=== PATIENT | female | born 1970 | race American Indian/Alaskan Native ===

== ENCOUNTER 2020-07-10 00:55 | Emergency (ER) | payer MEDICAID, MEDICARE ==
[2020-07-10] MEDS ORDERED: ZIPRASIDONE MESYLATE 20 MG VIAL IM ONE ×2 (01:48)
[2020-07-10] MEDS ORDERED: WATER FOR INJ Sterile (PF) 10 ML IM ONE (01:49)
[2020-07-10] MEDS ORDERED: WATER FOR INJ Sterile (PF) 10 ML ONE ×2 (01:50)
--- NOTE | 2020-07-10 01:52 | Emergency Department Report ---
ED Psych HPI - General Chief Complaint: Psych Stated Complaint: PSYCH Time Seen by Provider: 07/10/20 01:39 Source: patient, EMS Mode of arrival: Ambulatory - History of Present Illness Initial Comments: Patient is 49 years old female with history of hypertension, diabetes and un known psychiatric medical history. Patient presented to the emergency room via EMS from a local assisted. Patient screaming loudly and very agitated. Patient is talking to herself. Patient stated that she is seeing things and hearing voices. Patient denied any suicidal ideation or homicidal ideation. Patient obviously responding to internal stimuli. Patient is in acute psychosis. Patient given Geodon 20 mg IM. Complaint: altered mental status -: unknown Associated Psychiatric Symptoms: racing thoughts, auditory hallucinations, visual hallucinations - Related Data Home Medications Medication Instructions Recorded Confirmed Last Taken FLUoxetine HCL [Prozac] 10 mg PO DAILY 07/11/20 07/11/20 Unknown OLANZapine [Zyprexa] 2.5 mg PO DAILY 07/11/20 07/11/20 Unknown traZODone [Desyrel] 50 mg PO QHS 07/11/20 07/11/20 Unknown Allergies Allergy/AdvReac Type Severity Reaction Status Date / Time haloperidol [From Haldol] Allergy Unknown Verified 07/10/20 01:32 ED Review of Systems ROS: Stated complaint: PSYCH Other details as noted in HPI Comment: Unobtainable due to pts medical conditions ED Past Medical Hx - Past Medical History Previous Medical History?: Yes Hx Hypertension: Yes Hx Diabetes: Yes - Surgical History Past Surgical History?: Yes Additional Surgical History: "I don't remember", pt stated - Social History Smoking Status: Never Smoker Substance Use Type: None - Medications Home Medications: Home Medications Medication Instructions Recorded Confirmed Last Taken Type FLUoxetine HCL [Prozac] 10 mg PO DAILY 07/11/20 07/11/20 Unknown History OLANZapine [Zyprexa] 2.5 mg PO DAILY 07/11/20 07/11/20 Unknown History traZODone [Desyrel] 50 mg PO QHS 07/11/20 07/11/20 Unknown History ED Physical Exam - General Limitations: No Limitations General appearance: alert, other (Agitated) - Head Head exam: Present: atraumatic, normocephalic, normal inspection - Eye Eye exam: Present: normal appearance - ENT ENT exam: Present: normal exam, normal orophraynx, mucous membranes moist - Neck Neck exam: Present: normal inspection. Absent: tenderness, meningismus - Respiratory Respiratory exam: Present: normal lung sounds bilaterally - Cardiovascular Cardiovascular Exam: Present: regular rate, normal rhythm, normal heart sounds - GI/Abdominal GI/Abdominal exam: Present: soft, normal bowel sounds. Absent: distended, tenderness, guarding, rebound, rigid, organomegaly, mass, bruit, pulsatile mass, hernia - Extremities Exam Extremities exam: Present: normal inspection, normal capillary refill - Back Exam Back exam: Present: normal inspection, full ROM. Absent: CVA tenderness (R), CVA tenderness (L) - Neurological Exam Neurological exam: Present: alert, altered, CN II-XII intact, normal gait. Absent: motor sensory deficit - Psychiatric Psychiatric exam: Present: agitated, anxious, manic. Absent: homicidal ideation, suicidal ideation - Skin Skin exam: Present: warm, intact, normal color ED Course Vital Signs 07/10/20 07/10/20 07/10/20 01:25 05:53 08:30 Temperature 98.8 F 97.6 F Pulse Rate 99 H 72 68 Respiratory 16 16 18 Rate Blood Pressure 160/111 116/69 112/64 [Right] O2 Sat by Pulse 99 100 99 Oximetry ED Medical Decision Making - Lab Data Result diagrams: 07/10/20 04:12 07/10/20 04:12 Critical care attestation.: If time is entered above; I have spent that time in minutes in the direct care of this critically ill patient, excluding procedure time. ED Disposition Clinical Impression: Medical clearance for psychiatric admission Disposition: [id number] PSY HOSP/PSY UNIT Is pt being admited?: No Condition: Good Referrals: PRIMARY CARE, [Primary Care Provider] - 3-5 Days
[2020-07-10 04:35] LABS: Eosinophils # (Auto) 0.1 K/mm3 (0.0-0.4); Eosinophils % (Auto) 1.9 % (0.0-4.3); Hematocrit 38.7 % (30.3-42.9); Hemoglobin 12.7 gm/dl (10.1-14.3); Lymphocytes # (Auto) 1.9 K/mm3 (1.2-5.4); Lymphocytes % (Auto) 40.3 % (13.4-35.0); Mean Corpuscular HGB Conc 33 % (30-34); Mean Corpuscular Volume 85 fl (79-97); Monocytes # (Auto) 0.3 K/mm3 (0.0-0.8); Monocytes % (Auto) 6.5 % (0.0-7.3); Platelet Count 201 K/mm3 (140-440); Red Blood Count 4.58 M/mm3 (3.65-5.03); Red Cell Distribution Width 13.5 % (13.2-15.2)
[2020-07-10 04:37] LABS: Basophils % (Auto) 0.7 % (0.0-1.8)
[2020-07-10 04:46] LABS: Blood Urea Nitrogen 7 mg/dL (7-17); Calcium 10.3 mg/dL (8.4-10.2); Hemolysis Index 6
[2020-07-10 04:47] LABS: BUN/Creatinine Ratio 12
[2020-07-10 09:30] LABS: Bacteria,Urine 1+ /HPF (Negative); Bilirubin,Urine NEG (Negative); Blood,Urine NEG (Negative); Color,Urine Yellow (Yellow); Mucus,Urine FEW /HPF
[2020-07-10 09:46] LABS: Calcium Oxalate Crystals,Urine 1+
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
[2020-07-10] MEDS ORDERED: FLUoxetine 10 MG TAB PO SCH (11:00)
[2020-07-10 11:25] VITALS: BP 112/64
[2020-07-10 11:43] LABS: Amphetamine Screen,Urine Negative; Benzodiazepines Screen,Urine Negative; Cannabinoid Screen,Urine Negative; Cocaine Screen,Urine Negative; Methadone Screen,Urine Negative; Opiate Screen,Urine Negative
--- NOTE | 2020-07-10 17:33 | Event Note ---
Date: 07/10/20 The patient was evaluated in the emergency department for symptoms described in the history of present illness. He/she was evaluated in the context of the global COVID-19 pandemic, which necessitated consideration that the patient might be at risk for infection with the virus that causes COVID-19. Institutional protocols and algorithms that pertain to the evaluation of patients at risk for COVID-19 are in a state of rapid change based on information released by regulatory bodies including the CDC and federal and state organizations. These policies and algorithms were followed during the patient's care in the emergency department. Please note that these policies, procedures and recommendations changed on a rapid basis. Psychiatric recommendations reviewed and appreciated. Nursing documentation, emergency medicine documentation reviewed and appreciated. Patient resting comfortably in room 13 at this time, and in no acute distress. It appears she was medically cleared on her initial ER evaluation. Urinalysis reviewed and appreciated. This is a contaminated sample. To my knowledge, the patient has not articulated any urinary symptoms. Patient has been accepted to our fifth floor geriatric psychiatry unit. Lab Results 07/10/20 07/10/20 07/10/20 Range/Units 04:12 04:12 04:12 WBC (4.5-11.0) K/mm3 RBC (3.65-5.03) M/mm3 Hgb (10.1-14.3) gm/dl Hct (30.3-42.9) % MCV (79-97) fl MCH (28-32) pg MCHC (30-34) % RDW (13.2-15.2) % Plt Count (140-440) K/mm3 Lymph % (Auto) (13.4-35.0) % Gilchrist % (Auto) (0.0-7.3) % Eos % (Auto) (0.0-4.3) % Baso % (Auto) (0.0-1.8) % Lymph # (Auto) (1.2-5.4) K/mm3 Gilchrist # (Auto) (0.0-0.8) K/mm3 Eos # (Auto) (0.0-0.4) K/mm3 Baso # (Auto) (0.0-0.1) K/mm3 Seg Neutrophils % (40.0-70.0) % Seg Neutrophils # (1.8-7.7) K/mm3 Sodium 138 (137-145) mmol/L Potassium 4.2 (3.6-5.0) mmol/L Chloride 104.6 (98-107) mmol/L Carbon Dioxide 24 (22-30) mmol/L Anion Gap 14 mmol/L BUN 7 (7-17) mg/dL Creatinine 0.6 (0.6-1.2) mg/dL Estimated GFR > 60 ml/min BUN/Creatinine Ratio 12 % Glucose 237 H (65-100) mg/dL Calcium 10.3 H (8.4-10.2) mg/dL HCG, Qual (Negative) Urine Color (Yellow) Urine Turbidity (Clear) Urine pH (5.0-7.0) Ur Specific Mcintosh (1.003-1.030) Urine Protein (Negative) mg/dL Urine Glucose (UA) (Negative) mg/dL Urine Ketones (Negative) mg/dL Urine Blood (Negative) Urine Nitrite (Negative) Urine Bilirubin (Negative) Urine Urobilinogen (<2.0) mg/dL Ur Leukocyte Esterase (Negative) Urine WBC (Auto) (0.0-6.0) /HPF Urine RBC (Auto) (0.0-6.0) /HPF U Epithel Cells (Auto) (0-13.0) /HPF Urine Bacteria (Auto) (Negative) /HPF Calcium Oxalate Crystal Urine Mucus /HPF Salicylates < 0.3 L (2.8-20.0) mg/dL Urine Opiates Screen Urine Methadone Screen Acetaminophen 5.0 L (10.0-30.0) ug/mL Ur Barbiturates Screen Ur Phencyclidine Scrn Ur Amphetamines Screen U Benzodiazepines Scrn Urine Cocaine Screen U Marijuana (THC) Screen Drugs of Abuse Note Plasma/Serum Alcohol (0-0.07) % Coronavirus (PCR) (Negative) 07/10/20 07/10/20 07/10/20 Range/Units 04:12 04:12 04:12 WBC 4.6 (4.5-11.0) K/mm3 RBC 4.58 (3.65-5.03) M/mm3 Hgb 12.7 (10.1-14.3) gm/dl Hct 38.7 (30.3-42.9) % MCV 85 (79-97) fl MCH 28 (28-32) pg MCHC 33 (30-34) % RDW 13.5 (13.2-15.2) % Plt Count 201 (140-440) K/mm3 Lymph % (Auto) 40.3 H (13.4-35.0) % Gilchrist % (Auto) 6.5 (0.0-7.3) % Eos % (Auto) 1.9 (0.0-4.3) % Baso % (Auto) 0.7 (0.0-1.8) % Lymph # (Auto) 1.9 (1.2-5.4) K/mm3 Gilchrist # (Auto) 0.3 (0.0-0.8) K/mm3 Eos # (Auto) 0.1 (0.0-0.4) K/mm3 Baso # (Auto) 0.0 (0.0-0.1) K/mm3 Seg Neutrophils % 50.6 (40.0-70.0) % Seg Neutrophils # 2.3 (1.8-7.7) K/mm3 Sodium (137-145) mmol/L Potassium (3.6-5.0) mmol/L Chloride (98-107) mmol/L Carbon Dioxide (22-30) mmol/L Anion Gap mmol/L BUN (7-17) mg/dL Creatinine (0.6-1.2) mg/dL Estimated GFR ml/min BUN/Creatinine Ratio % Glucose (65-100) mg/dL Calcium (8.4-10.2) mg/dL HCG, Qual Negative (Negative) Urine Color (Yellow) Urine Turbidity (Clear) Urine pH (5.0-7.0) Ur Specific Mcintosh (1.003-1.030) Urine Protein (Negative) mg/dL Urine Glucose (UA) (Negative) mg/dL Urine Ketones (Negative) mg/dL Urine Blood (Negative) Urine Nitrite (Negative) Urine Bilirubin (Negative) Urine Urobilinogen (<2.0) mg/dL Ur Leukocyte Esterase (Negative) Urine WBC (Auto) (0.0-6.0) /HPF Urine RBC (Auto) (0.0-6.0) /HPF U Epithel Cells (Auto) (0-13.0) /HPF Urine Bacteria (Auto) (Negative) /HPF Calcium Oxalate Crystal Urine Mucus /HPF Salicylates (2.8-20.0) mg/dL Urine Opiates Screen Urine Methadone Screen Acetaminophen (10.0-30.0) ug/mL Ur Barbiturates Screen Ur Phencyclidine Scrn Ur Amphetamines Screen U Benzodiazepines Scrn Urine Cocaine Screen U Marijuana (THC) Screen Drugs of Abuse Note Plasma/Serum Alcohol < 0.01 (0-0.07) % Coronavirus (PCR) (Negative) 07/10/20 07/10/20 07/10/20 Range/Units 10:15 Unknown Unknown WBC (4.5-11.0) K/mm3 RBC (3.65-5.03) M/mm3 Hgb (10.1-14.3) gm/dl Hct (30.3-42.9) % MCV (79-97) fl MCH (28-32) pg MCHC (30-34) % RDW (13.2-15.2) % Plt Count (140-440) K/mm3 Lymph % (Auto) (13.4-35.0) % Gilchrist % (Auto) (0.0-7.3) % Eos % (Auto) (0.0-4.3) % Baso % (Auto) (0.0-1.8) % Lymph # (Auto) (1.2-5.4) K/mm3 Gilchrist # (Auto) (0.0-0.8) K/mm3 Eos # (Auto) (0.0-0.4) K/mm3 Baso # (Auto) (0.0-0.1) K/mm3 Seg Neutrophils % (40.0-70.0) % Seg Neutrophils # (1.8-7.7) K/mm3 Sodium (137-145) mmol/L Potassium (3.6-5.0) mmol/L Chloride (98-107) mmol/L Carbon Dioxide (22-30) mmol/L Anion Gap mmol/L BUN (7-17) mg/dL Creatinine (0.6-1.2) mg/dL Estimated GFR ml/min BUN/Creatinine Ratio % Glucose (65-100) mg/dL Calcium (8.4-10.2) mg/dL HCG, Qual (Negative) Urine Color Yellow (Yellow) Urine Turbidity Cloudy (Clear) Urine pH 6.0 (5.0-7.0) Ur Specific Mcintosh 1.023 (1.003-1.030) Urine Protein 30 mg/dl (Negative) mg/dL Urine Glucose (UA) >=500 (Negative) mg/dL Urine Ketones Neg (Negative) mg/dL Urine Blood Neg (Negative) Urine Nitrite Neg (Negative) Urine Bilirubin Neg (Negative) Urine Urobilinogen 2.0 (<2.0) mg/dL Ur Leukocyte Esterase Lg (Negative) Urine WBC (Auto) 85.0 H (0.0-6.0) /HPF Urine RBC (Auto) 22.0 (0.0-6.0) /HPF U Epithel Cells (Auto) 16.0 H (0-13.0) /HPF Urine Bacteria (Auto) 1+ (Negative) /HPF Calcium Oxalate Crystal 1+ Urine Mucus Few /HPF Salicylates (2.8-20.0) mg/dL Urine Opiates Screen Negative Urine Methadone Screen Negative Acetaminophen (10.0-30.0) ug/mL Ur Barbiturates Screen Negative Ur Phencyclidine Scrn Negative Ur Amphetamines Screen Negative U Benzodiazepines Scrn Negative Urine Cocaine Screen Negative U Marijuana (THC) Screen Negative Drugs of Abuse Note Disclamer Plasma/Serum Alcohol (0-0.07) % Coronavirus (PCR) Negative (Negative) Vital Signs 07/10/20 07/10/20 07/10/20 01:25 05:53 08:30 Temperature 98.8 F 97.6 F Pulse Rate 99 H 72 68 Respiratory 16 16 18 Rate Blood Pressure 160/111 116/69 112/64 [Right] O2 Sat by Pulse 99 100 99 Oximetry
[2020-07-10] MEDS ORDERED: traZODone 50 MG TAB PO SCH (22:00)
== END 2020-07-10 18:39 ==
LOC: ED 00:55
DX: R41.82 Altered mental status, unspecified (principal); I10 Essential (primary) hypertension; E11.9 Type 2 diabetes mellitus without complications; Z79.899 Other long term (current) drug therapy; Z04.6 Encounter for general psychiatric examination, requested by authority
CPT/HCPCS: 36415; 80048; 80307; 80320; 81001; 84703; 85025; 87086; G0480; J3486; U0003

== ENCOUNTER 2020-07-10 17:03 | Inpatient (IN) | payer MEDICARE ==
[2020-07-10 21:35] LABS: Alanine Aminotransferase 43 units/L (7-56); Albumin 4.2 g/dL (3.9-5); Blood Urea Nitrogen 11 mg/dL (7-17); Calcium 11.2 mg/dL (8.4-10.2); Hemolysis Index 5
[2020-07-10 21:38] LABS: BUN/Creatinine Ratio 22
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
[2020-07-11] MEDS: FLUoxetine 10 MG TAB PO SCH (10:55)
--- NOTE | 2020-07-11 19:33 | Consultation ---
History of Present Illness - Reason for Consult Consult date: 07/12/20 Medical Management Requesting physician: JOE RAJPUT - History of Present Illness 49 YO Female with HTN, DM admitted to [facility] for Psychiatric stabilization. Consult placed by Dr. Rajput for medical management. The patient was seen and evaluated in his room. Patient resting. Patient is minimally cooperative with exam and interview. Pt denies fever, chills, chest pain, palpitation, productive cough, skin rash, recent ill contacts, or known exposure to COVID-19. No reported nursing events. Past History Past Medical History: diabetes, hypertension Past Surgical History: No surgical history, Other (reviewed) Social history: single. denies: smoking, alcohol abuse Family history: diabetes, hypertension Medications and Allergies Allergies Allergy/AdvReac Type Severity Reaction Status Date / Time haloperidol [From Haldol] Allergy Unknown Verified 07/10/20 01:32 Home Medications Medication Instructions Recorded Confirmed Last Taken Type FLUoxetine HCL [Prozac] 10 mg PO DAILY 07/11/20 07/11/20 Unknown History OLANZapine [Zyprexa] 2.5 mg PO DAILY 07/11/20 07/11/20 Unknown History traZODone [Desyrel] 50 mg PO QHS 07/11/20 07/11/20 Unknown History Active Meds: Active Medications Fluoxetine HCl (Fluoxetine 10 Mg Tab) 10 mg PO DAILY [facility] Last Admin: 07/11/20 10:55 Dose: 10 mg Documented by: Trazodone HCl (Trazodone 50 Mg Tab) 50 mg PO QHS [facility] Review of Systems Constitutional: no weight loss, no weight gain, no fever, no chills Ears, nose, mouth and throat: no ear pain, no ear discharge, no decreased hearing, no nose pain, no nasal congestion Breasts: no change in shape, no swelling, no mass Cardiovascular: no chest pain, no palpitations, no edema, no syncope Respiratory: no cough, no hemoptysis, no shortness of breath Gastrointestinal: no abdominal pain, no nausea, no diarrhea, no constipation, no change in bowel habits, no coffee ground emesis Genitourinary Female: no pelvic pain, no flank pain, no dysuria, no urinary frequency, no urgency Rectal: no pain, no incontinence, no bleeding Musculoskeletal: no neck stiffness, no neck pain, no shooting arm pain Integumentary: no rash, no pruritis, no sores, no jaundice Neurological: no head injury, no transient paralysis, no paralysis, no parathesias, no numbness, no syncope Psychiatric: anxiety Endocrine: no cold intolerance, no heat intolerance, no excessive thirst, no polydipsia, no polyuria, no nocturia Hematologic/Lymphatic: no easy bruising, no easy bleeding Allergic/Immunologic: no urticaria, no wheezing Exam - Constitutional Vitals: Temp Pulse Resp BP Pulse Ox 97.9 F 79 16 135/84 97 07/11/20 09:03 07/11/20 09:03 07/11/20 09:03 07/11/20 09:03 07/11/20 09:03 General appearance: Present: obese - EENT Eyes: Present: PERRL ENT: hearing intact, clear oral mucosa - Neck Neck: Present: supple, normal ROM - Respiratory Respiratory effort: normal Respiratory: bilateral: CTA - Cardiovascular Heart Sounds: Present: S1 & S2. Absent: rub, click - Extremities Extremities: pulses symmetrical, No edema Peripheral Pulses: within normal limits - Abdominal General gastrointestinal: Present: soft, non-tender, non-distended, normal bowel sounds Female genitourinary: Present: normal - Integumentary Integumentary: Present: clear, warm, dry - Musculoskeletal Musculoskeletal: gait normal, strength equal bilaterally - Psychiatric Psychiatric: appropriate mood/affect, intact judgment & insight - Neurologic Neurologic: CNII-XII intact, moves all extremities Results - Labs CBC & Chem 7: 07/10/20 20:30 Labs: Abnormal lab results 07/10/20 07/10/20 07/10/20 Range/Units 20:30 20:30 21:50 Creatinine 0.5 L (0.6-1.2) mg/dL Glucose 303 H (65-100) mg/dL POC Glucose 280 H (70-105) mg/dL Calcium 11.2 H (8.4-10.2) mg/dL Valproic Acid < 2.8 L (50-100) ug/mL 07/11/20 07/11/20 07/11/20 Range/Units 06:30 11:35 16:14 Creatinine (0.6-1.2) mg/dL Glucose (65-100) mg/dL POC Glucose 226 H 240 H 239 H (70-105) mg/dL Calcium (8.4-10.2) mg/dL Valproic Acid (50-100) ug/mL Assessment and Plan - Patient Problems (1) HTN (hypertension) Current Visit: Yes Status: Acute Qualifiers: Hypertension type: essential hypertension Qualified Code(s): I10 - Essential (primary) hypertension Plan to address problem: Monitor BP q shift, continue medical management. (2) Diabetes Current Visit: Yes Status: Acute Plan to address problem: consistent carbohydrate diet, oral antihyperglycemic therapy, supportive care. (3) Obesity (BMI 30-39.9) Current Visit: Yes Status: Acute Plan to address problem: Balanced diet, increased physical activity at discharge,
[2020-07-11] MEDS: traZODone 50 MG TAB PO SCH (21:58)
--- NOTE | 2020-07-12 08:03 | Progress Note ---
Subjective Date of service: 07/12/20 Principal diagnosis: 1) Schizophrenia Subjective Comment: Per Psych Nurse: Last evening the patient was irritable and accusatory. She is quick to anger. Her affect is angry and mood is angry. Patient is intrusive and tells others what to do. She has a good appetite and was medication compliant. Overnight the patient woke and yelled 2 times but returned to bed. Will continue to monitor patient for safety. Psych Progress HPI In my interview with the patient this morning, the patient is in hallway, loud, restless, hyperactive and very uncooperative. Patient also paranoid about so many things, pt is obsessed with so many things, obsessed with race issues, tv issues, talks about police, past relationships, psychiatric medications in nilesh loosely associated manner without prompt. Though pt is alert and oriented to facility, knows she is in [facility] on [facility]th floor and admitted from ER. SHe is obsessed with an idea of herself, hw she is better knowing and more intelligent than others Reason for continuing inpatient treatment: Pt appears manic, in mental distress, and appears as danger to self and other patients due to poor ability to reason and care for self. WIll give meds IM, pt wont take oral meds at thsi time. Review of Symptoms: Constitutional: Negative for weight loss ENT: Negative for stridor Respiratory: Negative for cough or hemoptysis All other systems reviewed and are negative MENTAL STATUS EXAMINATION General Appearance and Behavior: Age appropriate, good hygiene, wearing appropriate clothes, good eye contact, cooperative, irritable Cooperation: Participating/engaged Psychomotor Behavior: unremarkable and within normal limits Mood: " im great" Affect and affective range: dysthymic Thought Process: illogical, loose associations Thought Content: obsessions, grandiosity Speech: Normal volume, Regular rate and rhythm, Intellectual Functioning: Average Suicidal Ideation: Denies SI Homicidal Ideation: Denies HI Impulse Control: Unimpaired Insight and Judgment: limited insight and judgment, Memory: imparied unable to recall incident leading to admission Attention: Normal, Orientation: Alert, oriented. Assessment (1) Schizophrenia Current Visit: Yes Status: Acute Treatment Plan Shira have patient on GEodon IM for now Patient admitted for inpatient psychiatric evaluation, medication adjustment and close monitoring The patient's behavior, mood, sleep and appetite will be closely monitored. Patient enrolled in individual and group therapeutic sessions and encouraged to attend. Patient provided with a safe and structured environment. Patient's physical health needs will be addressed by the Hospitalist. Hospitalist Consulted Labs including CBC, CMP, Lipid profile and Hemoglobin A1C levels ordered for baseline reference Social Assessment will be completed and the [id number] Technical Lead will work with patient and family to ensure a suitable and safe disposition Medication adjustment will be made as clinically indicated Usual Wellness Gnosticist/Preservation: - Start Trazodone 50 mg po QHS & 50 mg po QHS PRN between 10 PM & 2 AM for insomnia - Start Melatonin 5 mg po QHS to promote circadian rhythm - Start [place]-3 for brain health, reduce impulsivity, and as adjunctive treatment for mood disorder, continue upon discharge given overall benefits. - Start B1 prophylaxis with 200 mg po for 5 days The patient agreed on the treatment plan, understood the risk, benefit, alternative treatment, potential consequence of no treatment, and gave informed consent. Initial Certification Inpatient psych services: I certify that the inpatient psychiatric services are required for treatment that could reasonably be expected to improve the patient's condition. Estimated days: 7 Post hospital care: primary care provider, psychiatric provider Medications and Allergies Allergies Allergy/AdvReac Type Severity Reaction Status Date / Time haloperidol [From Haldol] Allergy Unknown Verified 07/10/20 01:32 Home Medications Medication Instructions Recorded Confirmed Last Taken Type FLUoxetine HCL [Prozac] 10 mg PO DAILY 07/11/20 07/11/20 Unknown History OLANZapine [Zyprexa] 2.5 mg PO DAILY 07/11/20 07/11/20 Unknown History traZODone [Desyrel] 50 mg PO QHS 07/11/20 07/11/20 Unknown History Active Meds: Active Medications Fluoxetine HCl (Fluoxetine 10 Mg Tab) 10 mg PO DAILY [facility] Last Admin: 07/11/20 10:55 Dose: 10 mg Documented by: Trazodone HCl (Trazodone 50 Mg Tab) 50 mg PO QHS [facility] Last Admin: 07/11/20 21:58 Dose: 50 mg Documented by: Results - Results Labs/Vitals: Laboratory Last Values Sodium 137 mmol/L (137-145) 07/10/20 20:30 Potassium 4.4 mmol/L (3.6-5.0) 07/10/20 20:30 Chloride 102.6 mmol/L (98-107) 07/10/20 20:30 Carbon Dioxide 24 mmol/L (22-30) 07/10/20 20:30 Anion Gap 15 mmol/L 07/10/20 20:30 BUN 11 mg/dL (7-17) 07/10/20 20:30 Creatinine 0.5 mg/dL (0.6-1.2) L 07/10/20 20:30 Estimated GFR > 60 ml/min 07/10/20 20:30 BUN/Creatinine Ratio 22 % 07/10/20 20:30 Glucose 303 mg/dL (65-100) H 07/10/20 20:30 POC Glucose 239 mg/dL (70-105) H 07/11/20 16:14 Calcium 11.2 mg/dL (8.4-10.2) H 07/10/20 20:30 Total Bilirubin 0.50 mg/dL (0.1-1.2) 07/10/20 20:30 AST 28 units/L (5-40) 07/10/20 20:30 ALT 43 units/L (7-56) 07/10/20 20:30 Alkaline Phosphatase 128 units/L (35-129) 07/10/20 20:30 Total Protein 7.0 g/dL (6.3-8.2) 07/10/20 20:30 Albumin 4.2 g/dL (3.9-5) 07/10/20 20:30 Albumin/Globulin Ratio 1.5 % 07/10/20 20:30 TSH 1.090 mlU/mL (0.270-4.200) 07/10/20 20:30 Valproic Acid < 2.8 ug/mL (50-100) L 07/10/20 20:30 Last Vital Signs Temp 98.4 F 07/11/20 22:00 Pulse 82 07/11/20 22:00 Resp 18 07/11/20 22:00 BP 111/63 07/11/20 22:00 Pulse Ox 98 07/11/20 22:00
[2020-07-12] MEDS ORDERED: ZIPRASIDONE MESYLATE 20 MG VIAL IM PRN (08:34)
[2020-07-12] MEDS ORDERED: LORazepam 2 MG/ML VIAL IM PRN (08:34)
[2020-07-12] MEDS ORDERED: HALOPERIDOL LACTATE 5 MG/1 ML INJ IM PRN (09:24)
[2020-07-12] MEDS: FLUoxetine 10 MG TAB PO SCH (12:53)
[2020-07-12] MEDS: metFORMIN 500 MG TAB PO SCH ×2 (13:53→17:30)
[2020-07-12] MEDS: VALPROIC ACID 250 MG CAP PO SCH ×2 (13:54→21:58)
--- NOTE | 2020-07-12 14:59 | Progress Note ---
Assessment and Plan - Patient Problems (1) HTN (hypertension) Current Visit: Yes Status: Acute Qualifiers: Hypertension type: essential hypertension Qualified Code(s): I10 - Essential (primary) hypertension Plan to address problem: Monitor BP q shift, continue medical management. (2) Diabetes Current Visit: Yes Status: Acute Plan to address problem: consistent carbohydrate diet, oral antihyperglycemic therapy, supportive care. (3) Obesity (BMI 30-39.9) Current Visit: Yes Status: Acute Plan to address problem: Balanced diet, increased physical activity at discharge, History Interval history: 49 YO Female with HTN, DM admitted to [facility] for Psychiatric stabilization. The patient was seen and evaluated in her room. Patient resting. Patient is minimally cooperative with exam and interview. Pt denies fever, chills, chest pain, palpitation, productive cough, skin rash, recent ill contacts, or known exposure to COVID-19. No reported nursing events. Hospitalist Physical - Constitutional Vitals: Temp Pulse Resp BP Pulse Ox 98.4 F 82 18 111/63 98 07/11/20 22:00 07/11/20 22:00 07/11/20 22:00 07/11/20 22:00 07/11/20 22:00 General appearance: Present: obese - EENT Eyes: Present: PERRL, EOM intact ENT: hearing intact - Neck Neck: Present: supple - Respiratory Respiratory effort: normal Respiratory: bilateral: CTA - Cardiovascular Rhythm: regular Heart Sounds: Present: S1 & S2 - Extremities Extremities: no ischemia Peripheral Pulses: within normal limits - Abdominal General gastrointestinal: soft, non-tender, non-distended - Integumentary Integumentary: Present: clear, dry - Psychiatric Psychiatric: agitated - Neurologic Neurologic: CNII-XII intact Results - Labs CBC & Chem 7: 07/10/20 20:30 Labs: Laboratory Last Values Sodium 137 mmol/L (137-145) 07/10/20 20:30 Potassium 4.4 mmol/L (3.6-5.0) 07/10/20 20:30 Chloride 102.6 mmol/L (98-107) 07/10/20 20:30 Carbon Dioxide 24 mmol/L (22-30) 07/10/20 20:30 Anion Gap 15 mmol/L 07/10/20 20:30 BUN 11 mg/dL (7-17) 07/10/20 20:30 Creatinine 0.5 mg/dL (0.6-1.2) L 07/10/20 20:30 Estimated GFR > 60 ml/min 07/10/20 20:30 BUN/Creatinine Ratio 22 % 07/10/20 20:30 Glucose 303 mg/dL (65-100) H 07/10/20 20:30 POC Glucose 239 mg/dL (70-105) H 07/11/20 16:14 Calcium 11.2 mg/dL (8.4-10.2) H 07/10/20 20:30 Total Bilirubin 0.50 mg/dL (0.1-1.2) 07/10/20 20:30 AST 28 units/L (5-40) 07/10/20 20:30 ALT 43 units/L (7-56) 07/10/20 20:30 Alkaline Phosphatase 128 units/L (35-129) 07/10/20 20:30 Total Protein 7.0 g/dL (6.3-8.2) 07/10/20 20:30 Albumin 4.2 g/dL (3.9-5) 07/10/20 20:30 Albumin/Globulin Ratio 1.5 % 07/10/20 20:30 TSH 1.090 mlU/mL (0.270-4.200) 07/10/20 20:30 Valproic Acid < 2.8 ug/mL (50-100) L 07/10/20 20:30 Bello/IV: Voiding Method Toilet Active Medications - Current Medications Current Medications: Generic Name Dose Route Start Last Admin Trade Name Freq PRN Reason Stop Dose Admin Fluoxetine HCl 10 mg 07/11/20 10:00 07/12/20 12:53 Fluoxetine 10 Mg Tab PO 10 mg DAILY JORGE Administration Lorazepam 2 mg 07/12/20 08:34 07/12/20 08:59 Lorazepam 2 Mg/Ml Vial IM 2 mg Q4HR PRN Administration Agitation Metformin HCl 500 mg 07/12/20 12:52 07/12/20 13:53 Metformin 500 Mg Tab PO 500 mg BIDDIAB JORGE Administration Trazodone HCl 50 mg 07/11/20 22:00 07/11/20 21:58 Trazodone 50 Mg Tab PO 50 mg QHS JORGE Administration Valproic Acid 250 mg 07/12/20 14:00 07/12/20 13:54 Valproic Acid 250 Mg Cap PO 250 mg TID JORGE Administration Ziprasidone 15 mg 07/12/20 15:30 Ziprasidone Mesylate 20 Mg Vial IM 07/12/20 22:01 BID JORGE
[2020-07-12] MEDS ORDERED: WATER FOR INJ Sterile (PF) 10 ML ONE (17:18)
[2020-07-12] MEDS: ZIPRASIDONE MESYLATE 20 MG VIAL IM SCH ×3 (17:29→21:59)
[2020-07-12] MEDS: traZODone 50 MG TAB PO SCH (21:58)
[2020-07-13] MEDS: FLUoxetine 10 MG TAB PO SCH (09:17)
[2020-07-13] MEDS: VALPROIC ACID 250 MG CAP PO SCH ×2 (09:17→21:22)
[2020-07-13] MEDS: metFORMIN 500 MG TAB PO SCH ×2 (09:17→16:47)
[2020-07-13] MEDS ORDERED: WATER FOR INJ Sterile (PF) 10 ML ONE (11:16)
[2020-07-13] MEDS: ZIPRASIDONE MESYLATE 20 MG VIAL IM SCH ×2 (11:18→16:47)
--- NOTE | 2020-07-13 14:50 | Progress Note ---
Subjective Date of service: 07/13/20 Principal diagnosis: 1) Schizophrenia Subjective Comment: Per Psych Nurse:Received patient at 1900 on 07/12. She was in her room resting with even and unlabored breathing. Last evening the patient sat in the floor often. She was responding to internal stimuli. Patient was easily irritated. She had good appetite and was medication compliant. Overnight the patient rested quietly and slept 8 hours. Will continue to monitor patient for safety. Psych Progress HPI Patient seen this AM, appears calm and reports "I guess I am feeling better today" but as soon as I engaged patient with questions she started talking about bible scriptures, race issues got up and walking around. Reason for continuing inpatient treatment: Pt appears manic, in mental distress, and appears as danger to self and other patients due to poor ability to reason and care for self. Will give meds IM, pt wont take oral meds at thsi time. Review of Symptoms: Constitutional: Negative for weight loss ENT: Negative for stridor Respiratory: Negative for cough or hemoptysis All other systems reviewed and are negative MENTAL STATUS EXAMINATION General Appearance and Behavior: Age appropriate, good hygiene, wearing appropriate clothes, good eye contact, cooperative, irritable Cooperation: Participating/engaged Psychomotor Behavior: unremarkable and within normal limits Mood: " im great" Affect and affective range: dysthymic Thought Process: illogical, loose associations Thought Content: obsessions, grandiosity Speech: Normal volume, Regular rate and rhythm, Intellectual Functioning: Average Suicidal Ideation: Denies SI Homicidal Ideation: Denies HI Impulse Control: Unimpaired Insight and Judgment: limited insight and judgment, Memory: imparied unable to recall incident leading to admission Attention: Normal, Orientation: Alert, oriented. Assessment (1) Schizophrenia Current Visit: Yes Status: Acute Treatment Plan Shira have patient on GEodon IM for now Patient admitted for inpatient psychiatric evaluation, medication adjustment and close monitoring The patient's behavior, mood, sleep and appetite will be closely monitored. Patient enrolled in individual and group therapeutic sessions and encouraged to attend. Patient provided with a safe and structured environment. Patient's physical health needs will be addressed by the Hospitalist. Hospitalist Consulted Labs including CBC, CMP, Lipid profile and Hemoglobin A1C levels ordered for baseline reference Social Assessment will be completed and the Channel Account Manager will work with patient and family to ensure a suitable and safe disposition Medication adjustment will be made as clinically indicated Usual Wellness Roman Catholic/Preservation: - Start Trazodone 50 mg po QHS & 50 mg po QHS PRN between 10 PM & 2 AM for insomnia - Start Melatonin 5 mg po QHS to promote circadian rhythm - Start [place]-3 for brain health, reduce impulsivity, and as adjunctive treatment for mood disorder, continue upon discharge given overall benefits. - Start B1 prophylaxis with 200 mg po for 5 days The patient agreed on the treatment plan, understood the risk, benefit, alternative treatment, potential consequence of no treatment, and gave informed consent. Initial Certification Inpatient psych services: I certify that the inpatient psychiatric services are required for treatment that could reasonably be expected to improve the patient's condition. Estimated days: 6 Post hospital care: primary care provider, psychiatric provider Medications and Allergies Allergies Allergy/AdvReac Type Severity Reaction Status Date / Time haloperidol [From Haldol] Allergy Unknown Verified 07/10/20 01:32 Home Medications Medication Instructions Recorded Confirmed Last Taken Type FLUoxetine HCL [Prozac] 10 mg PO DAILY 07/11/20 07/11/20 Unknown History OLANZapine [Zyprexa] 2.5 mg PO DAILY 07/11/20 07/11/20 Unknown History traZODone [Desyrel] 50 mg PO QHS 07/11/20 07/11/20 Unknown History Active Meds: Active Medications Fluoxetine HCl (Fluoxetine 10 Mg Tab) 10 mg PO DAILY [facility] Last Admin: 07/13/20 09:17 Dose: 10 mg Documented by: Lorazepam (Lorazepam 2 Mg/Ml Vial) 2 mg IM Q4HR PRN PRN Reason: Agitation Last Admin: 07/12/20 08:59 Dose: 2 mg Documented by: Metformin HCl (Metformin 500 Mg Tab) 500 mg PO BIDDIAB [facility] Last Admin: 07/13/20 09:17 Dose: 500 mg Documented by: Trazodone HCl (Trazodone 50 Mg Tab) 50 mg PO QHS [facility] Last Admin: 07/12/20 21:58 Dose: 50 mg Documented by: Valproic Acid (Valproic Acid 250 Mg Cap) 250 mg PO TID [facility] Last Admin: 07/13/20 09:17 Dose: 250 mg Documented by: Results - Results Labs/Vitals: Laboratory Last Values Sodium 137 mmol/L (137-145) 07/10/20 20:30 Potassium 4.4 mmol/L (3.6-5.0) 07/10/20 20:30 Chloride 102.6 mmol/L (98-107) 07/10/20 20:30 Carbon Dioxide 24 mmol/L (22-30) 07/10/20 20:30 Anion Gap 15 mmol/L 07/10/20 20:30 BUN 11 mg/dL (7-17) 07/10/20 20:30 Creatinine 0.5 mg/dL (0.6-1.2) L 07/10/20 20:30 Estimated GFR > 60 ml/min 07/10/20 20:30 BUN/Creatinine Ratio 22 % 07/10/20 20:30 Glucose 303 mg/dL (65-100) H 07/10/20 20:30 POC Glucose 194 mg/dL (70-105) H 07/13/20 06:32 Calcium 11.2 mg/dL (8.4-10.2) H 07/10/20 20:30 Total Bilirubin 0.50 mg/dL (0.1-1.2) 07/10/20 20:30 AST 28 units/L (5-40) 07/10/20 20:30 ALT 43 units/L (7-56) 07/10/20 20:30 Alkaline Phosphatase 128 units/L (35-129) 07/10/20 20:30 Total Protein 7.0 g/dL (6.3-8.2) 07/10/20 20:30 Albumin 4.2 g/dL (3.9-5) 07/10/20 20:30 Albumin/Globulin Ratio 1.5 % 07/10/20 20:30 TSH 1.090 mlU/mL (0.270-4.200) 07/10/20 20:30 Valproic Acid < 2.8 ug/mL (50-100) L 07/10/20 20:30 Last Vital Signs Temp 97.6 F 07/12/20 20:06 Pulse 75 07/12/20 20:06 Resp 16 07/12/20 20:06 BP 106/66 07/12/20 20:06 Pulse Ox 96 07/12/20 20:06
[2020-07-13] MEDS: traZODone 50 MG TAB PO SCH (21:22)
[2020-07-13] MEDS ORDERED: QUEtiapine 25 MG TAB PO SCH (22:00)
--- NOTE | 2020-07-14 09:57 | Progress Note ---
Subjective Date of service: 07/14/20 Principal diagnosis: 1) Schizophrenia Subjective Comment: Per Psych Nurse: Patient is disorganized, delusional, irritable,with flight of ideas, she was medications compliant, interact with peers,no distress noted. Will continue to monitor pt. Psych Progress HPI Patient states that when she woke up this morning, she felt uplifted and positive initially but now feeling a bit "iffy". She states that yesterday was a better day than the preceding day and she does not currently foresee having any issues today. Patient states that she has been reading the Bible, engaged in taking care of herself, eating the meals, taking the medication and she is now back in the room just to relax for the day. Reason for continuing inpatient treatment: Improving manic-like symptoms, will continue to observe for improvement in mental state Review of Symptoms: Constitutional: Negative for weight loss ENT: Negative for stridor Respiratory: Negative for cough or hemoptysis All other systems reviewed and are negative MENTAL STATUS EXAMINATION General Appearance and Behavior: Age appropriate, good hygiene, wearing appropriate clothes, good eye contact, cooperative, irritable Cooperation: Participating/engaged Psychomotor Behavior: unremarkable and within normal limits Mood: " feel better" Affect and affective range: congruent with mood Thought Process: logical Thought Content: obsessions Speech: Normal volume, Regular rate and rhythm, Intellectual Functioning: Average Suicidal Ideation: Denies SI Homicidal Ideation: Denies HI Impulse Control: Unimpaired Insight and Judgment: limited insight and judgment, Memory: improved short term memory Attention: Normal, Orientation: Alert, oriented. Assessment (1) Schizophrenia Current Visit: Yes Status: Acute Treatment Plan Seroqule 200mg BID Patient admitted for inpatient psychiatric evaluation, medication adjustment and close monitoring The patient's behavior, mood, sleep and appetite will be closely monitored. Patient enrolled in individual and group therapeutic sessions and encouraged to attend. Patient provided with a safe and structured environment. Patient's physical health needs will be addressed by the Hospitalist. Hospitalist Consulted Labs including CBC, CMP, Lipid profile and Hemoglobin A1C levels ordered for baseline reference Social Assessment will be completed and the Temporary Administrative Assistant will work with patient and family to ensure a suitable and safe disposition Medication adjustment will be made as clinically indicated Usual Wellness Yarsani/Preservation: - Start Trazodone 50 mg po QHS & 50 mg po QHS PRN between 10 PM & 2 AM for insomnia - Start Melatonin 5 mg po QHS to promote circadian rhythm - Start [place]-3 for brain health, reduce impulsivity, and as adjunctive treatment for mood disorder, continue upon discharge given overall benefits. - Start B1 prophylaxis with 200 mg po for 5 days The patient agreed on the treatment plan, understood the risk, benefit, alternative treatment, potential consequence of no treatment, and gave informed consent. Initial Certification Inpatient psych services: I certify that the inpatient psychiatric services are required for treatment that could reasonably be expected to improve the patient's condition. Estimated days: 5 Post hospital care: primary care provider, psychiatric provider Medications and Allergies Allergies Allergy/AdvReac Type Severity Reaction Status Date / Time haloperidol [From Haldol] Allergy Unknown Verified 07/10/20 01:32 Home Medications Medication Instructions Recorded Confirmed Last Taken Type FLUoxetine HCL [Prozac] 10 mg PO DAILY 07/11/20 07/11/20 Unknown History OLANZapine [Zyprexa] 2.5 mg PO DAILY 07/11/20 07/11/20 Unknown History traZODone [Desyrel] 50 mg PO QHS 07/11/20 07/11/20 Unknown History Active Meds: Active Medications Fluoxetine HCl (Fluoxetine 10 Mg Tab) 10 mg PO DAILY [facility] Last Admin: 07/13/20 09:17 Dose: 10 mg Documented by: Lorazepam (Lorazepam 2 Mg/Ml Vial) 2 mg IM Q4HR PRN PRN Reason: Agitation Last Admin: 07/12/20 08:59 Dose: 2 mg Documented by: Metformin HCl (Metformin 500 Mg Tab) 500 mg PO BIDDIAB [facility] Last Admin: 07/13/20 16:47 Dose: 500 mg Documented by: Quetiapine Fumarate (Quetiapine 25 Mg Tab) 50 mg PO QHS [facility] Last Admin: 07/13/20 21:23 Dose: 50 mg Documented by: Trazodone HCl (Trazodone 50 Mg Tab) 50 mg PO QHS [facility] Last Admin: 07/13/20 21:22 Dose: 50 mg Documented by: Valproic Acid (Valproic Acid 250 Mg Cap) 500 mg PO BID [facility] Last Admin: 07/13/20 21:22 Dose: 500 mg Documented by: Results - Results Labs/Vitals: Laboratory Last Values Sodium 137 mmol/L (137-145) 07/10/20 20:30 Potassium 4.4 mmol/L (3.6-5.0) 07/10/20 20:30 Chloride 102.6 mmol/L (98-107) 07/10/20 20:30 Carbon Dioxide 24 mmol/L (22-30) 07/10/20 20:30 Anion Gap 15 mmol/L 07/10/20 20:30 BUN 11 mg/dL (7-17) 07/10/20 20:30 Creatinine 0.5 mg/dL (0.6-1.2) L 07/10/20 20:30 Estimated GFR > 60 ml/min 07/10/20 20:30 BUN/Creatinine Ratio 22 % 07/10/20 20:30 Glucose 303 mg/dL (65-100) H 07/10/20 20:30 POC Glucose 155 mg/dL (70-105) H 07/14/20 07:43 Calcium 11.2 mg/dL (8.4-10.2) H 07/10/20 20:30 Total Bilirubin 0.50 mg/dL (0.1-1.2) 07/10/20 20:30 AST 28 units/L (5-40) 07/10/20 20:30 ALT 43 units/L (7-56) 07/10/20 20:30 Alkaline Phosphatase 128 units/L (35-129) 07/10/20 20:30 Total Protein 7.0 g/dL (6.3-8.2) 07/10/20 20:30 Albumin 4.2 g/dL (3.9-5) 07/10/20 20:30 Albumin/Globulin Ratio 1.5 % 07/10/20 20:30 TSH 1.090 mlU/mL (0.270-4.200) 07/10/20 20:30 Valproic Acid < 2.8 ug/mL (50-100) L 07/10/20 20:30 Last Vital Signs Temp 97.9 F 07/13/20 09:25 Pulse 82 07/13/20 09:25 Resp 18 07/13/20 09:25 BP 109/72 07/13/20 09:25 Pulse Ox 98 07/13/20 09:25
[2020-07-14] MEDS: FLUoxetine 10 MG TAB PO SCH (10:19)
[2020-07-14] MEDS: VALPROIC ACID 250 MG CAP PO SCH ×2 (10:19→21:46)
[2020-07-14] MEDS: metFORMIN 500 MG TAB PO SCH ×2 (10:20→16:48)
[2020-07-14] MEDS: QUEtiapine 200 MG TAB PO SCH ×2 (10:39→21:46)
[2020-07-14] MEDS: traZODone 50 MG TAB PO SCH (21:47)
[2020-07-15] MEDS: metFORMIN 500 MG TAB PO SCH ×2 (08:36→19:32)
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
[2020-07-15] MEDS: VALPROIC ACID 250 MG CAP PO SCH ×2 (09:27→22:07)
[2020-07-15] MEDS: QUEtiapine 200 MG TAB PO SCH ×2 (09:27→22:07)
[2020-07-15] MEDS: FLUoxetine 10 MG TAB PO SCH (09:27)
--- NOTE | 2020-07-15 20:35 | Progress Note ---
Assessment and Plan - Patient Problems (1) HTN (hypertension) Current Visit: Yes Status: Acute Qualifiers: Hypertension type: essential hypertension Qualified Code(s): I10 - Essential (primary) hypertension Plan to address problem: Monitor BP q shift, continue medical management. (2) Diabetes Current Visit: Yes Status: Acute Plan to address problem: consistent carbohydrate diet, oral antihyperglycemic therapy, supportive care. (3) Obesity (BMI 30-39.9) Current Visit: Yes Status: Acute Plan to address problem: Balanced diet, increased physical activity at discharge, History Interval history: 49 YO Female with HTN, DM admitted to [facility] for Psychiatric stabilization. The patient was seen and evaluated in her room. Patient resting. Patient is minimally cooperative with exam and interview. No reported nursing events. Hospitalist Physical - Constitutional Vitals: Temp Pulse Resp BP Pulse Ox 98.1 F 81 16 121/70 98 07/15/20 10:03 07/15/20 10:03 07/15/20 10:03 07/15/20 10:03 07/15/20 10:03 General appearance: Present: obese - EENT Eyes: Present: PERRL ENT: hearing intact, hearing decreased - Neck Neck: Present: supple - Respiratory Respiratory effort: normal Respiratory: bilateral: CTA - Cardiovascular Rhythm: regular Heart Sounds: Present: S1 & S2 - Extremities Extremities: no ischemia Peripheral Pulses: within normal limits - Abdominal General gastrointestinal: soft, non-tender, non-distended - Integumentary Integumentary: Present: clear, dry - Psychiatric Psychiatric: cooperative - Neurologic Neurologic: CNII-XII intact Results - Labs CBC & Chem 7: 07/10/20 20:30 Labs: Laboratory Last Values Sodium 137 mmol/L (137-145) 07/10/20 20:30 Potassium 4.4 mmol/L (3.6-5.0) 07/10/20 20:30 Chloride 102.6 mmol/L (98-107) 07/10/20 20:30 Carbon Dioxide 24 mmol/L (22-30) 07/10/20 20:30 Anion Gap 15 mmol/L 07/10/20 20:30 BUN 11 mg/dL (7-17) 07/10/20 20:30 Creatinine 0.5 mg/dL (0.6-1.2) L 07/10/20 20:30 Estimated GFR > 60 ml/min 07/10/20 20:30 BUN/Creatinine Ratio 22 % 07/10/20 20:30 Glucose 303 mg/dL (65-100) H 07/10/20 20:30 POC Glucose 194 mg/dL (70-105) H 07/15/20 07:49 Calcium 11.2 mg/dL (8.4-10.2) H 07/10/20 20:30 Total Bilirubin 0.50 mg/dL (0.1-1.2) 07/10/20 20:30 AST 28 units/L (5-40) 07/10/20 20:30 ALT 43 units/L (7-56) 07/10/20 20:30 Alkaline Phosphatase 128 units/L (35-129) 07/10/20 20:30 Total Protein 7.0 g/dL (6.3-8.2) 07/10/20 20:30 Albumin 4.2 g/dL (3.9-5) 07/10/20 20:30 Albumin/Globulin Ratio 1.5 % 07/10/20 20:30 TSH 1.090 mlU/mL (0.270-4.200) 07/10/20 20:30 Valproic Acid < 2.8 ug/mL (50-100) L 07/10/20 20:30 Bello/IV: Voiding Method Toilet Active Medications - Current Medications Current Medications: Generic Name Dose Route Start Last Admin Trade Name Freq PRN Reason Stop Dose Admin Fluoxetine HCl 10 mg 07/11/20 10:00 07/15/20 09:27 Fluoxetine 10 Mg Tab PO 10 mg DAILY JORGE Administration Lorazepam 2 mg 07/12/20 08:34 07/12/20 08:59 Lorazepam 2 Mg/Ml Vial IM 2 mg Q4HR PRN Administration Agitation Metformin HCl 500 mg 07/12/20 12:52 07/15/20 19:32 Metformin 500 Mg Tab PO 500 mg BIDDIAB JORGE Administration Quetiapine Fumarate 200 mg 07/14/20 10:30 07/15/20 09:27 Quetiapine 200 Mg Tab PO 200 mg BID JORGE Administration Trazodone HCl 50 mg 07/11/20 22:00 07/14/20 21:47 Trazodone 50 Mg Tab PO 50 mg QHS JORGE Administration Valproic Acid 500 mg 07/13/20 22:00 07/15/20 09:27 Valproic Acid 250 Mg Cap PO 500 mg BID JORGE Administration
[2020-07-15] MEDS: traZODone 50 MG TAB PO SCH (22:07)
--- NOTE | 2020-07-16 08:36 | Progress Note ---
Subjective Date of service: 07/16/20 Principal diagnosis: 1) Schizophrenia Subjective Comment: Per Psych Nurse:Last evening the patient had more appropriate interactions. She denies si/hi. She continues with delusions aeb believing a man that stays outside her house is having sex with other women. She is also responding to internal stimuli. Her appetite is good. She remains suspicious with medications but will take them if she sees them in the containers. Overnight she rested quietly and slept for 8 hours. Will continue to monitor patient for safety. Psych Progress HPI Patient reports sleeping overnight, resting was yesterday though she thinks the medication is possibly Depakote is what is making her to feel more sleepy and she states she might not be taking the medication anymore. Patient enlightening and informed that Depakote does not really make her sleepy, she has been awake yesterday as reported by the nurses and also she is in bed more chest because there is not much to do in the facility at the moment. Patient states that she does not want to be treated because I have been super active and talkative does not really bother her it only bothers othet people and she would like to know who is complaining. Reason for continuing inpatient treatment: Improving manic-like symptoms, will continue to observe for improvement in mental state Review of Symptoms: Constitutional: Negative for weight loss ENT: Negative for stridor Respiratory: Negative for cough or hemoptysis All other systems reviewed and are negative MENTAL STATUS EXAMINATION General Appearance and Behavior: Age appropriate, good hygiene, wearing appropriate clothes, good eye contact, cooperative, irritable Cooperation: Participating/engaged Psychomotor Behavior: unremarkable and within normal limits Mood: " feel better" Affect and affective range: congruent with mood Thought Process: logical Thought Content: obsessions Speech: Normal volume, Regular rate and rhythm, Intellectual Functioning: Average Suicidal Ideation: Denies SI Homicidal Ideation: Denies HI Impulse Control: Unimpaired Insight and Judgment: limited insight and judgment, Memory: improved short term memory Attention: Normal, Orientation: Alert, oriented. Assessment (1) Schizophrenia Current Visit: Yes Status: Acute Treatment Plan Seroqule 200mg BID Patient admitted for inpatient psychiatric evaluation, medication adjustment and close monitoring The patient's behavior, mood, sleep and appetite will be closely monitored. Patient enrolled in individual and group therapeutic sessions and encouraged to attend. Patient provided with a safe and structured environment. Patient's physical health needs will be addressed by the Hospitalist. Hospitalist Consulted Labs including CBC, CMP, Lipid profile and Hemoglobin A1C levels ordered for baseline reference Social Assessment will be completed and the Hook Up Driver will work with patient and family to ensure a suitable and safe disposition Medication adjustment will be made as clinically indicated Usual Wellness Taoism/Preservation: - Start Trazodone 50 mg po QHS & 50 mg po QHS PRN between 10 PM & 2 AM for insomnia - Start Melatonin 5 mg po QHS to promote circadian rhythm - Start [place]-3 for brain health, reduce impulsivity, and as adjunctive treatment for mood disorder, continue upon discharge given overall benefits. - Start B1 prophylaxis with 200 mg po for 5 days The patient agreed on the treatment plan, understood the risk, benefit, alternative treatment, potential consequence of no treatment, and gave informed consent. Initial Certification Inpatient psych services: I certify that the inpatient psychiatric services are required for treatment that could reasonably be expected to improve the patient's condition. Estimated days: 5 Post hospital care: primary care provider, psychiatric provider Medications and Allergies Allergies Allergy/AdvReac Type Severity Reaction Status Date / Time haloperidol [From Haldol] Allergy Unknown Verified 07/10/20 01:32 Home Medications Medication Instructions Recorded Confirmed Last Taken Type FLUoxetine HCL [Prozac] 10 mg PO DAILY 07/11/20 07/11/20 Unknown History OLANZapine [Zyprexa] 2.5 mg PO DAILY 07/11/20 07/11/20 Unknown History traZODone [Desyrel] 50 mg PO QHS 07/11/20 07/11/20 Unknown History Active Meds: Active Medications Fluoxetine HCl (Fluoxetine 10 Mg Tab) 10 mg PO DAILY [facility] Last Admin: 07/15/20 09:27 Dose: 10 mg Documented by: Lorazepam (Lorazepam 2 Mg/Ml Vial) 2 mg IM Q4HR PRN PRN Reason: Agitation Last Admin: 07/12/20 08:59 Dose: 2 mg Documented by: Metformin HCl (Metformin 500 Mg Tab) 500 mg PO BIDDIAB [facility] Last Admin: 07/15/20 19:32 Dose: 500 mg Documented by: Quetiapine Fumarate (Quetiapine 200 Mg Tab) 200 mg PO BID [facility] Last Admin: 07/15/20 22:07 Dose: 200 mg Documented by: Trazodone HCl (Trazodone 50 Mg Tab) 50 mg PO QHS [facility] Last Admin: 07/15/20 22:07 Dose: 50 mg Documented by: Valproic Acid (Valproic Acid 250 Mg Cap) 500 mg PO BID [facility] Last Admin: 07/15/20 22:07 Dose: 500 mg Documented by: Results - Results Labs/Vitals: Laboratory Last Values Sodium 137 mmol/L (137-145) 07/10/20 20:30 Potassium 4.4 mmol/L (3.6-5.0) 07/10/20 20:30 Chloride 102.6 mmol/L (98-107) 07/10/20 20:30 Carbon Dioxide 24 mmol/L (22-30) 07/10/20 20:30 Anion Gap 15 mmol/L 07/10/20 20:30 BUN 11 mg/dL (7-17) 07/10/20 20:30 Creatinine 0.5 mg/dL (0.6-1.2) L 07/10/20 20:30 Estimated GFR > 60 ml/min 07/10/20 20:30 BUN/Creatinine Ratio 22 % 07/10/20 20:30 Glucose 303 mg/dL (65-100) H 07/10/20 20:30 POC Glucose 194 mg/dL (70-105) H 07/15/20 07:49 Calcium 11.2 mg/dL (8.4-10.2) H 07/10/20 20:30 Total Bilirubin 0.50 mg/dL (0.1-1.2) 07/10/20 20:30 AST 28 units/L (5-40) 07/10/20 20:30 ALT 43 units/L (7-56) 07/10/20 20:30 Alkaline Phosphatase 128 units/L (35-129) 07/10/20 20:30 Total Protein 7.0 g/dL (6.3-8.2) 07/10/20 20:30 Albumin 4.2 g/dL (3.9-5) 07/10/20 20:30 Albumin/Globulin Ratio 1.5 % 07/10/20 20:30 TSH 1.090 mlU/mL (0.270-4.200) 07/10/20 20:30 Valproic Acid < 2.8 ug/mL (50-100) L 07/10/20 20:30 Last Vital Signs Temp 98.2 F 07/15/20 22:00 Pulse 107 H 07/15/20 22:00 Resp 18 07/15/20 22:00 BP 150/90 07/15/20 22:00 Pulse Ox 96 07/15/20 22:00
[2020-07-16] MEDS: VALPROIC ACID 250 MG CAP PO SCH ×2 (11:30→21:28)
[2020-07-16] MEDS: QUEtiapine 200 MG TAB PO SCH ×2 (11:30→21:27)
[2020-07-16] MEDS: metFORMIN 500 MG TAB PO SCH ×2 (11:30→17:06)
[2020-07-16] MEDS: FLUoxetine 10 MG TAB PO SCH (11:30)
[2020-07-16] MEDS: traZODone 50 MG TAB PO SCH (21:28)
--- NOTE | 2020-07-17 08:43 | Progress Note ---
Subjective Date of service: 07/17/20 Principal diagnosis: 1) Schizophrenia Subjective Comment: Per Psych Nurse:[id number] Pt. responds to internal stimuli and talks to herself. She is paranoid, suspicious of her meds, irritable and labile. The pathology secretary reported that pt walked to the front of the Nurses' station, acted like she was passing out, leaned on the wall and intentionally went to the floor and rolled on the floor. Pt. got up the floor and went to the Activity room and was dancing as music was going on. No acute distress noted on pt. Psych Progress HPI Patient states she woke up this morning with her mind. She endorses speaking with the case management social worker yesterday who had informed her, that her discharge is dependent on providers evaluation of he, so patient asked me what I think of her this AM. She states she would like to ho home because she believes she can take care of self. Patient states she is homeless because [employer] did her wrong, she used to live there before but she can survive being homeless and finding a place cos she is a woman with so many possessions. She denies seeing someone in her room, or hearing voices talking to her other than mine during time of interview. Reason for continuing inpatient treatment: Improving manic-like symptoms, will continue to observe for improvement in mental state Review of Symptoms: Constitutional: Negative for weight loss ENT: Negative for stridor Respiratory: Negative for cough or hemoptysis All other systems reviewed and are negative MENTAL STATUS EXAMINATION General Appearance and Behavior: Age appropriate, good hygiene, wearing appropriate clothes, good eye contact, cooperative, irritable Cooperation: Participating/engaged Psychomotor Behavior: unremarkable and within normal limits Mood: " feel better" Affect and affective range: congruent with mood Thought Process: logical Thought Content: obsessions Speech: Normal volume, Regular rate and rhythm, Intellectual Functioning: Average Suicidal Ideation: Denies SI Homicidal Ideation: Denies HI Impulse Control: Unimpaired Insight and Judgment: limited insight and judgment, Memory: improved short term memory Attention: Normal, Orientation: Alert, oriented. Assessment (1) Schizophrenia Current Visit: Yes Status: Acute Treatment Plan Seroqule 300mg BID Patient admitted for inpatient psychiatric evaluation, medication adjustment and close monitoring The patient's behavior, mood, sleep and appetite will be closely monitored. Patient enrolled in individual and group therapeutic sessions and encouraged to attend. Patient provided with a safe and structured environment. Patient's physical health needs will be addressed by the Hospitalist. Hospitalist Consulted Labs including CBC, CMP, Lipid profile and Hemoglobin A1C levels ordered for baseline reference Social Assessment will be completed and the Front Office Agent will work with patient and family to ensure a suitable and safe disposition Medication adjustment will be made as clinically indicated Usual Wellness Mandaen/Preservation: - Start Trazodone 50 mg po QHS & 50 mg po QHS PRN between 10 PM & 2 AM for insomnia - Start Melatonin 5 mg po QHS to promote circadian rhythm - Start [place]-3 for brain health, reduce impulsivity, and as adjunctive treatment for mood disorder, continue upon discharge given overall benefits. - Start B1 prophylaxis with 200 mg po for 5 days The patient agreed on the treatment plan, understood the risk, benefit, alternative treatment, potential consequence of no treatment, and gave informed consent. Initial Certification Inpatient psych services: I certify that the inpatient psychiatric services are required for treatment that could reasonably be expected to improve the patient's condition. Estimated days: 3 Post hospital care: primary care provider, psychiatric provider Medications and Allergies Allergies Allergy/AdvReac Type Severity Reaction Status Date / Time haloperidol [From Haldol] Allergy Unknown Verified 07/10/20 01:32 Home Medications Medication Instructions Recorded Confirmed Last Taken Type FLUoxetine HCL [Prozac] 10 mg PO DAILY 07/11/20 07/11/20 Unknown History OLANZapine [Zyprexa] 2.5 mg PO DAILY 07/11/20 07/11/20 Unknown History traZODone [Desyrel] 50 mg PO QHS 07/11/20 07/11/20 Unknown History Active Meds: Active Medications Fluoxetine HCl (Fluoxetine 10 Mg Tab) 10 mg PO DAILY [facility] Last Admin: 07/16/20 11:30 Dose: 10 mg Documented by: Lorazepam (Lorazepam 2 Mg/Ml Vial) 2 mg IM Q4HR PRN PRN Reason: Agitation Last Admin: 07/12/20 08:59 Dose: 2 mg Documented by: Metformin HCl (Metformin 500 Mg Tab) 500 mg PO BIDDIAB [facility] Last Admin: 07/16/20 17:06 Dose: 500 mg Documented by: Quetiapine Fumarate (Quetiapine 200 Mg Tab) 300 mg PO BID [facility] Last Admin: 07/16/20 21:27 Dose: 300 mg Documented by: Trazodone HCl (Trazodone 50 Mg Tab) 50 mg PO QHS [facility] Last Admin: 07/16/20 21:28 Dose: 50 mg Documented by: Valproic Acid (Valproic Acid 250 Mg Cap) 500 mg PO BID [facility] Last Admin: 07/16/20 21:28 Dose: 500 mg Documented by: Results - Results Labs/Vitals: Laboratory Last Values Sodium 137 mmol/L (137-145) 07/10/20 20:30 Potassium 4.4 mmol/L (3.6-5.0) 07/10/20 20:30 Chloride 102.6 mmol/L (98-107) 07/10/20 20:30 Carbon Dioxide 24 mmol/L (22-30) 07/10/20 20:30 Anion Gap 15 mmol/L 07/10/20 20:30 BUN 11 mg/dL (7-17) 07/10/20 20:30 Creatinine 0.5 mg/dL (0.6-1.2) L 07/10/20 20:30 Estimated GFR > 60 ml/min 07/10/20 20:30 BUN/Creatinine Ratio 22 % 07/10/20 20:30 Glucose 303 mg/dL (65-100) H 07/10/20 20:30 POC Glucose 194 mg/dL (70-105) H 07/15/20 07:49 Calcium 11.2 mg/dL (8.4-10.2) H 07/10/20 20:30 Total Bilirubin 0.50 mg/dL (0.1-1.2) 07/10/20 20:30 AST 28 units/L (5-40) 07/10/20 20:30 ALT 43 units/L (7-56) 07/10/20 20:30 Alkaline Phosphatase 128 units/L (35-129) 07/10/20 20:30 Total Protein 7.0 g/dL (6.3-8.2) 07/10/20 20:30 Albumin 4.2 g/dL (3.9-5) 07/10/20 20:30 Albumin/Globulin Ratio 1.5 % 07/10/20 20:30 TSH 1.090 mlU/mL (0.270-4.200) 07/10/20 20:30 Valproic Acid < 2.8 ug/mL (50-100) L 07/10/20 20:30 Last Vital Signs Temp 98.3 F 07/16/20 22:00 Pulse 94 H 07/16/20 22:00 Resp 16 07/16/20 22:00 BP 139/90 07/16/20 22:00 Pulse Ox 97 07/16/20 22:00
[2020-07-17] MEDS: metFORMIN 500 MG TAB PO SCH ×2 (09:09→16:48)
[2020-07-17] MEDS: VALPROIC ACID 250 MG CAP PO SCH ×2 (12:00→21:00)
[2020-07-17] MEDS: FLUoxetine 10 MG TAB PO SCH (12:00)
[2020-07-17] MEDS: QUEtiapine 200 MG TAB PO SCH ×2 (12:01→21:00)
[2020-07-17] MEDS: traZODone 50 MG TAB PO SCH (21:00)
[2020-07-18] MEDS: metFORMIN 500 MG TAB PO SCH ×2 (07:56→16:38)
--- NOTE | 2020-07-18 09:03 | Progress Note ---
Subjective Date of service: 07/18/20 Principal diagnosis: 1) Schizophrenia Subjective Comment: Per Psych Nurse:pt spent last evening in activity room interacting with selected peer, alert and orientedx4, calm and cooperative, able to make needs known, talks to self, medication compliant, appetite good, denies si/hi, denies a/v/h, no distress noted, will continue to monitor for safety. Psych Progress HPI Pt states she heard voices earlier through the closed door telling her that the medication shes taking here, can cause her to have a heart attach and now she is scared the doctors and nurses have colluded to kill her hence why has called a few places to let them know she is here. Patient asked if she knows the word paranoid, she says yes. Admits to being paranoid and says sshe has a reason to be because so many have tried to kill her before. Reason for continuing inpatient treatment: Improving manic-like symptoms, will continue to observe for improvement in mental state Review of Symptoms: Constitutional: Negative for weight loss ENT: Negative for stridor Respiratory: Negative for cough or hemoptysis All other systems reviewed and are negative MENTAL STATUS EXAMINATION General Appearance and Behavior: Age appropriate, good hygiene, wearing appropriate clothes, good eye contact, cooperative, irritable Cooperation: Participating/engaged Psychomotor Behavior: unremarkable and within normal limits Mood: " scared" Affect and affective range: congruent with mood Thought Process: logical Thought Content: obsessions, paranoia Speech: Normal volume, Regular rate and rhythm, Intellectual Functioning: Average Suicidal Ideation: Denies SI Homicidal Ideation: Denies HI Impulse Control: Unimpaired Insight and Judgment: limited insight and judgment, Memory: improved short term memory Attention: Normal, Orientation: Alert, oriented. Assessment (1) Schizophrenia Current Visit: Yes Status: Acute Treatment Plan Seroqule 300mg BID Patient admitted for inpatient psychiatric evaluation, medication adjustment and close monitoring The patient's behavior, mood, sleep and appetite will be closely monitored. Patient enrolled in individual and group therapeutic sessions and encouraged to attend. Patient provided with a safe and structured environment. Patient's physical health needs will be addressed by the Hospitalist. Hospitalist Consulted Labs including CBC, CMP, Lipid profile and Hemoglobin A1C levels ordered for baseline reference Social Assessment will be completed and the Candy Cooker Helper will work with patient and family to ensure a suitable and safe disposition Medication adjustment will be made as clinically indicated Usual Wellness Buddhist/Preservation: - Start Trazodone 50 mg po QHS & 50 mg po QHS PRN between 10 PM & 2 AM for insomnia - Start Melatonin 5 mg po QHS to promote circadian rhythm - Start [place]-3 for brain health, reduce impulsivity, and as adjunctive treatment for mood disorder, continue upon discharge given overall benefits. - Start B1 prophylaxis with 200 mg po for 5 days The patient agreed on the treatment plan, understood the risk, benefit, alternative treatment, potential consequence of no treatment, and gave informed consent. Initial Certification Inpatient psych services: I certify that the inpatient psychiatric services are required for treatment that could reasonably be expected to improve the patient's condition. Estimated days: 3 Post hospital care: primary care provider, psychiatric provider Medications and Allergies Allergies Allergy/AdvReac Type Severity Reaction Status Date / Time haloperidol [From Haldol] Allergy Unknown Verified 07/10/20 01:32 Home Medications Medication Instructions Recorded Confirmed Last Taken Type FLUoxetine HCL [Prozac] 10 mg PO DAILY 07/11/20 07/11/20 Unknown History OLANZapine [Zyprexa] 2.5 mg PO DAILY 07/11/20 07/11/20 Unknown History traZODone [Desyrel] 50 mg PO QHS 07/11/20 07/11/20 Unknown History Active Meds: Active Medications Fluoxetine HCl (Fluoxetine 10 Mg Tab) 10 mg PO DAILY [facility] Last Admin: 07/17/20 12:00 Dose: 10 mg Documented by: Lorazepam (Lorazepam 2 Mg/Ml Vial) 2 mg IM Q4HR PRN PRN Reason: Agitation Last Admin: 07/12/20 08:59 Dose: 2 mg Documented by: Metformin HCl (Metformin 500 Mg Tab) 500 mg PO BIDDIAB [facility] Last Admin: 07/17/20 16:48 Dose: 500 mg Documented by: Quetiapine Fumarate (Quetiapine 200 Mg Tab) 300 mg PO BID [facility] Last Admin: 07/17/20 21:00 Dose: 300 mg Documented by: Trazodone HCl (Trazodone 50 Mg Tab) 50 mg PO QHS [facility] Last Admin: 07/17/20 21:00 Dose: 50 mg Documented by: Valproic Acid (Valproic Acid 250 Mg Cap) 500 mg PO BID [facility] Last Admin: 07/17/20 21:00 Dose: 500 mg Documented by: Results - Results Labs/Vitals: Laboratory Last Values Sodium 137 mmol/L (137-145) 07/10/20 20:30 Potassium 4.4 mmol/L (3.6-5.0) 07/10/20 20:30 Chloride 102.6 mmol/L (98-107) 07/10/20 20:30 Carbon Dioxide 24 mmol/L (22-30) 07/10/20 20:30 Anion Gap 15 mmol/L 07/10/20 20:30 BUN 11 mg/dL (7-17) 07/10/20 20:30 Creatinine 0.5 mg/dL (0.6-1.2) L 07/10/20 20:30 Estimated GFR > 60 ml/min 07/10/20 20:30 BUN/Creatinine Ratio 22 % 07/10/20 20:30 Glucose 303 mg/dL (65-100) H 07/10/20 20:30 POC Glucose 194 mg/dL (70-105) H 07/15/20 07:49 Calcium 11.2 mg/dL (8.4-10.2) H 07/10/20 20:30 Total Bilirubin 0.50 mg/dL (0.1-1.2) 07/10/20 20:30 AST 28 units/L (5-40) 07/10/20 20:30 ALT 43 units/L (7-56) 07/10/20 20:30 Alkaline Phosphatase 128 units/L (35-129) 07/10/20 20:30 Total Protein 7.0 g/dL (6.3-8.2) 07/10/20 20:30 Albumin 4.2 g/dL (3.9-5) 07/10/20 20:30 Albumin/Globulin Ratio 1.5 % 07/10/20 20:30 TSH 1.090 mlU/mL (0.270-4.200) 07/10/20 20:30 Valproic Acid < 2.8 ug/mL (50-100) L 07/10/20 20:30 Last Vital Signs Temp 98.6 F 07/17/20 19:42 Pulse 84 07/17/20 19:42 Resp 18 07/17/20 19:42 BP 122/78 07/17/20 19:42 Pulse Ox 93 07/17/20 19:42
[2020-07-18] MEDS: QUEtiapine 200 MG TAB PO SCH ×2 (10:10→21:21)
[2020-07-18] MEDS: FLUoxetine 10 MG TAB PO SCH (10:11)
[2020-07-18] MEDS: VALPROIC ACID 250 MG CAP PO SCH ×2 (10:11→21:22)
[2020-07-18] MEDS: traZODone 50 MG TAB PO SCH (21:21)
--- NOTE | 2020-07-19 09:37 | Progress Note ---
Subjective Date of service: 07/19/20 Principal diagnosis: 1) Schizophrenia Subjective Comment: Per Nurse Note: Last evening the patient was angry and irritable. She told staff that sw found a female peer a place to go but told her she would have to go to a halfway. She got the phone from a peer when she was restricted from phone usage for the evening because she threw it earlier in the day. She took it in her room and told staff "(the same female peer) had it in her room today." Patient is c losely watching the female peer and comparing her care to the peer's care. She is angry and does not want to hear explanations. She denies si/hi/vh. She continues to have ah. She is observed laughing and talking to herself often. Her appetite is good. Patient is medication compliant. The patient was seen today, she is guarded and paranoid. She is also uncooperative. The patient says "I don't feel like talking." Nurse also document patient in hallway stating "I can't stand that bih." Reason for continuing inpatient treatment: Improving manic-like symptoms, will continue to observe for improvement in mental state Review of Symptoms: Constitutional: Negative for weight loss ENT: Negative for stridor Respiratory: Negative for cough or hemoptysis All other systems reviewed and are negative MENTAL STATUS EXAMINATION General Appearance and Behavior: Age appropriate, good hygiene, wearing appropriate clothes, good eye contact, cooperative, irritable Cooperation: Participating/engaged Psychomotor Behavior: unremarkable and within normal limits Mood: " scared" Affect and affective range: congruent with mood Thought Process: logical Thought Content: obsessions, paranoia Speech: Normal volume, Regular rate and rhythm, Intellectual Functioning: Average Suicidal Ideation: Denies SI Homicidal Ideation: Denies HI Impulse Control: Unimpaired Insight and Judgment: limited insight and judgment, Memory: improved short term memory Attention: Normal, Orientation: Alert, oriented. Assessment (1) Schizophrenia Current Visit: Yes Status: Acute Treatment Plan Patient admitted for inpatient psychiatric evaluation, medication adjustment and close monitoring The patient's behavior, mood, sleep and appetite will be closely monitored. Patient enrolled in individual and group therapeutic sessions and encouraged to attend. Patient provided with a safe and structured environment. Patient's physical health needs will be addressed by the Hospitalist. Hospitalist Consulted Labs including CBC, CMP, Lipid profile and Hemoglobin A1C levels ordered for baseline reference Valproic 06/23 Social Assessment will be completed and the Shop Coordinator will work with patient and family to ensure a suitable and safe disposition Medication adjustment will be made as clinically indicated Increased Depakote 500mg po TID Usual Wellness Yazidi/Preservation: - Start Trazodone 50 mg po QHS & 50 mg po QHS PRN between 10 PM & 2 AM for insomnia - Start Melatonin 5 mg po QHS to promote circadian rhythm - Start [place]-3 for brain health, reduce impulsivity, and as adjunctive treatment for mood disorder, continue upon discharge given overall benefits. - Start B1 prophylaxis with 200 mg po for 5 days The patient agreed on the treatment plan, understood the risk, benefit, alternative treatment, potential consequence of no treatment, and gave informed consent. Estimated days: 3 Post hospital care: primary care provider, psychiatric provider Medications and Allergies Allergies Allergy/AdvReac Type Severity Reaction Status Date / Time haloperidol [From Haldol] Allergy Unknown Verified 07/10/20 01:32 Home Medications Medication Instructions Recorded Confirmed Last Taken Type FLUoxetine HCL [Prozac] 10 mg PO DAILY 07/11/20 07/11/20 Unknown History OLANZapine [Zyprexa] 2.5 mg PO DAILY 07/11/20 07/11/20 Unknown History traZODone [Desyrel] 50 mg PO QHS 07/11/20 07/11/20 Unknown History Active Meds: Active Medications Fluoxetine HCl (Fluoxetine 10 Mg Tab) 10 mg PO DAILY [facility] Last Admin: 07/18/20 10:11 Dose: 10 mg Documented by: Lorazepam (Lorazepam 2 Mg/Ml Vial) 2 mg IM Q4HR PRN PRN Reason: Agitation Last Admin: 07/12/20 08:59 Dose: 2 mg Documented by: Metformin HCl (Metformin 500 Mg Tab) 500 mg PO BIDDIAB [facility] Last Admin: 07/18/20 16:38 Dose: 500 mg Documented by: Quetiapine Fumarate (Quetiapine 200 Mg Tab) 300 mg PO BID [facility] Last Admin: 07/18/20 21:21 Dose: 300 mg Documented by: Trazodone HCl (Trazodone 50 Mg Tab) 50 mg PO QHS [facility] Last Admin: 07/18/20 21:21 Dose: 50 mg Documented by: Valproic Acid (Valproic Acid 250 Mg Cap) 500 mg PO BID [facility] Last Admin: 07/18/20 21:22 Dose: 500 mg Documented by: Results - Results Labs/Vitals: Laboratory Last Values Sodium 137 mmol/L (137-145) 07/10/20 20:30 Potassium 4.4 mmol/L (3.6-5.0) 07/10/20 20:30 Chloride 102.6 mmol/L (98-107) 07/10/20 20:30 Carbon Dioxide 24 mmol/L (22-30) 07/10/20 20:30 Anion Gap 15 mmol/L 07/10/20 20:30 BUN 11 mg/dL (7-17) 07/10/20 20:30 Creatinine 0.5 mg/dL (0.6-1.2) L 07/10/20 20:30 Estimated GFR > 60 ml/min 07/10/20 20:30 BUN/Creatinine Ratio 22 % 07/10/20 20:30 Glucose 303 mg/dL (65-100) H 07/10/20 20:30 POC Glucose 194 mg/dL (70-105) H 07/15/20 07:49 Calcium 11.2 mg/dL (8.4-10.2) H 07/10/20 20:30 Total Bilirubin 0.50 mg/dL (0.1-1.2) 07/10/20 20:30 AST 28 units/L (5-40) 07/10/20 20:30 ALT 43 units/L (7-56) 07/10/20 20:30 Alkaline Phosphatase 128 units/L (35-129) 07/10/20 20:30 Total Protein 7.0 g/dL (6.3-8.2) 07/10/20 20:30 Albumin 4.2 g/dL (3.9-5) 07/10/20 20:30 Albumin/Globulin Ratio 1.5 % 07/10/20 20:30 TSH 1.090 mlU/mL (0.270-4.200) 07/10/20 20:30 Valproic Acid < 2.8 ug/mL (50-100) L 07/10/20 20:30 Last Vital Signs Temp 98.5 F 07/19/20 08:07 Pulse 85 07/19/20 08:07 Resp 18 07/19/20 08:07 BP 115/75 07/19/20 08:07 Pulse Ox 93 07/19/20 08:07
[2020-07-19] MEDS: metFORMIN 500 MG TAB PO SCH ×2 (10:03→16:48)
[2020-07-19] MEDS: QUEtiapine 200 MG TAB PO SCH ×2 (10:03→21:31)
[2020-07-19] MEDS: FLUoxetine 10 MG TAB PO SCH (10:03)
[2020-07-19] MEDS: VALPROIC ACID 250 MG CAP PO SCH ×2 (14:06→20:37)
[2020-07-19] MEDS: traZODone 50 MG TAB PO SCH (21:31)
[2020-07-20] MEDS: metFORMIN 500 MG TAB PO SCH ×2 (08:04→16:18)
[2020-07-20] MEDS: VALPROIC ACID 250 MG CAP PO SCH ×3 (08:42→21:23)
[2020-07-20] MEDS: FLUoxetine 10 MG TAB PO SCH (09:08)
[2020-07-20] MEDS: QUEtiapine 200 MG TAB PO SCH ×2 (09:08→21:23)
--- NOTE | 2020-07-20 10:30 | Progress Note ---
Subjective Date of service: 07/20/20 Principal diagnosis: 1) Schizophrenia Subjective Comment: Per Nurse Note: pt has been A&Ox4, labile and irritable. Pt is compliant w/ meds and cooperative w/ staff. Pt spent most of the day in her room away from others. this afternoon, pt has responded less to internal stimuli. Close monitoring continues. The patient was seen today, she appears irritable and was short with her responses. When asking the patient why was she irritable, she says "you inte rrupted me and her talking." She denies SI/HI or hallucinations of any kind. Reason for continuing inpatient treatment: Improving manic-like symptoms, will continue to observe for improvement in mental state Review of Symptoms: Constitutional: Negative for weight loss ENT: Negative for stridor Respiratory: Negative for cough or hemoptysis All other systems reviewed and are negative MENTAL STATUS EXAMINATION General Appearance and Behavior: Age appropriate, good hygiene, wearing appropriate clothes, good eye contact, cooperative, irritable Cooperation: Participating/engaged Psychomotor Behavior: unremarkable and within normal limits Mood: " scared" Affect and affective range: congruent with mood Thought Process: logical Thought Content: obsessions, paranoia Speech: Normal volume, Regular rate and rhythm, Intellectual Functioning: Average Suicidal Ideation: Denies SI Homicidal Ideation: Denies HI Impulse Control: Unimpaired Insight and Judgment: limited insight and judgment, Memory: improved short term memory Attention: Normal, Orientation: Alert, oriented. Assessment (1) Schizophrenia Current Visit: Yes Status: Acute Treatment Plan Patient admitted for inpatient psychiatric evaluation, medication adjustment and close monitoring The patient's behavior, mood, sleep and appetite will be closely monitored. Patient enrolled in individual and group therapeutic sessions and encouraged to attend. Patient provided with a safe and structured environment. Patient's physical health needs will be addressed by the Hospitalist. Hospitalist Consulted Labs including CBC, CMP, Lipid profile and Hemoglobin A1C levels ordered for baseline reference Valproic 06/23 Social Assessment will be completed and the Emergency Generator Mechanic will work with patient and family to ensure a suitable and safe disposition Medication adjustment will be made as clinically indicated Increased Depakote 500mg po TID Yesterday No changes today Usual Wellness Yarsani/Preservation: - Start Trazodone 50 mg po QHS & 50 mg po QHS PRN between 10 PM & 2 AM for insomnia - Start Melatonin 5 mg po QHS to promote circadian rhythm - Start [place]-3 for brain health, reduce impulsivity, and as adjunctive treatment for mood disorder, continue upon discharge given overall benefits. - Start B1 prophylaxis with 200 mg po for 5 days The patient agreed on the treatment plan, understood the risk, benefit, alternative treatment, potential consequence of no treatment, and gave informed consent. Estimated days: 3 Post hospital care: primary care provider, psychiatric provider Medications and Allergies Allergies Allergy/AdvReac Type Severity Reaction Status Date / Time haloperidol [From Haldol] Allergy Unknown Verified 07/10/20 01:32 Home Medications Medication Instructions Recorded Confirmed Last Taken Type FLUoxetine HCL [Prozac] 10 mg PO DAILY 07/11/20 07/11/20 Unknown History OLANZapine [Zyprexa] 2.5 mg PO DAILY 07/11/20 07/11/20 Unknown History traZODone [Desyrel] 50 mg PO QHS 07/11/20 07/11/20 Unknown History Active Meds: Active Medications Fluoxetine HCl (Fluoxetine 10 Mg Tab) 10 mg PO DAILY [facility] Last Admin: 07/20/20 09:08 Dose: 10 mg Documented by: Lorazepam (Lorazepam 2 Mg/Ml Vial) 2 mg IM Q4HR PRN PRN Reason: Agitation Last Admin: 07/12/20 08:59 Dose: 2 mg Documented by: Metformin HCl (Metformin 500 Mg Tab) 500 mg PO BIDDIAB [facility] Last Admin: 07/20/20 08:04 Dose: 500 mg Documented by: Quetiapine Fumarate (Quetiapine 200 Mg Tab) 300 mg PO BID [facility] Last Admin: 07/20/20 09:08 Dose: 300 mg Documented by: Trazodone HCl (Trazodone 50 Mg Tab) 50 mg PO QHS [facility] Last Admin: 07/19/20 21:31 Dose: 50 mg Documented by: Valproic Acid (Valproic Acid 250 Mg Cap) 500 mg PO TID [facility] Last Admin: 07/20/20 08:42 Dose: 500 mg Documented by: Results - Results Labs/Vitals: Laboratory Last Values Sodium 137 mmol/L (137-145) 07/10/20 20:30 Potassium 4.4 mmol/L (3.6-5.0) 07/10/20 20:30 Chloride 102.6 mmol/L (98-107) 07/10/20 20:30 Carbon Dioxide 24 mmol/L (22-30) 07/10/20 20:30 Anion Gap 15 mmol/L 07/10/20 20:30 BUN 11 mg/dL (7-17) 07/10/20 20:30 Creatinine 0.5 mg/dL (0.6-1.2) L 07/10/20 20:30 Estimated GFR > 60 ml/min 07/10/20 20:30 BUN/Creatinine Ratio 22 % 07/10/20 20:30 Glucose 303 mg/dL (65-100) H 07/10/20 20:30 POC Glucose 194 mg/dL (70-105) H 07/15/20 07:49 Calcium 11.2 mg/dL (8.4-10.2) H 07/10/20 20:30 Total Bilirubin 0.50 mg/dL (0.1-1.2) 07/10/20 20:30 AST 28 units/L (5-40) 07/10/20 20:30 ALT 43 units/L (7-56) 07/10/20 20:30 Alkaline Phosphatase 128 units/L (35-129) 07/10/20 20:30 Total Protein 7.0 g/dL (6.3-8.2) 07/10/20 20:30 Albumin 4.2 g/dL (3.9-5) 07/10/20 20:30 Albumin/Globulin Ratio 1.5 % 07/10/20 20:30 TSH 1.090 mlU/mL (0.270-4.200) 07/10/20 20:30 Valproic Acid < 2.8 ug/mL (50-100) L 07/10/20 20:30 Last Vital Signs Temp 98.6 F 07/19/20 19:37 Pulse 88 07/19/20 19:37 Resp 18 07/19/20 19:37 BP 123/76 07/19/20 19:37 Pulse Ox 97 07/19/20 19:37
[2020-07-20] MEDS: traZODone 50 MG TAB PO SCH (21:24)
[2020-07-21] MEDS: VALPROIC ACID 250 MG CAP PO SCH ×3 (07:42→21:00)
[2020-07-21] MEDS: metFORMIN 500 MG TAB PO SCH ×2 (07:43→16:53)
[2020-07-21] MEDS: FLUoxetine 10 MG TAB PO SCH (09:20)
[2020-07-21] MEDS: QUEtiapine 200 MG TAB PO SCH ×2 (09:20→21:20)
--- NOTE | 2020-07-21 10:08 | Progress Note ---
Subjective Date of service: 07/21/20 Principal diagnosis: 1) Schizophrenia Subjective Comment: Per Nurse Note: Last evening the patient presented as calm. Her interactions were appropriate. She is still focused on a female peer that discharged a few days ago. She has the delusion that the person was given her home that she was going to get at discharge. She denies si/hi/ah/vh. She was not observed talking to herself last evening. Her appetite is good. She was medication compliant. Overnight the patient rested quietly. She presents as sleeping 8 hours. Will continue to monitor patient for safety. The patient is seen today, she is in bed. She says she feels good but is tired. The patient denies hallucinations or SI. But it was documented by the nurse that the patient has been delusional. Reason for continuing inpatient treatment: Improving manic-like symptoms, will continue to observe for improvement in mental state Review of Symptoms: Constitutional: Negative for weight loss ENT: Negative for stridor Respiratory: Negative for cough or hemoptysis All other systems reviewed and are negative MENTAL STATUS EXAMINATION General Appearance and Behavior: Age appropriate, good hygiene, wearing appropr iate clothes, good eye contact, cooperative, irritable Cooperation: Participating/engaged Psychomotor Behavior: unremarkable and within normal limits Mood: " scared" Affect and affective range: congruent with mood Thought Process: logical Thought Content: obsessions, paranoia Speech: Normal volume, Regular rate and rhythm, Intellectual Functioning: Average Suicidal Ideation: Denies SI Homicidal Ideation: Denies HI Impulse Control: Unimpaired Insight and Judgment: limited insight and judgment, Memory: improved short term memory Attention: Normal, Orientation: Alert, oriented. Assessment (1) Schizophrenia Current Visit: Yes Status: Acute Treatment Plan Patient admitted for inpatient psychiatric evaluation, medication adjustment and close monitoring The patient's behavior, mood, sleep and appetite will be closely monitored. Patient enrolled in individual and group therapeutic sessions and encouraged to attend. Patient provided with a safe and structured environment. Patient's physical health needs will be addressed by the Hospitalist. Hospitalist Consulted Labs including CBC, CMP, Lipid profile and Hemoglobin A1C levels ordered for baseline reference Valproic 06/23 Social Assessment will be completed and the Foundation Director will work with patient and family to ensure a suitable and safe disposition Medication adjustment will be made as clinically indicated No changes today Usual Wellness [employer]/Preservation: - Start Trazodone 50 mg po QHS & 50 mg po QHS PRN between 10 PM & 2 AM for insomnia - Start Melatonin 5 mg po QHS to promote circadian rhythm - Start [place]-3 for brain health, reduce impulsivity, and as adjunctive treatment for mood disorder, continue upon discharge given overall benefits. - Start B1 prophylaxis with 200 mg po for 5 days The patient agreed on the treatment plan, understood the risk, benefit, alternative treatment, potential consequence of no treatment, and gave informed consent. Estimated days: 3 Post hospital care: primary care provider, psychiatric provider Medications and Allergies Allergies Allergy/AdvReac Type Severity Reaction Status Date / Time haloperidol [From Haldol] Allergy Unknown Verified 07/10/20 01:32 Home Medications Medication Instructions Recorded Confirmed Last Taken Type FLUoxetine HCL [Prozac] 10 mg PO DAILY 07/11/20 07/11/20 Unknown History OLANZapine [Zyprexa] 2.5 mg PO DAILY 07/11/20 07/11/20 Unknown History traZODone [Desyrel] 50 mg PO QHS 07/11/20 07/11/20 Unknown History Active Meds: Active Medications Fluoxetine HCl (Fluoxetine 10 Mg Tab) 10 mg PO DAILY [facility] Last Admin: 07/21/20 09:20 Dose: 10 mg Documented by: Lorazepam (Lorazepam 2 Mg/Ml Vial) 2 mg IM Q4HR PRN PRN Reason: Agitation Last Admin: 07/12/20 08:59 Dose: 2 mg Documented by: Metformin HCl (Metformin 500 Mg Tab) 500 mg PO BIDDIAB [facility] Last Admin: 07/21/20 07:43 Dose: 500 mg Documented by: Quetiapine Fumarate (Quetiapine 200 Mg Tab) 300 mg PO BID [facility] Last Admin: 07/21/20 09:20 Dose: 300 mg Documented by: Trazodone HCl (Trazodone 50 Mg Tab) 50 mg PO QHS [facility] Last Admin: 07/20/20 21:24 Dose: 50 mg Documented by: Valproic Acid (Valproic Acid 250 Mg Cap) 500 mg PO TID [facility] Last Admin: 07/21/20 07:42 Dose: 500 mg Documented by: Results - Results Labs/Vitals: Laboratory Last Values Sodium 137 mmol/L (137-145) 07/10/20 20:30 Potassium 4.4 mmol/L (3.6-5.0) 07/10/20 20:30 Chloride 102.6 mmol/L (98-107) 07/10/20 20:30 Carbon Dioxide 24 mmol/L (22-30) 07/10/20 20:30 Anion Gap 15 mmol/L 07/10/20 20:30 BUN 11 mg/dL (7-17) 07/10/20 20:30 Creatinine 0.5 mg/dL (0.6-1.2) L 07/10/20 20:30 Estimated GFR > 60 ml/min 07/10/20 20:30 BUN/Creatinine Ratio 22 % 07/10/20 20:30 Glucose 303 mg/dL (65-100) H 07/10/20 20:30 POC Glucose 194 mg/dL (70-105) H 07/15/20 07:49 Calcium 11.2 mg/dL (8.4-10.2) H 07/10/20 20:30 Total Bilirubin 0.50 mg/dL (0.1-1.2) 07/10/20 20:30 AST 28 units/L (5-40) 07/10/20 20:30 ALT 43 units/L (7-56) 07/10/20 20:30 Alkaline Phosphatase 128 units/L (35-129) 07/10/20 20:30 Total Protein 7.0 g/dL (6.3-8.2) 07/10/20 20:30 Albumin 4.2 g/dL (3.9-5) 07/10/20 20:30 Albumin/Globulin Ratio 1.5 % 07/10/20 20:30 TSH 1.090 mlU/mL (0.270-4.200) 07/10/20 20:30 Valproic Acid < 2.8 ug/mL (50-100) L 07/10/20 20:30 Last Vital Signs Temp 97.8 F 07/20/20 20:05 Pulse 87 07/20/20 09:15 Resp 17 07/20/20 20:05 BP 150/89 07/20/20 20:05 Pulse Ox 96 07/20/20 09:15
[2020-07-21] MEDS: traZODone 50 MG TAB PO SCH (21:20)
[2020-07-22] MEDS: FLUoxetine 10 MG TAB PO SCH (09:15)
[2020-07-22] MEDS: QUEtiapine 200 MG TAB PO SCH (09:15)
[2020-07-22] MEDS: metFORMIN 500 MG TAB PO SCH (09:15)
[2020-07-22] MEDS: VALPROIC ACID 250 MG CAP PO SCH ×2 (09:15→14:10)
--- NOTE | 2020-07-22 09:37 | Discharge Summary ---
Providers - Providers Date of Admission: 07/10/20 20:12 Date of discharge: 07/22/20 Attending physician: JOE RAJPUT MD 07/10/20 19:09 Consult to Physician [CONS] Routine Comment: admitted to psych-need medical consult Consulting Provider: ISHA MCCARTY Physician Instructions: Reason For Exam: h&p Primary care physician: PEA VINER MECHANIC Hospitalization Reason for admission: psychosis Admitting Diagnosis: F20.9 - SCHIZOPHRENIA, UNSPECIFIED Condition: Stable Disposition: DC- TO HOME OR SELFCARE Time spent for discharge: 38 Allergies/Adverse Reactions: Allergies haloperidol [From Haldol] Allergy (Verified 07/10/20 01:32) Unknown Vital Signs: Last Vital Signs Temp 98.0 F 07/21/20 19:28 Pulse 88 07/21/20 19:28 Resp 18 07/21/20 19:28 BP 126/87 07/21/20 19:28 Pulse Ox 96 07/21/20 19:28 Last Lab: Laboratory Last Values Sodium 137 mmol/L (137-145) 07/10/20 20:30 Potassium 4.4 mmol/L (3.6-5.0) 07/10/20 20:30 Chloride 102.6 mmol/L (98-107) 07/10/20 20:30 Carbon Dioxide 24 mmol/L (22-30) 07/10/20 20:30 Anion Gap 15 mmol/L 07/10/20 20:30 BUN 11 mg/dL (7-17) 07/10/20 20:30 Creatinine 0.5 mg/dL (0.6-1.2) L 07/10/20 20:30 Estimated GFR > 60 ml/min 07/10/20 20:30 BUN/Creatinine Ratio 22 % 07/10/20 20:30 Glucose 303 mg/dL (65-100) H 07/10/20 20:30 POC Glucose 194 mg/dL (70-105) H 07/15/20 07:49 Calcium 11.2 mg/dL (8.4-10.2) H 07/10/20 20:30 Total Bilirubin 0.50 mg/dL (0.1-1.2) 07/10/20 20:30 AST 28 units/L (5-40) 07/10/20 20:30 ALT 43 units/L (7-56) 07/10/20 20:30 Alkaline Phosphatase 128 units/L (35-129) 07/10/20 20:30 Total Protein 7.0 g/dL (6.3-8.2) 07/10/20 20:30 Albumin 4.2 g/dL (3.9-5) 07/10/20 20:30 Albumin/Globulin Ratio 1.5 % 07/10/20 20:30 TSH 1.090 mlU/mL (0.270-4.200) 07/10/20 20:30 Valproic Acid 104.5 ug/mL (50-100) H 07/22/20 07:52 Core Measure Documentation - Palliative Care Palliative Care/ Comfort Measures: Not Applicable - Core Measures Any of the following diagnoses?: none Exam - Constitutional Vitals: Temp Pulse Resp BP Pulse Ox 98.0 F 88 18 126/87 96 07/21/20 19:28 07/21/20 19:28 07/21/20 19:28 07/21/20 19:28 07/21/20 19:28 General appearance: Present: no acute distress - EENT Eyes: Present: EOM intact ENT: hearing intact, clear oral mucosa - Neck Neck: Present: supple, normal ROM - Respiratory Respiratory effort: normal Plan Activity: advance as tolerated Weight Bearing Status: Weight Bear as Tolerated Care Plan Goals: maintain good and stable mental health Plan of Treatment: The patient should be compliant with medications, not to use drugs, and not to drink alcohol. The patient understands that if suicidal ideas, homicidal ideas or any endangering feeling arise, the patient should seek assistance including, but not limited to crisis hotline, and emergency room. Assessment: Schizophrenia Follow up with: PRIMARY CARE, [Primary Care Provider] - 7 Days Prescriptions: traZODone [Desyrel] 50 mg PO QHS #30 Valproic Acid [Depakene] 500 mg PO TID #120 capsule metFORMIN [Glucophage] 500 mg PO BIDDIAB #60 tablet FLUoxetine HCL [Prozac] 10 mg PO DAILY #30 cap QUEtiapine [SEROquel] 300 mg PO BID #90 tablet
[2020-07-22 11:05] VITALS: BP 111/66
== END 2020-07-22 14:25 | disposition home or self-care (01) | DRG 885 ==
LOC: 3A 17:03 → UNDOADMIN 17:03 → 5A 20:12
PROVIDERS: ADMIT Psychiatry & Neurology Psychiatry; ATTEND Psychiatry & Neurology Psychiatry
DX: F20.9 Schizophrenia, unspecified (principal); F41.9 Anxiety disorder, unspecified; F32.9 Major depressive disorder, single episode, unspecified; I10 Essential (primary) hypertension; E11.9 Type 2 diabetes mellitus without complications; Z88.8 Allergy status to other drugs, medicaments and biological substances; Z79.899 Other long term (current) drug therapy; Z82.49 Family history of ischemic heart disease and other diseases of the circulatory system; Z83.3 Family history of diabetes mellitus; Z68.30 Body mass index [BMI] 30.0-30.9, adult
CPT/HCPCS: 36415; 80048; 80053; 80164; 80307; 80320; 81001; 82962; 84443; 84703; 85025; 87086; G0378; G0480; J2060; J3486; U0003

== ENCOUNTER 2020-08-31 11:11 | Emergency (ER) | payer MEDICARE ==
[2020-08-31 12:25] LABS: Eosinophils % (Auto) 1.1 % (0.0-4.3); Hematocrit 41.7 % (30.3-42.9); Hemoglobin 13.9 gm/dl (10.1-14.3); Lymphocytes # (Auto) 1.8 K/mm3 (1.2-5.4); Lymphocytes % (Auto) 45.8 % (13.4-35.0); Mean Corpuscular HGB Conc 33 % (30-34); Mean Corpuscular Volume 84 fl (79-97); Monocytes # (Auto) 0.2 K/mm3 (0.0-0.8); Monocytes % (Auto) 5.8 % (0.0-7.3); Platelet Count 196 K/mm3 (140-440); Red Blood Count 4.97 M/mm3 (3.65-5.03); Red Cell Distribution Width 13.5 % (13.2-15.2)
[2020-08-31 12:46] LABS: Blood Urea Nitrogen 7 mg/dL (7-17); Calcium 11.9 mg/dL (8.4-10.2); Hemolysis Index 5
[2020-08-31] MEDS ORDERED: ZIPRASIDONE MESYLATE 20 MG VIAL IM ONE (12:46)
[2020-08-31 12:47] LABS: BUN/Creatinine Ratio 12
--- NOTE | 2020-08-31 13:09 | Emergency Department Report ---
HPI - General Chief Complaint: Psych Time Seen by Provider: 08/31/20 12:41 - HPI HPI: 50-year-old female with history of bipolar disorder and schizoaffective disorder as well as diet-controlled diabetes and hypertension presents saying that she does not want to be in her [facility] anymore. She became very agitated and aggressive in triage and I was called to assess her. The patient has pressured speech. She is circumferential and tangential. She says " they are all out to get me". When asked who is they, she says "everyone." She then launched into a tirade about various individuals who are unrelated, saying that they are all out to get her and all against her and that nobody cares about her. She is unable to be reoriented and became extremely agitated and aggressive towards staff. To me, she says she had some pain in her left hand which is very minor but otherwise had no physical complaints. She denied suicidal ideation or homicidal ideation and denied auditory or visual hallucinations. ED Past Medical Hx - Past Medical History Previous Medical History?: Yes Hx Hypertension: Yes Hx Congestive Heart Failure: No Hx Diabetes: Yes Hx Renal Disease: No Hx Arthritis: No Hx Seizures: No Hx Psychiatric Treatment: Yes (depression, anxiety) Hx Asthma: No Hx COPD: No Hx Dementia: No - Surgical History Past Surgical History?: Yes Hx Cholecystectomy: No Hx Appendectomy: No Additional Surgical History: "I don't remember", pt stated - Social History Smoking Status: Never Smoker Substance Use Type: Alcohol, Prescribed - Medications Home Medications: Home Medications Medication Instructions Recorded Confirmed Last Taken Type FLUoxetine HCL [Prozac] 10 mg PO DAILY #30 cap 07/22/20 09/02/20 Unknown Rx QUEtiapine [SEROquel] 300 mg PO BID #90 tablet 07/22/20 09/02/20 Unknown Rx Valproic Acid [Depakene] 500 mg PO TID #120 capsule 07/22/20 09/02/20 Unknown Rx metFORMIN [Glucophage] 500 mg PO BIDDIAB #60 tablet 07/22/20 09/02/20 Unknown Rx traZODone [Desyrel] 50 mg PO QHS #30 07/22/20 09/02/20 Unknown Rx ED Review of Systems ROS: Stated complaint: PTSD/WRIST HURTING FOR 2 DAYS Other details as noted in HPI Constitutional: denies: chills, fever Eyes: denies: eye pain, vision change ENT: denies: throat pain, congestion Respiratory: denies: cough, shortness of breath Cardiovascular: denies: chest pain, palpitations Gastrointestinal: denies: abdominal pain, nausea, vomiting Musculoskeletal: other (left hand pain). denies: back pain, joint swelling Skin: denies: rash Neurological: denies: headache, weakness, numbness Psychiatric: denies: auditory hallucinations, visual hallucinations, homicidal thoughts, suicidal thoughts Physical Exam - Physical Exam Vital Signs: Vital Signs 08/31/20 13:01 Respiratory 20 Rate Physical Exam: GENERAL: Well developed and well nourished. Extremely agitated. Pressured speech which is circumferential and tangential. Overt paranoia HEENT: Normocephalic. No obvious signs of trauma. Moist mucous membranes. EYES: Extraocular movements are intact. Pupils are equal round and reactive to light bilaterally NECK: Supple. Trachea is midline. LUNGS: Nonlabored breathing. Equal chest rise bilaterally. Clear to auscultation bilaterally. HEART/CARDIOVASCULAR: Regular rate and rhythm. No murmurs or rubs. VASCULAR: 2+ peripheral pulses. Cap refill < 2 seconds ABDOMEN: Abdomen is soft and nondistended. There is no significant tenderness, g uarding or rebound. SKIN: Skin is warm and dry NEURO: Patient is awake, alert, and oriented. medical device II-XII grossly intact. No focal deficits. Normal motor and sensory exam throughout. Normal speech. Normal gait. MUSCULOSKELETAL: No obvious deformities. No significant tenderness. Normal ROM throughout, including both wrists, hands, and fingers ED Course Vital Signs 08/31/20 13:01 Respiratory 20 Rate ED Medical Decision Making - Lab Data Result diagrams: 08/31/20 12:00 08/31/20 12:00 Lab Results 08/31/20 08/31/20 08/31/20 Range/Units 12:00 12:00 12:00 WBC (4.5-11.0) K/mm3 RBC (3.65-5.03) M/mm3 Hgb (10.1-14.3) gm/dl Hct (30.3-42.9) % MCV (79-97) fl MCH (28-32) pg MCHC (30-34) % RDW (13.2-15.2) % Plt Count (140-440) K/mm3 Lymph % (Auto) (13.4-35.0) % Ness % (Auto) (0.0-7.3) % Eos % (Auto) (0.0-4.3) % Baso % (Auto) (0.0-1.8) % Lymph # (Auto) (1.2-5.4) K/mm3 Ness # (Auto) (0.0-0.8) K/mm3 Eos # (Auto) (0.0-0.4) K/mm3 Baso # (Auto) (0.0-0.1) K/mm3 Seg Neutrophils % (40.0-70.0) % Seg Neutrophils # (1.8-7.7) K/mm3 Sodium 141 (137-145) mmol/L Potassium 4.1 (3.6-5.0) mmol/L Chloride 105.0 (98-107) mmol/L Carbon Dioxide 26 (22-30) mmol/L Anion Gap 14 mmol/L BUN 7 (7-17) mg/dL Creatinine 0.6 (0.6-1.2) mg/dL Estimated GFR > 60 ml/min BUN/Creatinine Ratio 12 % Glucose 284 H (65-100) mg/dL POC Glucose (70-105) mg/dL Calcium 11.9 H (8.4-10.2) mg/dL HCG, Qual (Negative) Urine Color (Yellow) Urine Turbidity (Clear) Urine pH (5.0-7.0) Ur Specific [place] (1.003-1.030) Urine Protein (Negative) mg/dL Urine Glucose (UA) (Negative) mg/dL Urine Ketones (Negative) mg/dL Urine Blood (Negative) Urine Nitrite (Negative) Urine Bilirubin (Negative) Urine Urobilinogen (<2.0) mg/dL Ur Leukocyte Esterase (Negative) Urine WBC (Auto) (0.0-6.0) /HPF Urine RBC (Auto) (0.0-6.0) /HPF U Epithel Cells (Auto) (0-13.0) /HPF Urine Bacteria (Auto) (Negative) /HPF Urine Mucus /HPF Salicylates < 0.3 L (2.8-20.0) mg/dL Urine Opiates Screen Urine Methadone Screen Acetaminophen 5.0 L (10.0-30.0) ug/mL Ur Barbiturates Screen Ur Phencyclidine Scrn Ur Amphetamines Screen U Benzodiazepines Scrn Urine Cocaine Screen U Marijuana (THC) Screen Drugs of Abuse Note Plasma/Serum Alcohol (0-0.07) % Coronavirus (PCR) (Negative) 08/31/20 08/31/20 08/31/20 Range/Units 12:00 12:00 12:00 WBC 4.0 L (4.5-11.0) K/mm3 RBC 4.97 (3.65-5.03) M/mm3 Hgb 13.9 (10.1-14.3) gm/dl Hct 41.7 (30.3-42.9) % MCV 84 (79-97) fl MCH 28 (28-32) pg MCHC 33 (30-34) % RDW 13.5 (13.2-15.2) % Plt Count 196 (140-440) K/mm3 Lymph % (Auto) 45.8 H (13.4-35.0) % Ness % (Auto) 5.8 (0.0-7.3) % Eos % (Auto) 1.1 (0.0-4.3) % Baso % (Auto) 1.0 (0.0-1.8) % Lymph # (Auto) 1.8 (1.2-5.4) K/mm3 Ness # (Auto) 0.2 (0.0-0.8) K/mm3 Eos # (Auto) 0.0 (0.0-0.4) K/mm3 Baso # (Auto) 0.0 (0.0-0.1) K/mm3 Seg Neutrophils % 46.3 (40.0-70.0) % Seg Neutrophils # 1.9 (1.8-7.7) K/mm3 Sodium (137-145) mmol/L Potassium (3.6-5.0) mmol/L Chloride (98-107) mmol/L Carbon Dioxide (22-30) mmol/L Anion Gap mmol/L BUN (7-17) mg/dL Creatinine (0.6-1.2) mg/dL Estimated GFR ml/min BUN/Creatinine Ratio % Glucose (65-100) mg/dL POC Glucose (70-105) mg/dL Calcium (8.4-10.2) mg/dL HCG, Qual Negative (Negative) Urine Color (Yellow) Urine Turbidity (Clear) Urine pH (5.0-7.0) Ur Specific [place] (1.003-1.030) Urine Protein (Negative) mg/dL Urine Glucose (UA) (Negative) mg/dL Urine Ketones (Negative) mg/dL Urine Blood (Negative) Urine Nitrite (Negative) Urine Bilirubin (Negative) Urine Urobilinogen (<2.0) mg/dL Ur Leukocyte Esterase (Negative) Urine WBC (Auto) (0.0-6.0) /HPF Urine RBC (Auto) (0.0-6.0) /HPF U Epithel Cells (Auto) (0-13.0) /HPF Urine Bacteria (Auto) (Negative) /HPF Urine Mucus /HPF Salicylates (2.8-20.0) mg/dL Urine Opiates Screen Urine Methadone Screen Acetaminophen (10.0-30.0) ug/mL Ur Barbiturates Screen Ur Phencyclidine Scrn Ur Amphetamines Screen U Benzodiazepines Scrn Urine Cocaine Screen U Marijuana (THC) Screen Drugs of Abuse Note Plasma/Serum Alcohol < 0.01 (0-0.07) % Coronavirus (PCR) (Negative) 08/31/20 09/01/20 09/01/20 Range/Units 15:54 07:51 09:00 WBC (4.5-11.0) K/mm3 RBC (3.65-5.03) M/mm3 Hgb (10.1-14.3) gm/dl Hct (30.3-42.9) % MCV (79-97) fl MCH (28-32) pg MCHC (30-34) % RDW (13.2-15.2) % Plt Count (140-440) K/mm3 Lymph % (Auto) (13.4-35.0) % Ness % (Auto) (0.0-7.3) % Eos % (Auto) (0.0-4.3) % Baso % (Auto) (0.0-1.8) % Lymph # (Auto) (1.2-5.4) K/mm3 Ness # (Auto) (0.0-0.8) K/mm3 Eos # (Auto) (0.0-0.4) K/mm3 Baso # (Auto) (0.0-0.1) K/mm3 Seg Neutrophils % (40.0-70.0) % Seg Neutrophils # (1.8-7.7) K/mm3 Sodium (137-145) mmol/L Potassium (3.6-5.0) mmol/L Chloride (98-107) mmol/L Carbon Dioxide (22-30) mmol/L Anion Gap mmol/L BUN (7-17) mg/dL Creatinine (0.6-1.2) mg/dL Estimated GFR ml/min BUN/Creatinine Ratio % Glucose (65-100) mg/dL POC Glucose 295 H 197 H (70-105) mg/dL Calcium (8.4-10.2) mg/dL HCG, Qual (Negative) Urine Color (Yellow) Urine Turbidity (Clear) Urine pH (5.0-7.0) Ur Specific [place] (1.003-1.030) Urine Protein (Negative) mg/dL Urine Glucose (UA) (Negative) mg/dL Urine Ketones (Negative) mg/dL Urine Blood (Negative) Urine Nitrite (Negative) Urine Bilirubin (Negative) Urine Urobilinogen (<2.0) mg/dL Ur Leukocyte Esterase (Negative) Urine WBC (Auto) (0.0-6.0) /HPF Urine RBC (Auto) (0.0-6.0) /HPF U Epithel Cells (Auto) (0-13.0) /HPF Urine Bacteria (Auto) (Negative) /HPF Urine Mucus /HPF Salicylates (2.8-20.0) mg/dL Urine Opiates Screen Urine Methadone Screen Acetaminophen (10.0-30.0) ug/mL Ur Barbiturates Screen Ur Phencyclidine Scrn Ur Amphetamines Screen U Benzodiazepines Scrn Urine Cocaine Screen U Marijuana (THC) Screen Drugs of Abuse Note Plasma/Serum Alcohol (0-0.07) % Coronavirus (PCR) Negative (Negative) 09/01/20 09/01/20 09/01/20 Range/Units 16:12 18:30 18:30 WBC (4.5-11.0) K/mm3 RBC (3.65-5.03) M/mm3 Hgb (10.1-14.3) gm/dl Hct (30.3-42.9) % MCV (79-97) fl MCH (28-32) pg MCHC (30-34) % RDW (13.2-15.2) % Plt Count (140-440) K/mm3 Lymph % (Auto) (13.4-35.0) % Ness % (Auto) (0.0-7.3) % Eos % (Auto) (0.0-4.3) % Baso % (Auto) (0.0-1.8) % Lymph # (Auto) (1.2-5.4) K/mm3 Ness # (Auto) (0.0-0.8) K/mm3 Eos # (Auto) (0.0-0.4) K/mm3 Baso # (Auto) (0.0-0.1) K/mm3 Seg Neutrophils % (40.0-70.0) % Seg Neutrophils # (1.8-7.7) K/mm3 Sodium (137-145) mmol/L Potassium (3.6-5.0) mmol/L Chloride (98-107) mmol/L Carbon Dioxide (22-30) mmol/L Anion Gap mmol/L BUN (7-17) mg/dL Creatinine (0.6-1.2) mg/dL Estimated GFR ml/min BUN/Creatinine Ratio % Glucose (65-100) mg/dL POC Glucose 173 H (70-105) mg/dL Calcium (8.4-10.2) mg/dL HCG, Qual (Negative) Urine Color Yellow (Yellow) Urine Turbidity Slightly-cloudy (Clear) Urine pH 5.0 (5.0-7.0) Ur Specific [place] 1.020 (1.003-1.030) Urine Protein <15 mg/dl (Negative) mg/dL Urine Glucose (UA) >=500 (Negative) mg/dL Urine Ketones Neg (Negative) mg/dL Urine Blood Neg (Negative) Urine Nitrite Neg (Negative) Urine Bilirubin Neg (Negative) Urine Urobilinogen 2.0 (<2.0) mg/dL Ur Leukocyte Esterase Lg (Negative) Urine WBC (Auto) 13.0 H (0.0-6.0) /HPF Urine RBC (Auto) 3.0 (0.0-6.0) /HPF U Epithel Cells (Auto) 5.0 (0-13.0) /HPF Urine Bacteria (Auto) 3+ (Negative) /HPF Urine Mucus Few /HPF Salicylates (2.8-20.0) mg/dL Urine Opiates Screen Negative Urine Methadone Screen Negative Acetaminophen (10.0-30.0) ug/mL Ur Barbiturates Screen Negative Ur Phencyclidine Scrn Negative Ur Amphetamines Screen Negative U Benzodiazepines Scrn Positive Urine Cocaine Screen Negative U Marijuana (THC) Screen Negative Drugs of Abuse Note Disclamer Plasma/Serum Alcohol (0-0.07) % Coronavirus (PCR) (Negative) - Medical Decision Making 50-year-old female with history of bipolar disorder and schizophrenia presenting in triage saying she wants to get out of her [facility]. Upon further assessm ent, patient was found to be with pressured speech, agitation, tangential/circumferential speech, and overt paranoia most consistent with acute libia/psychosis. She reported some left hand pain but was found to have full painless range of motion and no tenderness along with normal strength and normal sensation throughout all dermatomes. Given her level of agitation and aggression coupled with paranoia, she is acutely psychotic and a danger to herself and others. Therefore 1013 order was initiated and signed. Will send full medical clearance labs. 20 mg of IM Geodon were ordered. Labs have resulted and reveal no significant abnormalities with the exception of elevated glucose of 284. She does have very mild leukopenia with a white blood cell count of 4.0. 1 L of normal saline was ordered. In addition, we will restart Metformin 500 mg daily and start the patient on sliding scale insulin. She is medically cleared for further psychiatric evaluation and placement. Critical care attestation.: If time is entered above; I have spent that time in minutes in the direct care of this critically ill patient, excluding procedure time. ED Disposition Clinical Impression: Libia, Acute psychosis Disposition: DC/TX-[id number] PSY HOSP/PSY UNIT Is pt being admited?: No Condition: Stable Referrals: PRIMARY CARE, [Primary Care Provider] - 3-5 Days
[2020-08-31] MEDS ORDERED: SODIUM CHLORIDE 0.9% 1000 ML 1,000 ML IV ONE (13:17)
[2020-08-31] MEDS ORDERED: DEXTROSE 50% IN WATER (25GM) 50 ML SYRINGE IV PRN (13:20)
[2020-08-31] MEDS: metFORMIN 500 MG TAB PO SCH (16:06)
[2020-08-31] MEDS: INSULIN REGULAR, HUMAN 100 UNITS/1 ML SUB-Q SCH (16:06)
[2020-08-31] MEDS ORDERED: INSULIN REGULAR, HUMAN 100 UNITS/1 ML SUB-Q SCH (22:00)
[2020-09-01] MEDS: INSULIN REGULAR, HUMAN 100 UNITS/1 ML SUB-Q SCH ×4 (06:09→17:31)
[2020-09-01] MEDS ORDERED: ALPRAZolam 1 MG TAB PO ONE (08:28)
[2020-09-01] MEDS: metFORMIN 500 MG TAB PO SCH (09:53)
--- NOTE | 2020-09-01 10:35 | Consultation ---
History of Present Illness - Reason for Consult Consult date: 09/01/20 Reason for consult: psychosis - History of Present Psychiatric Illness Per ED Note: 50-year-old female with history of bipolar disorder and schizoaffective disorder as well as diet-controlled diabetes and hypertension presents saying that she does not want to be in her care home anymore. She became very agitated and aggressive in triage and I was called to assess her. The patient has pressured speech. She is circumferential and tangential. She says " they are all out to get me". When asked who is they, she says "everyone." She then launched into a tirade about various individuals who are unrelated, saying that they are all out to get her and all against her and that nobody cares about her. She is unable to be reoriented and became extremely agitated and aggressive towards staff. To me, she says she had some pain in her left hand which is very minor but otherwise had no physical complaints. She denied suicidal ideation or homicidal ideation and denied auditory or visual hallucinations. Carissa Cope is a 50y/o female patient I evaluated today who presented with aggression and agitation. The patient was also paranoid and delusional. During my evaluation with the patient she is sitting facing the wall and talking out loud to people who aren't there. She is also irritable and paranoid. When I walked up to her she says, "Glory be to God." I asked the patient her name, she replied "I just told you." She refused to cooperate. She says "you might be a coconspirator." When asking the patient did she remember why she came to the ER, she replies "I told you my testimony with my health. I don't think that's funny or any mental health is funny." She then says "ask the nurse. I haven't done anything." PAST PSYCHIATRIC HISTORY Diagnoses: depression, schizophrenia Suicide attempts or Self-harm behavior: None reported Prior psychiatric hospitalizations: yes Substance Abuse history: denies Previous psychiatric medications tried: could not recall Outpatient treatment: Yes PAST MEDICAL HISTORY: None reported Family Psychiatric History: None reported or documented SOCIAL HISTORY Marital Status: Single Living Arrangements: care home Employment Status: Disabled Access to guns/weapons: None reported Education: History of Abuse: None reported Legal History: None reported REVIEW OF SYSTEMS Constitutional: Negative for weight loss ENT: Negative for stridor Respiratory: Negative for cough or hemoptysis All other systems reviewed and are negative MENTAL STATUS EXAMINATION General Appearance and Behavior: Age appropriate, good hygiene, wearing appropriate clothes, poor eye contact, irritable Cooperation: uncooperative, guarded Mood: Affect and affective range: congruent with mood Thought Process: illogical, disorganized Thought Content: hallucinations Speech: normal tone and pace Suicidal Ideation: Denies SI Homicidal Ideation: Denies Hallucinations: Auditory Delusions: Yes Impulse Control: Impaired Insight and Judgment: Poor insight and judgment, Memory: Limited Attention: Divided attention Orientation: Alert, oriented Assessment (1) Schizophrenia Current Visit: Yes Status: Acute Treatment Plan 1013 Olanzapine 5mg po daily Prozac 10mg po daily Depakote DR 125mg po BID Sitter: Defer to primary Medical: Per primary Disposition: Recommend acute psychiatric inpatient treatment Will follow. Thank you. Case staffed with Dr. Mason. Medications and Allergies Allergies Allergy/AdvReac Type Severity Reaction Status Date / Time haloperidol [From Haldol] Allergy Unknown Verified 07/10/20 01:32 Home Medications Medication Instructions Recorded Confirmed Last Taken Type FLUoxetine HCL [Prozac] 10 mg PO DAILY #30 cap 07/22/20 Unknown Rx QUEtiapine [SEROquel] 300 mg PO BID #90 tablet 07/22/20 Unknown Rx Valproic Acid [Depakene] 500 mg PO TID #120 capsule 07/22/20 Unknown Rx metFORMIN [Glucophage] 500 mg PO BIDDIAB #60 tablet 07/22/20 Unknown Rx traZODone [Desyrel] 50 mg PO QHS #30 07/22/20 Unknown Rx Active Meds: Active Medications Dextrose (Dextrose 50% In Water (25gm) 50 Ml Syringe) 50 ml IV Q30MIN PRN; Protocol PRN Reason: Hypoglycemia Insulin Human Regular (Insulin Regular, Human 100 Units/1 Ml) 0 units SUB-Q ACHS [facility]; Protocol Last Admin: 09/01/20 08:24 Dose: 1 units Documented by: Insulin Human Regular (Insulin Regular, Human 100 Units/1 Ml) 0 units SUB-Q QHS [facility]; Protocol Last Admin: 09/01/20 06:08 Dose: Not Given Documented by: Metformin HCl (Metformin 500 Mg Tab) 500 mg PO DAILY [facility] Last Admin: 09/01/20 09:53 Dose: 500 mg Documented by: Mental Status Exam - Vital signs Last Vital Signs Temp 98.4 F 09/01/20 01:00 Pulse 71 09/01/20 01:00 Resp 20 09/01/20 01:00 BP 146/74 09/01/20 01:00 Pulse Ox 98 09/01/20 01:00 Results Result Diagrams: 08/31/20 12:00 08/31/20 12:00 Abnormal lab results 08/31/20 08/31/20 08/31/20 Range/Units 12:00 12:00 12:00 WBC (4.5-11.0) K/mm3 Lymph % (Auto) (13.4-35.0) % Glucose 284 H (65-100) mg/dL POC Glucose (70-105) mg/dL Calcium 11.9 H (8.4-10.2) mg/dL Salicylates < 0.3 L (2.8-20.0) mg/dL Acetaminophen 5.0 L (10.0-30.0) ug/mL 08/31/20 08/31/20 09/01/20 Range/Units 12:00 15:54 07:51 WBC 4.0 L (4.5-11.0) K/mm3 Lymph % (Auto) 45.8 H (13.4-35.0) % Glucose (65-100) mg/dL POC Glucose 295 H 197 H (70-105) mg/dL Calcium (8.4-10.2) mg/dL Salicylates (2.8-20.0) mg/dL Acetaminophen (10.0-30.0) ug/mL All other labs normal.
--- NOTE | 2020-09-01 10:43 | Event Note ---
Date: 09/01/20 50-year-old female with history of bipolar disorder who presented with acute shun/psychosis with paranoia. Placed on 1013 order and has been medically cleared. She was seen by the mental health/psychiatry team today who recommends further inpatient psychiatric treatment. Vital signs have been stable. There were no acute events overnight. Urinalysis is still pending. Currently awaiting inpatient psychiatric placement
[2020-09-01] MEDS ORDERED: DIVALPROEX DR 125 MG TAB PO SCH (11:00)
[2020-09-01] MEDS ORDERED: FLUoxetine 10 MG TAB PO SCH (11:00)
[2020-09-01 18:55] LABS: Amphetamine Screen,Urine Negative; Cannabinoid Screen,Urine Negative; Cocaine Screen,Urine Negative; Methadone Screen,Urine Negative; Opiate Screen,Urine Negative
[2020-09-01 19:09] LABS: Benzodiazepines Screen,Urine Positive
[2020-09-01 19:15] LABS: Bacteria,Urine 3+ /HPF (Negative); Bilirubin,Urine NEG (Negative); Blood,Urine NEG (Negative); Color,Urine Yellow (Yellow); Mucus,Urine FEW /HPF; Protein,Urine <15 mg/dL mg/dL (Negative)
[2020-09-01 20:26] VITALS: BP 140/86
== END 2020-09-01 20:10 ==
LOC: ED 11:11
DX: F30.9 Manic episode, unspecified (principal); F23 Brief psychotic disorder; Z20.822 Contact with and (suspected) exposure to COVID-19; I10 Essential (primary) hypertension; E11.9 Type 2 diabetes mellitus without complications; F41.9 Anxiety disorder, unspecified; Z79.899 Other long term (current) drug therapy; Z98.890 Other specified postprocedural states; Z88.8 Allergy status to other drugs, medicaments and biological substances
CPT/HCPCS: 36415; 80048; 80307; 81001; 82962; 84703; 85025; 87086; 96372; 99285; J3486; U0003; 80320; G0480; J1815

== ENCOUNTER 2020-09-01 17:53 | Inpatient (IN) | payer MEDICARE ==
[2020-09-01] MEDS: metFORMIN 500 MG TAB PO SCH (21:41)
[2020-09-01] MEDS: traZODone 50 MG TAB PO SCH (21:41)
[2020-09-01] MEDS: QUEtiapine 100 MG TAB PO SCH (21:41)
[2020-09-01] MEDS ORDERED: QUEtiapine 200 MG TAB PO SCH (22:00)
[2020-09-02] MEDS ORDERED: FLUoxetine 20 MG CAP PO SCH (10:00)
[2020-09-02] MEDS ORDERED: FLUoxetine 10 MG TAB PO SCH (10:00)
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
[2020-09-02] MEDS: QUEtiapine 100 MG TAB PO SCH ×2 (11:51→21:22)
[2020-09-02] MEDS: metFORMIN 500 MG TAB PO SCH ×2 (11:51→17:08)
[2020-09-02] MEDS: VALPROIC ACID 250 MG CAP PO SCH ×3 (11:52→21:23)
[2020-09-02 15:47] LABS: Basophils % (Auto) 0.6 % (0.0-1.8); Eosinophils % (Auto) 0.9 % (0.0-4.3); Hematocrit 38.8 % (30.3-42.9); Hemoglobin 13.1 gm/dl (10.1-14.3); Lymphocytes # (Auto) 2.1 K/mm3 (1.2-5.4); Lymphocytes % (Auto) 44.2 % (13.4-35.0); Mean Corpuscular HGB Conc 34 % (30-34); Mean Corpuscular Volume 83 fl (79-97); Monocytes # (Auto) 0.2 K/mm3 (0.0-0.8); Monocytes % (Auto) 5.1 % (0.0-7.3); Platelet Count 198 K/mm3 (140-440); Red Blood Count 4.71 M/mm3 (3.65-5.03); Red Cell Distribution Width 13.8 % (13.2-15.2)
[2020-09-02 16:09] LABS: Alanine Aminotransferase 38 units/L (7-56); Blood Urea Nitrogen 11 mg/dL (7-17); Calcium 11.6 mg/dL (8.4-10.2); Chol/HDL Ratio 3.81 %; HDL Cholesterol 61 mg/dL (40-59); Hemolysis Index 8; LDL Cholesterol,Direct 152 mg/dL (50-130)
[2020-09-02 16:18] LABS: BUN/Creatinine Ratio 18
[2020-09-02] MEDS: traZODone 50 MG TAB PO SCH (21:23)
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
--- NOTE | 2020-09-03 09:09 | Progress Note ---
Subjective Date of service: 09/03/20 Principal diagnosis: Schizophrenia Subjective Comment: Per nurse note: 1200 Pt. selectively mute this morning, still paranoid and disorganized, she just accepted her morning meds now. No distress noted, staff will continue to monitor pt. The patient was seen today, she is somewhat avoidant, but more talkative today. She presents a lot better than previous two days. Her thoughts appear better, but still somewhat disorganized. When asking the patient how did she feel, she replies "I don't know." She then says "I'm tired." She is asking to speak to the . She says "the last place she sent me too didn't work." The patient then says the "cable installation technician over charged me." She denies SI/HI or hallucinations of any kind. REVIEW OF SYSTEMS Constitutional: Negative for weight loss ENT: Negative for stridor Respiratory: Negative for cough or hemoptysis All other systems reviewed and are negative MENTAL STATUS EXAMINATION General Appearance and Behavior: Age appropriate, good hygiene, wearing appropriate clothes, poor eye contact, irritable Cooperation: uncooperative, guarded Mood: Affect and affective range: congruent with mood Thought Process: illogical, disorganized at times Thought Content: hallucinations Speech: normal tone and pace Suicidal Ideation: Denies SI Homicidal Ideation: Denies Hallucinations: Auditory Delusions: Yes Impulse Control: Impaired Insight and Judgment: Poor insight and judgment, Memory: Limited Attention: Divided attention Orientation: Alert, oriented Assessment (1) Schizophrenia Current Visit: Yes Status: Acute Treatment Plan Patient admitted for inpatient psychiatric evaluation, medication adjustment and close monitoring The patient's behavior, mood, sleep and appetite will be closely monitored. Patient enrolled in individual and group therapeutic sessions and encouraged to attend. Patient provided with a safe and structured environment. Patient's physical health needs will be addressed by the Hospitalist. Hospitalist Consulted Labs including CBC, CMP, Lipid profile and Hemoglobin A1C levels ordered for baseline reference Valproic level 09/03/20 Social Assessment will be completed and the Travel Med Surg Rn will work with patient and family to ensure a suitable and safe disposition Medication adjustment will be made as clinically indicated Increased Prozac 30mg po daily Usual Wellness Rastafarian/Preservation: - Start Trazodone 50 mg po QHS & 50 mg po QHS PRN between 10 PM & 2 AM for insomnia - Start Melatonin 5 mg po QHS to promote circadian rhythm The patient agreed on the treatment plan, understood the risk, benefit, alternative treatment, potential consequence of no treatment, and gave informed consent. Estimated days: 7 Post hospital care: primary care provider, psychiatric provider Case staffed with Dr. Mason Medications and Allergies Allergies Allergy/AdvReac Type Severity Reaction Status Date / Time haloperidol [From Haldol] Allergy Unknown Verified 07/10/20 01:32 Home Medications Medication Instructions Recorded Confirmed Last Taken Type FLUoxetine HCL [Prozac] 10 mg PO DAILY #30 cap 07/22/20 09/02/20 Unknown Rx QUEtiapine [SEROquel] 300 mg PO BID #90 tablet 07/22/20 09/02/20 Unknown Rx Valproic Acid [Depakene] 500 mg PO TID #120 capsule 07/22/20 09/02/20 Unknown Rx metFORMIN [Glucophage] 500 mg PO BIDDIAB #60 tablet 07/22/20 09/02/20 Unknown Rx traZODone [Desyrel] 50 mg PO QHS #30 07/22/20 09/02/20 Unknown Rx Active Meds: Active Medications Fluoxetine HCl (Fluoxetine 20 Mg Cap) 20 mg PO QDAY [facility] Last Admin: 09/02/20 11:55 Dose: 20 mg Documented by: Metformin HCl (Metformin 500 Mg Tab) 500 mg PO BIDDIAB [facility] Last Admin: 09/02/20 17:08 Dose: 500 mg Documented by: Quetiapine Fumarate (Quetiapine 100 Mg Tab) 300 mg PO BID [facility] Last Admin: 09/02/20 21:22 Dose: 300 mg Documented by: Trazodone HCl (Trazodone 50 Mg Tab) 50 mg PO QHS [facility] Last Admin: 09/02/20 21:23 Dose: 50 mg Documented by: Valproic Acid (Valproic Acid 250 Mg Cap) 500 mg PO TID [facility] Last Admin: 09/02/20 21:23 Dose: 500 mg Documented by: Results - Results Labs/Vitals: Laboratory Last Values WBC 4.7 K/mm3 (4.5-11.0) 09/02/20 15:22 RBC 4.71 M/mm3 (3.65-5.03) 09/02/20 15:22 Hgb 13.1 gm/dl (10.1-14.3) 09/02/20 15: Hct 38.8 % (30.3-42.9) 09/02/20 15:22 MCV 83 fl (79-97) 09/02/20 15:22 MCH 28 pg (28-32) 09/02/20 15:22 MCHC 34 % (30-34) 09/02/20 15:22 RDW 13.8 % (13.2-15.2) 09/02/20 15:22 Plt Count 198 K/mm3 (140-440) 09/02/20 15:22 Lymph % (Auto) 44.2 % (13.4-35.0) H 09/02/20 15:22 [place] % (Auto) 5.1 % (0.0-7.3) 09/02/20 15:22 Eos % (Auto) 0.9 % (0.0-4.3) 09/02/20 15: Baso % (Auto) 0.6 % (0.0-1.8) 09/02/20 15:22 Lymph # (Auto) 2.1 K/mm3 (1.2-5.4) 09/02/20 15:22 [place] # (Auto) 0.2 K/mm3 (0.0-0.8) 09/02/20 15:22 Eos # (Auto) 0.0 K/mm3 (0.0-0.4) 09/02/20 15: Baso # (Auto) 0.0 K/mm3 (0.0-0.1) 09/02/20 15:22 Seg Neutrophils % 49.2 % (40.0-70.0) 09/02/20 15: Seg Neutrophils # 2.3 K/mm3 (1.8-7.7) 09/02/20 15:22 Sodium 138 mmol/L (137-145) 09/02/20 15:22 Potassium 4.3 mmol/L (3.6-5.0) 09/02/20 15:22 Chloride 104.6 mmol/L (98-107) 09/02/20 15:22 Carbon Dioxide 23 mmol/L (22-30) 09/02/20 15:22 Anion Gap 15 mmol/L 09/02/20 15:22 BUN 11 mg/dL (7-17) 09/02/20 15:22 Creatinine 0.6 mg/dL (0.6-1.2) 09/02/20 15:22 Estimated GFR > 60 ml/min 09/02/20 15:22 BUN/Creatinine Ratio 18 % 09/02/20 15:22 Glucose 206 mg/dL (65-100) H 09/02/20 15:22 POC Glucose 149 mg/dL (70-105) H 09/03/20 07:16 Hemoglobin A1c 10.7 % (4-6) H 09/02/20 15:22 Calcium 11.6 mg/dL (8.4-10.2) H 09/02/20 15:22 Total Bilirubin 0.50 mg/dL (0.1-1.2) 09/02/20 15:22 AST 26 units/L (5-40) 09/02/20 15:22 ALT 38 units/L (7-56) 09/02/20 15:22 Alkaline Phosphatase 103 units/L (35-129) 09/02/20 15:22 Total Protein 6.2 g/dL (6.3-8.2) L 09/02/20 15:22 Albumin 4.0 g/dL (3.9-5) 09/02/20 15:22 Albumin/Globulin Ratio 1.8 % 09/02/20 15:22 Triglycerides 198 mg/dL (2-149) H 09/02/20 15:22 Cholesterol 233 mg/dL (50-199) H 09/02/20 15:22 LDL Cholesterol Direct 152 mg/dL (50-130) H 09/02/20 15:22 HDL Cholesterol 61 mg/dL (40-59) H 09/02/20 15:22 Cholesterol/HDL Ratio 3.81 % 09/02/20 15:22 TSH 0.256 mlU/mL (0.270-4.200) L 09/02/20 15:22 Last Vital Signs Temp 98.4 F 09/02/20 19:47 Pulse 88 09/02/20 19:47 Resp 16 09/02/20 19:47 BP 115/60 09/02/20 19:47 Pulse Ox 90 09/02/20 19:47
[2020-09-03] MEDS: VALPROIC ACID 250 MG CAP PO SCH ×3 (10:20→21:24)
[2020-09-03] MEDS: QUEtiapine 100 MG TAB PO SCH ×2 (10:20→21:24)
[2020-09-03] MEDS: metFORMIN 500 MG TAB PO SCH ×2 (10:20→16:38)
[2020-09-03] MEDS: FLUoxetine 10 MG TAB PO SCH (10:24)
[2020-09-03] MEDS: traZODone 50 MG TAB PO SCH (21:24)
[2020-09-04] MEDS: FLUoxetine 10 MG TAB PO SCH (09:09)
[2020-09-04] MEDS: QUEtiapine 100 MG TAB PO SCH ×2 (09:09→21:17)
[2020-09-04] MEDS: VALPROIC ACID 250 MG CAP PO SCH ×3 (09:09→20:45)
[2020-09-04] MEDS: metFORMIN 500 MG TAB PO SCH ×2 (09:09→16:36)
--- NOTE | 2020-09-04 10:34 | Progress Note ---
Subjective Date of service: 09/04/20 Principal diagnosis: Schizophrenia Subjective Comment: The patient was seen today, she is lying in bed awake. She says she's "worried about discharge." She denies SI/HI. She denies hallucinations, but was observed responding to internal stimuli by staff. REVIEW OF SYSTEMS Constitutional: Negative for weight loss ENT: Negative for stridor Respiratory: Negative for cough or hemoptysis All other systems reviewed and are negative MENTAL STATUS EXAMINATION General Appearance and Behavior: Age appropriate, good hygiene, wearing appropriate clothes, poor eye contact, irritable Cooperation: uncooperative, guarded Mood: Affect and affective range: congruent with mood Thought Process: illogical, disorganized at times Thought Content: hallucinations Speech: normal tone and pace Suicidal Ideation: Denies SI Homicidal Ideation: Denies Hallucinations: Denies Delusions: None elicited Impulse Control: Impaired Insight and Judgment: Poor insight and judgment, Memory: Limited Attention: Divided attention Orientation: Alert, oriented Assessment (1) Schizophrenia Current Visit: Yes Status: Acute Treatment Plan Patient admitted for inpatient psychiatric evaluation, medication adjustment and close monitoring The patient's behavior, mood, sleep and appetite will be closely monitored. Patient enrolled in individual and group therapeutic sessions and encouraged to attend. Patient provided with a safe and structured environment. Patient's physical health needs will be addressed by the Hospitalist. Hospitalist Consulted Labs including CBC, CMP, Lipid profile and Hemoglobin A1C levels ordered for baseline reference Valproic level 87.8 Social Assessment will be completed and the Promotions Specialist will work with patient and family to ensure a suitable and safe disposition Medication adjustment will be made as clinically indicated Prozac 30mg po daily Usual Wellness Buddhist/Preservation: - Start Trazodone 50 mg po QHS & 50 mg po QHS PRN between 10 PM & 2 AM for insomnia - Start Melatonin 5 mg po QHS to promote circadian rhythm The patient agreed on the treatment plan, understood the risk, benefit, alternative treatment, potential consequence of no treatment, and gave informed consent. Estimated days: 2 Post hospital care: primary care provider, psychiatric provider Case staffed with Dr. Mason Medications and Allergies Allergies Allergy/AdvReac Type Severity Reaction Status Date / Time haloperidol [From Haldol] Allergy Unknown Verified 07/10/20 01:32 Home Medications Medication Instructions Recorded Confirmed Last Taken Type metFORMIN [Glucophage] 500 mg PO BIDDIAB #60 tablet 07/22/20 09/02/20 Unknown Rx FLUoxetine [PROzac] 30 mg PO QDAY #90 tablet 09/04/20 Unknown Rx QUEtiapine [SEROquel] 300 mg PO BID #90 tablet 09/04/20 Unknown Rx Valproic Acid [Depakene] 500 mg PO TID #120 capsule 09/04/20 Unknown Rx traZODone [Desyrel] 50 mg PO QHS #30 09/04/20 Unknown Rx Active Meds: Active Medications Fluoxetine HCl (Fluoxetine 10 Mg Tab) 30 mg PO QDAY [facility] Last Admin: 09/04/20 09:09 Dose: 30 mg Documented by: Metformin HCl (Metformin 500 Mg Tab) 500 mg PO BIDDIAB [facility] Last Admin: 09/04/20 09:09 Dose: 500 mg Documented by: Quetiapine Fumarate (Quetiapine 100 Mg Tab) 300 mg PO BID [facility] Last Admin: 09/04/20 09:09 Dose: 300 mg Documented by: Trazodone HCl (Trazodone 50 Mg Tab) 50 mg PO QHS [facility] Last Admin: 09/03/20 21:24 Dose: 50 mg Documented by: Valproic Acid (Valproic Acid 250 Mg Cap) 500 mg PO TID [facility] Last Admin: 09/04/20 09:09 Dose: 500 mg Documented by: Results - Results Labs/Vitals: Laboratory Last Values WBC 4.7 K/mm3 (4.5-11.0) 09/02/20 15:22 RBC 4.71 M/mm3 (3.65-5.03) 09/02/20 15:22 Hgb 13.1 gm/dl (10.1-14.3) 09/02/20 15:22 Hct 38.8 % (30.3-42.9) 09/02/20 15:22 MCV 83 fl (79-97) 09/02/20 15:22 MCH 28 pg (28-32) 09/02/20 15:22 MCHC 34 % (30-34) 09/02/20 15:22 RDW 13.8 % (13.2-15.2) 09/02/20 15:22 Plt Count 198 K/mm3 (140-440) 09/02/20 15:22 Lymph % (Auto) 44.2 % (13.4-35.0) H 09/02/20 15:22 [place] % (Auto) 5.1 % (0.0-7.3) 09/02/20 15:22 Eos % (Auto) 0.9 % (0.0-4.3) 09/02/20 15:22 Baso % (Auto) 0.6 % (0.0-1.8) 09/02/20 15:22 Lymph # (Auto) 2.1 K/mm3 (1.2-5.4) 09/02/20 15:22 [place] # (Auto) 0.2 K/mm3 (0.0-0.8) 09/02/20 15:22 Eos # (Auto) 0.0 K/mm3 (0.0-0.4) 09/02/20 15:22 Baso # (Auto) 0.0 K/mm3 (0.0-0.1) 09/02/20 15:22 Seg Neutrophils % 49.2 % (40.0-70.0) 09/02/20 15:22 Seg Neutrophils # 2.3 K/mm3 (1.8-7.7) 09/02/20 15:22 Sodium 138 mmol/L (137-145) 09/02/20 15:22 Potassium 4.3 mmol/L (3.6-5.0) 09/02/20 15:22 Chloride 104.6 mmol/L (98-107) 09/02/20 15:22 Carbon Dioxide 23 mmol/L (22-30) 09/02/20 15:22 Anion Gap 15 mmol/L 09/02/20 15:22 BUN 11 mg/dL (7-17) 09/02/20 15:22 Creatinine 0.6 mg/dL (0.6-1.2) 09/02/20 15:22 Estimated GFR > 60 ml/min 09/02/20 15:22 BUN/Creatinine Ratio 18 % 09/02/20 15:22 Glucose 206 mg/dL (65-100) H 09/02/20 15:22 POC Glucose 127 mg/dL (70-105) H 09/04/20 06:29 Hemoglobin A1c 10.7 % (4-6) H 09/02/20 15:22 Calcium 11.6 mg/dL (8.4-10.2) H 09/02/20 15:22 Total Bilirubin 0.50 mg/dL (0.1-1.2) 09/02/20 15:22 AST 26 units/L (5-40) 09/02/20 15:22 ALT 38 units/L (7-56) 09/02/20 15:22 Alkaline Phosphatase 103 units/L (35-129) 09/02/20 15:22 Total Protein 6.2 g/dL (6.3-8.2) L 09/02/20 15:22 Albumin 4.0 g/dL (3.9-5) 09/02/20 15:22 Albumin/Globulin Ratio 1.8 % 09/02/20 15:22 Triglycerides 198 mg/dL (2-149) H 09/02/20 15:22 Cholesterol 233 mg/dL (50-199) H 09/02/20 15:22 LDL Cholesterol Direct 152 mg/dL (50-130) H 09/02/20 15:22 HDL Cholesterol 61 mg/dL (40-59) H 09/02/20 15:22 Cholesterol/HDL Ratio 3.81 % 09/02/20 15:22 TSH 0.256 mlU/mL (0.270-4.200) L 09/02/20 15:22 Valproic Acid 87.8 ug/mL (50-100) 09/03/20 19:54 Last Vital Signs Temp 97.5 F L 09/04/20 07:51 Pulse 83 09/04/20 07:51 Resp 17 09/04/20 07:51 BP 103/70 09/04/20 07:51 Pulse Ox 94 09/04/20 07:51
[2020-09-04] MEDS: traZODone 50 MG TAB PO SCH (21:18)
--- NOTE | 2020-09-05 07:56 | Event Note ---
Date: 09/05/20 Hemoglobin A1c is 10.7 His glucose levels are running high Glimepiride 2 mg once a day added Patient to be discharged on glimepiride 2 mg once a day and Metformin 500 mg twice a day Patient to follow-up with PCP for better control of his diabetes
--- NOTE | 2020-09-05 08:34 | Progress Note ---
Subjective Date of service: 09/05/20 Principal diagnosis: Schizophrenia Subjective Comment: The patient was seen today, she is lying in bed awake. She has improved significantly. She says she can't go back to that other place because "it wasn't a good place." She says she's worried. The patient denies SI/HI or hallucinations of any kind. Staff at times have observed the patient responding to internal stimuli. Will continue to treat and monitor the patient to ensue a safe discharge. Spoke with the SW about the patient's concerns. She says she is working on finding the patient a safe place to discharge. REVIEW OF SYSTEMS Constitutional: Negative for weight loss ENT: Negative for stridor Respiratory: Negative for cough or hemoptysis All other systems reviewed and are negative MENTAL STATUS EXAMINATION General Appearance and Behavior: Age appropriate, good hygiene, wearing appropriate clothes, poor eye contact, irritable Cooperation: uncooperative, guarded Mood: Affect and affective range: congruent with mood Thought Process: illogical, disorganized at times Thought Content: hallucinations Speech: normal tone and pace Suicidal Ideation: Denies SI Homicidal Ideation: Denies Hallucinations: Denies Delusions: None elicited Impulse Control: Impaired Insight and Judgment: Poor insight and judgment, Memory: Limited Attention: Divided attention Orientation: Alert, oriented Assessment (1) Schizophrenia Current Visit: Yes Status: Acute Treatment Plan Patient admitted for inpatient psychiatric evaluation, medication adjustment and close monitoring The patient's behavior, mood, sleep and appetite will be closely monitored. Patient enrolled in individual and group therapeutic sessions and encouraged to attend. Patient provided with a safe and structured environment. Patient's physical health needs will be addressed by the Hospitalist. Hospitalist Consulted Labs including CBC, CMP, Lipid profile and Hemoglobin A1C levels ordered for baseline reference Valproic level 87.8 Social Assessment will be completed and the Sales Analyst will work with patient and family to ensure a suitable and safe disposition Medication adjustment will be made as clinically indicated Prozac 30mg po daily Continue Seroquel Usual Wellness Gnosticist/Preservation: - Start Trazodone 50 mg po QHS & 50 mg po QHS PRN between 10 PM & 2 AM for insomnia - Start Melatonin 5 mg po QHS to promote circadian rhythm The patient agreed on the treatment plan, understood the risk, benefit, alternative treatment, potential consequence of no treatment, and gave informed consent. Estimated days: 2 Post hospital care: primary care provider, psychiatric provider Case staffed with Dr. Mason Medications and Allergies Allergies Allergy/AdvReac Type Severity Reaction Status Date / Time haloperidol [From Haldol] Allergy Unknown Verified 07/10/20 01:32 Home Medications Medication Instructions Recorded Confirmed Last Taken Type metFORMIN [Glucophage] 500 mg PO BIDDIAB #60 tablet 07/22/20 09/02/20 Unknown Rx FLUoxetine [PROzac] 30 mg PO QDAY #90 tablet 09/04/20 Unknown Rx QUEtiapine [SEROquel] 300 mg PO BID #90 tablet 09/04/20 Unknown Rx Valproic Acid [Depakene] 500 mg PO TID #120 capsule 09/04/20 Unknown Rx traZODone [Desyrel] 50 mg PO QHS #30 09/04/20 Unknown Rx Active Meds: Active Medications Fluoxetine HCl (Fluoxetine 10 Mg Tab) 30 mg PO QDAY [facility] Last Admin: 09/04/20 09:09 Dose: 30 mg Documented by: Glimepiride (Glimepiride 2 Mg Tab) 2 mg PO QDDIAB [facility] Insulin Human Lispro (Insulin Lispro 100 Unit/Ml) 0 unit SUB-Q [facility]; Protocol Metformin HCl (Metformin 500 Mg Tab) 500 mg PO BIDDIAB [facility] Last Admin: 09/04/20 16:36 Dose: 500 mg Documented by: Quetiapine Fumarate (Quetiapine 100 Mg Tab) 300 mg PO BID [facility] Last Admin: 09/04/20 21:17 Dose: 300 mg Documented by: Trazodone HCl (Trazodone 50 Mg Tab) 50 mg PO QHS [facility] Last Admin: 09/04/20 21:18 Dose: 50 mg Documented by: Valproic Acid (Valproic Acid 250 Mg Cap) 500 mg PO TID [facility] Last Admin: 09/04/20 20:45 Dose: 500 mg Documented by: Results - Results Labs/Vitals: Laboratory Last Values WBC 4.7 K/mm3 (4.5-11.0) 09/02/20 15:22 RBC 4.71 M/mm3 (3.65-5.03) 09/02/20 15:22 Hgb 13.1 gm/dl (10.1-14.3) 09/02/20 15:22 Hct 38.8 % (30.3-42.9) 09/02/20 15:22 MCV 83 fl (79-97) 09/02/20 15:22 MCH 28 pg (28-32) 09/02/20 15:22 MCHC 34 % (30-34) 09/02/20 15:22 RDW 13.8 % (13.2-15.2) 09/02/20 15:22 Plt Count 198 K/mm3 (140-440) 09/02/20 15:22 Lymph % (Auto) 44.2 % (13.4-35.0) H 09/02/20 15:22 [place] % (Auto) 5.1 % (0.0-7.3) 09/02/20 15:22 Eos % (Auto) 0.9 % (0.0-4.3) 09/02/20 15:22 Baso % (Auto) 0.6 % (0.0-1.8) 09/02/20 15:22 Lymph # (Auto) 2.1 K/mm3 (1.2-5.4) 09/02/20 15:22 [place] # (Auto) 0.2 K/mm3 (0.0-0.8) 09/02/20 15:22 Eos # (Auto) 0.0 K/mm3 (0.0-0.4) 09/02/20 15:22 Baso # (Auto) 0.0 K/mm3 (0.0-0.1) 09/02/20 15:22 Seg Neutrophils % 49.2 % (40.0-70.0) 09/02/20 15:22 Seg Neutrophils # 2.3 K/mm3 (1.8-7.7) 09/02/20 15:22 Sodium 138 mmol/L (137-145) 09/02/20 15:22 Potassium 4.3 mmol/L (3.6-5.0) 09/02/20 15:22 Chloride 104.6 mmol/L (98-107) 09/02/20 15:22 Carbon Dioxide 23 mmol/L (22-30) 09/02/20 15:22 Anion Gap 15 mmol/L 09/02/20 15:22 BUN 11 mg/dL (7-17) 09/02/20 15:22 Creatinine 0.6 mg/dL (0.6-1.2) 09/02/20 15:22 Estimated GFR > 60 ml/min 09/02/20 15:22 BUN/Creatinine Ratio 18 % 09/02/20 15:22 Glucose 206 mg/dL (65-100) H 09/02/20 15:22 POC Glucose 114 mg/dL (70-105) H 09/05/20 06:26 Hemoglobin A1c 10.7 % (4-6) H 09/02/20 15:22 Calcium 11.6 mg/dL (8.4-10.2) H 09/02/20 15:22 Total Bilirubin 0.50 mg/dL (0.1-1.2) 09/02/20 15:22 AST 26 units/L (5-40) 09/02/20 15:22 ALT 38 units/L (7-56) 09/02/20 15:22 Alkaline Phosphatase 103 units/L (35-129) 09/02/20 15:22 Total Protein 6.2 g/dL (6.3-8.2) L 09/02/20 15:22 Albumin 4.0 g/dL (3.9-5) 09/02/20 15:22 Albumin/Globulin Ratio 1.8 % 09/02/20 15:22 Triglycerides 198 mg/dL (2-149) H 09/02/20 15:22 Cholesterol 233 mg/dL (50-199) H 09/02/20 15:22 LDL Cholesterol Direct 152 mg/dL (50-130) H 09/02/20 15:22 HDL Cholesterol 61 mg/dL (40-59) H 09/02/20 15:22 Cholesterol/HDL Ratio 3.81 % 09/02/20 15:22 TSH 0.256 mlU/mL (0.270-4.200) L 09/02/20 15:22 Valproic Acid 87.8 ug/mL (50-100) 09/03/20 19:54 Last Vital Signs Temp 98.2 F 09/05/20 07:30 Pulse 89 09/05/20 07:30 Resp 20 09/05/20 07:30 BP 116/74 09/04/20 22:00 Pulse Ox 98 09/05/20 07:30
[2020-09-05] MEDS: FLUoxetine 10 MG TAB PO SCH (09:10)
[2020-09-05] MEDS: VALPROIC ACID 250 MG CAP PO SCH ×3 (09:10→22:29)
[2020-09-05] MEDS: metFORMIN 500 MG TAB PO SCH ×2 (09:11→16:41)
[2020-09-05] MEDS: GLIMEPIRIDE 2 MG TAB PO SCH (09:11)
[2020-09-05] MEDS: QUEtiapine 100 MG TAB PO SCH ×2 (09:11→22:27)
[2020-09-05] MEDS: INSULIN LISPRO 100 UNIT/ML SUB-Q SCH ×3 (11:36→21:54)
[2020-09-05] MEDS: traZODone 50 MG TAB PO SCH (22:27)
[2020-09-06] MEDS: INSULIN LISPRO 100 UNIT/ML SUB-Q SCH ×4 (07:32→21:16)
[2020-09-06] MEDS: metFORMIN 500 MG TAB PO SCH ×2 (08:52→16:50)
[2020-09-06] MEDS: VALPROIC ACID 250 MG CAP PO SCH ×3 (08:52→20:42)
[2020-09-06] MEDS: GLIMEPIRIDE 2 MG TAB PO SCH (08:52)
--- NOTE | 2020-09-06 08:52 | Progress Note ---
Subjective Date of service: 09/06/20 Principal diagnosis: Schizophrenia Subjective Comment: 09/05/2020: The patient was seen today, she is lying in bed awake. She has improved significantly. She says she can't go back to that other place because "it wasn't a good place." She says she's worried. The patient denies SI/HI or hallucinations of any kind. Staff at times have observed the patient responding to internal stimuli. Will continue to treat and monitor the patient to ensue a safe discharge. Spoke with the SW about the patient's concerns. She says she is working on finding the patient a safe place to discharge. 09/05/2020: I interviewed the patient this morning. Medical records reviewed and patient's progress was discussed with unit staff. Nursing staff reports that "Last evening the patient spent part of her time in the activity room until she was frightened by a peer. She spent the rest of her time in her room. She has been pleasant and cooperative throughout the evening. She talks about stopping her medications and feeling out of control. She denies si/hi/ah/vh. Her appetite is good and she was medication compliant. Overnight the patient rested quietly. She slept 8 hours. Will continue to monitor patient for safety." In my interview with the patient this morning, the patient reports mood as "so so". Patient is complaining about her medications" it makes me sleepy all day." Patient states she is doing better and reports that therapy is helpful for her. Appetite is good. Sleep last night was good. She denies any current suicidal/homicidal ideation and denies hallucinations. No changes made to treatment plan today. REVIEW OF SYSTEMS Constitutional: Negative for weight loss ENT: Negative for stridor Respiratory: Negative for cough or hemoptysis All other systems reviewed and are negative MENTAL STATUS EXAMINATION General Appearance and Behavior: Age appropriate, good hygiene, wearing appropriate clothes, poor eye contact, irritable Cooperation: cooperative Mood: "so so" Affect and affective range: congruent with mood Thought Process: Goal directed Thought Content: Denies hallucinations Speech: normal tone and pace Suicidal Ideation: Denies SI Homicidal Ideation: Denies Hallucinations: Denies Delusions: None elicited Impulse Control: Impaired Insight and Judgment: Limited insight and judgment, Memory: Limited Attention: Distractible Orientation: Alert, oriented Assessment (1) Schizophrenia Current Visit: Yes Status: Acute Treatment Plan Patient admitted for inpatient psychiatric evaluation, medication adjustment and close monitoring The patient's behavior, mood, sleep and appetite will be closely monitored. Patient enrolled in individual and group therapeutic sessions and encouraged to attend. Patient provided with a safe and structured environment. Patient's physical health needs will be addressed by the Hospitalist. Hospitalist Consulted Labs including CBC, CMP, Lipid profile and Hemoglobin A1C levels ordered for baseline reference Social Assessment will be completed and the Information Systems Security Developer will work with patient and family to ensure a suitable and safe disposition Medication adjustment will be made as clinically indicated Continue Prozac 30mg po daily Continue Seroquel 300mg po BID Continue home meds. Usual Wellness Islam/Preservation: - Start Trazodone 50 mg po QHS & 50 mg po QHS PRN between 10 PM & 2 AM for insomnia - Start Melatonin 5 mg po QHS to promote circadian rhythm The patient agreed on the treatment plan, understood the risk, benefit, alternative treatment, potential consequence of no treatment, and gave informed consent. Estimated days: 1 Post hospital care: primary care provider, psychiatric provider Case staffed with Dr. Mason Medications and Allergies Medications and Allergies Allergies Allergy/AdvReac Type Severity Reaction Status Date / Time haloperidol [From Haldol] Allergy Unknown Verified 07/10/20 01:32 Home Medications Medication Instructions Recorded Confirmed Last Taken Type metFORMIN [Glucophage] 500 mg PO BIDDIAB #60 tablet 07/22/20 09/02/20 Unknown Rx FLUoxetine [PROzac] 30 mg PO QDAY #90 tablet 09/04/20 Unknown Rx QUEtiapine [SEROquel] 300 mg PO BID #90 tablet 09/04/20 Unknown Rx Valproic Acid [Depakene] 500 mg PO TID #120 capsule 09/04/20 Unknown Rx traZODone [Desyrel] 50 mg PO QHS #30 09/04/20 Unknown Rx Active Meds: Active Medications Fluoxetine HCl (Fluoxetine 10 Mg Tab) 30 mg PO QDAY [facility] Last Admin: 09/05/20 09:10 Dose: 30 mg Documented by: Glimepiride (Glimepiride 2 Mg Tab) 2 mg PO QDDIAB [facility] Last Admin: 09/05/20 09:11 Dose: 2 mg Documented by: Insulin Human Lispro (Insulin Lispro 100 Unit/Ml) 0 unit SUB-Q ACHS [facility]; Protocol Last Admin: 09/06/20 07:32 Dose: Not Given Documented by: Metformin HCl (Metformin 500 Mg Tab) 500 mg PO BIDDIAB [facility] Last Admin: 09/05/20 16:41 Dose: 500 mg Documented by: Quetiapine Fumarate (Quetiapine 100 Mg Tab) 300 mg PO BID [facility] Last Admin: 09/05/20 22:27 Dose: 300 mg Documented by: Trazodone HCl (Trazodone 50 Mg Tab) 50 mg PO QHS [facility] Last Admin: 09/05/20 22:27 Dose: 50 mg Documented by: Valproic Acid (Valproic Acid 250 Mg Cap) 500 mg PO TID [facility] Last Admin: 09/05/20 22:29 Dose: 500 mg Documented by: Results - Results Labs/Vitals: Laboratory Last Values WBC 4.7 K/mm3 (4.5-11.0) 09/02/20 15:22 RBC 4.71 M/mm3 (3.65-5.03) 09/02/20 15:22 Hgb 13.1 gm/dl (10.1-14.3) 09/02/20 15:22 Hct 38.8 % (30.3-42.9) 09/02/20 15:22 MCV 83 fl (79-97) 09/02/20 15:22 MCH 28 pg (28-32) 09/02/20 15:22 MCHC 34 % (30-34) 09/02/20 15:22 RDW 13.8 % (13.2-15.2) 09/02/20 15:22 Plt Count 198 K/mm3 (140-440) 09/02/20 15:22 Lymph % (Auto) 44.2 % (13.4-35.0) H 09/02/20 15:22 Clare % (Auto) 5.1 % (0.0-7.3) 09/02/20 15:22 Eos % (Auto) 0.9 % (0.0-4.3) 09/02/20 15:22 Baso % (Auto) 0.6 % (0.0-1.8) 09/02/20 15:22 Lymph # (Auto) 2.1 K/mm3 (1.2-5.4) 09/02/20 15:22 Clare # (Auto) 0.2 K/mm3 (0.0-0.8) 09/02/20 15:22 Eos # (Auto) 0.0 K/mm3 (0.0-0.4) 09/02/20 15:22 Baso # (Auto) 0.0 K/mm3 (0.0-0.1) 09/02/20 15:22 Seg Neutrophils % 49.2 % (40.0-70.0) 09/02/20 15:22 Seg Neutrophils # 2.3 K/mm3 (1.8-7.7) 09/02/20 15:22 Sodium 138 mmol/L (137-145) 09/02/20 15:22 Potassium 4.3 mmol/L (3.6-5.0) 09/02/20 15:22 Chloride 104.6 mmol/L (98-107) 09/02/20 15:22 Carbon Dioxide 23 mmol/L (22-30) 09/02/20 15:22 Anion Gap 15 mmol/L 09/02/20 15:22 BUN 11 mg/dL (7-17) 09/02/20 15:22 Creatinine 0.6 mg/dL (0.6-1.2) 09/02/20 15:22 Estimated GFR > 60 ml/min 09/02/20 15:22 BUN/Creatinine Ratio 18 % 09/02/20 15:22 Glucose 206 mg/dL (65-100) H 09/02/20 15:22 POC Glucose 157 mg/dL (70-105) H 09/06/20 07:23 Hemoglobin A1c 10.7 % (4-6) H 09/02/20 15:22 Calcium 11.6 mg/dL (8.4-10.2) H 09/02/20 15:22 Total Bilirubin 0.50 mg/dL (0.1-1.2) 09/02/20 15:22 AST 26 units/L (5-40) 09/02/20 15:22 ALT 38 units/L (7-56) 09/02/20 15:22 Alkaline Phosphatase 103 units/L (35-129) 09/02/20 15:22 Total Protein 6.2 g/dL (6.3-8.2) L 09/02/20 15:22 Albumin 4.0 g/dL (3.9-5) 09/02/20 15:22 Albumin/Globulin Ratio 1.8 % 09/02/20 15:22 Triglycerides 198 mg/dL (2-149) H 09/02/20 15:22 Cholesterol 233 mg/dL (50-199) H 09/02/20 15:22 LDL Cholesterol Direct 152 mg/dL (50-130) H 09/02/20 15:22 HDL Cholesterol 61 mg/dL (40-59) H 09/02/20 15:22 Cholesterol/HDL Ratio 3.81 % 09/02/20 15:22 TSH 0.256 mlU/mL (0.270-4.200) L 09/02/20 15:22 Valproic Acid 87.8 ug/mL (50-100) 09/03/20 19:54 Last Vital Signs Temp 98.3 F 09/06/20 07:47 Pulse 94 H 09/06/20 07:47 Resp 18 09/06/20 07:47 BP 105/71 09/06/20 07:47 Pulse Ox 97 09/06/20 07:47
[2020-09-06] MEDS: QUEtiapine 100 MG TAB PO SCH ×2 (09:00→21:14)
[2020-09-06] MEDS: FLUoxetine 10 MG TAB PO SCH (09:00)
[2020-09-06] MEDS: traZODone 50 MG TAB PO SCH (21:15)
[2020-09-07] MEDS: INSULIN LISPRO 100 UNIT/ML SUB-Q SCH ×4 (07:45→21:14)
--- NOTE | 2020-09-07 08:13 | Progress Note ---
Subjective Date of service: 09/07/20 Principal diagnosis: Schizophrenia Subjective Comment: 09/05/2020: The patient was seen today, she is lying in bed awake. She has improved significantly. She says she can't go back to that other place because "it wasn't a good place." She says she's worried. The patient denies SI/HI or hallucinations of any kind. Staff at times have observed the patient responding to internal stimuli. Will continue to treat and monitor the patient to ensue a safe discharge. Spoke with the SW about the patient's concerns. She says she is working on finding the patient a safe place to discharge. 09/06/2020: I interviewed the patient this morning. Medical records reviewed and patient's progress was discussed with unit staff. Nursing staff reports that "Last evening the patient spent part of her time in the activity room until she was frightened by a peer. She spent the rest of her time in her room. She has been pleasant and cooperative throughout the evening. She talks about stopping her medications and feeling out of control. She denies si/hi/ah/vh. Her appetite is good and she was medication compliant. Overnight the patient rested quietly. She slept 8 hours. Will continue to monitor patient for safety." In my interview with the patient this morning, the patient reports mood as "so so". Patient is complaining about her medications" it makes me sleepy all day." Patient states she is doing better and reports that therapy is helpful for her. Appetite is good. Sleep last night was good. She denies any current suicidal/homicidal ideation and denies hallucinations. No changes made to treatment plan today. 09/07/2020: I interviewed the patient this morning. Medical records reviewed and patient's progress was discussed with unit staff. Nursing staff reports that patient " Last evening the patient spent most of her time in her room due to conflict with a female peer. She was pleasant and cooperative all evening. She denies si/hi/ah/vh. Her appetite is good and she is medication compliant. Overnight the patient slept 9 hours. Will continue to monitor patient for safety. In my interview with the patient this morning, the patient was seen in the activity room. She reports mood as "calm". Appetite is good. Sleep last night was good. She denies any current suicidal ideation and denies hallucinations. No changes to the treatment plan today. REVIEW OF SYSTEMS Constitutional: Negative for weight loss ENT: Negative for stridor Respiratory: Negative for cough or hemoptysis All other systems reviewed and are negative MENTAL STATUS EXAMINATION General Appearance and Behavior: Age appropriate, good hygiene, wearing appropriate clothes, poor eye contact, irritable Cooperation: cooperative Mood: "calm" Affect and affective range: congruent with mood Thought Process: Goal directed Thought Content: Denies hallucinations Speech: normal tone and pace Suicidal Ideation: Denies SI Homicidal Ideation: Denies Hallucinations: Denies Delusions: None elicited Impulse Control: Impaired Insight and Judgment: Limited insight and judgment, Memory: Limited Attention: Distractible Orientation: Alert, oriented Assessment (1) Schizophrenia Current Visit: Yes Status: Acute Treatment Plan Patient admitted for inpatient psychiatric evaluation, medication adjustment and close monitoring The patient's behavior, mood, sleep and appetite will be closely monitored. Patient enrolled in individual and group therapeutic sessions and encouraged to attend. Patient provided with a safe and structured environment. Patient's physical health needs will be addressed by the Hospitalist. Hospita list Consulted Labs including CBC, CMP, Lipid profile and Hemoglobin A1C levels ordered for baseline reference Social Assessment will be completed and the Java Designer will work with patient and family to ensure a suitable and safe disposition Medication adjustment will be made as clinically indicated Continue Prozac 30mg po daily Continue Seroquel 300mg po BID Continue home meds. Usual Wellness Holiness/Preservation: - Start Trazodone 50 mg po QHS & 50 mg po QHS PRN between 10 PM & 2 AM for insomnia - Start Melatonin 5 mg po QHS to promote circadian rhythm The patient agreed on the treatment plan, understood the risk, benefit, alternative treatment, potential consequence of no treatment, and gave informed consent. Estimated days: 1 Post hospital care: primary care provider, psychiatric provider Case staffed with Dr. Mason Medications and Allergies Medications and Allergies Allergies Allergy/AdvReac Type Severity Reaction Status Date / Time haloperidol [From Haldol] Allergy Unknown Verified 07/10/20 01:32 Home Medications Medication Instructions Recorded Confirmed Last Taken Type metFORMIN [Glucophage] 500 mg PO BIDDIAB #60 tablet 07/22/20 09/02/20 Unknown Rx FLUoxetine [PROzac] 30 mg PO QDAY #90 tablet 09/04/20 Unknown Rx QUEtiapine [SEROquel] 300 mg PO BID #90 tablet 09/04/20 Unknown Rx Valproic Acid [Depakene] 500 mg PO TID #120 capsule 09/04/20 Unknown Rx traZODone [Desyrel] 50 mg PO QHS #30 09/04/20 Unknown Rx Active Meds: Active Medications Fluoxetine HCl (Fluoxetine 10 Mg Tab) 30 mg PO QDAY [facility] Last Admin: 09/06/20 09:00 Dose: 30 mg Documented by: Glimepiride (Glimepiride 2 Mg Tab) 2 mg PO QDDIAB [facility] Last Admin: 09/06/20 08:52 Dose: 2 mg Documented by: Insulin Human Lispro (Insulin Lispro 100 Unit/Ml) 0 unit SUB-Q ACHS [facility]; Protocol Last Admin: 09/06/20 21:16 Dose: Not Given Documented by: Metformin HCl (Metformin 500 Mg Tab) 500 mg PO BIDDIAB [facility] Last Admin: 09/06/20 16:50 Dose: 500 mg Documented by: Quetiapine Fumarate (Quetiapine 100 Mg Tab) 300 mg PO BID [facility] Last Admin: 09/06/20 21:14 Dose: 300 mg Documented by: Trazodone HCl (Trazodone 50 Mg Tab) 50 mg PO QHS [facility] Last Admin: 09/06/20 21:15 Dose: 50 mg Documented by: Valproic Acid (Valproic Acid 250 Mg Cap) 500 mg PO TID [facility] Last Admin: 09/06/20 20:42 Dose: 500 mg Documented by: Results - Results Labs/Vitals: Laboratory Last Values WBC 4.7 K/mm3 (4.5-11.0) 09/02/20 15:22 RBC 4.71 M/mm3 (3.65-5.03) 09/02/20 15:22 Hgb 13.1 gm/dl (10.1-14.3) 09/02/20 15:22 Hct 38.8 % (30.3-42.9) 09/02/20 15:22 MCV 83 fl (79-97) 09/02/20 15:22 MCH 28 pg (28-32) 09/02/20 15:22 MCHC 34 % (30-34) 09/02/20 15:22 RDW 13.8 % (13.2-15.2) 09/02/20 15:22 Plt Count 198 K/mm3 (140-440) 09/02/20 15:22 Lymph % (Auto) 44.2 % (13.4-35.0) H 09/02/20 15:22 Mitchell % (Auto) 5.1 % (0.0-7.3) 09/02/20 15:22 Eos % (Auto) 0.9 % (0.0-4.3) 09/02/20 15:22 Baso % (Auto) 0.6 % (0.0-1.8) 09/02/20 15:22 Lymph # (Auto) 2.1 K/mm3 (1.2-5.4) 09/02/20 15:22 Mitchell # (Auto) 0.2 K/mm3 (0.0-0.8) 09/02/20 15:22 Eos # (Auto) 0.0 K/mm3 (0.0-0.4) 09/02/20 15:22 Baso # (Auto) 0.0 K/mm3 (0.0-0.1) 09/02/20 15:22 Seg Neutrophils % 49.2 % (40.0-70.0) 09/02/20 15:22 Seg Neutrophils # 2.3 K/mm3 (1.8-7.7) 09/02/20 15:22 Sodium 138 mmol/L (137-145) 09/02/20 15:22 Potassium 4.3 mmol/L (3.6-5.0) 09/02/20 15:22 Chloride 104.6 mmol/L (98-107) 09/02/20 15:22 Carbon Dioxide 23 mmol/L (22-30) 09/02/20 15:22 Anion Gap 15 mmol/L 09/02/20 15:22 BUN 11 mg/dL (7-17) 09/02/20 15:22 Creatinine 0.6 mg/dL (0.6-1.2) 09/02/20 15:22 Estimated GFR > 60 ml/min 09/02/20 15:22 BUN/Creatinine Ratio 18 % 09/02/20 15:22 Glucose 206 mg/dL (65-100) H 09/02/20 15:22 POC Glucose 136 mg/dL (70-105) H 09/07/20 06:15 Hemoglobin A1c 10.7 % (4-6) H 09/02/20 15:22 Calcium 11.6 mg/dL (8.4-10.2) H 09/02/20 15:22 Total Bilirubin 0.50 mg/dL (0.1-1.2) 09/02/20 15:22 AST 26 units/L (5-40) 09/02/20 15:22 ALT 38 units/L (7-56) 09/02/20 15:22 Alkaline Phosphatase 103 units/L (35-129) 09/02/20 15:22 Total Protein 6.2 g/dL (6.3-8.2) L 09/02/20 15:22 Albumin 4.0 g/dL (3.9-5) 09/02/20 15:22 Albumin/Globulin Ratio 1.8 % 09/02/20 15:22 Triglycerides 198 mg/dL (2-149) H 09/02/20 15:22 Cholesterol 233 mg/dL (50-199) H 09/02/20 15:22 LDL Cholesterol Direct 152 mg/dL (50-130) H 09/02/20 15:22 HDL Cholesterol 61 mg/dL (40-59) H 09/02/20 15:22 Cholesterol/HDL Ratio 3.81 % 09/02/20 15:22 TSH 0.256 mlU/mL (0.270-4.200) L 09/02/20 15:22 Valproic Acid 87.8 ug/mL (50-100) 09/03/20 19:54 Last Vital Signs Temp 98.5 F 09/06/20 22:00 Pulse 95 H 09/06/20 22:00 Resp 18 09/06/20 22:00 BP 126/82 09/06/20 22:00 Pulse Ox 97 09/06/20 07:47
[2020-09-07] MEDS: VALPROIC ACID 250 MG CAP PO SCH ×3 (09:50→21:13)
[2020-09-07] MEDS: metFORMIN 500 MG TAB PO SCH ×2 (09:50→17:00)
[2020-09-07] MEDS: GLIMEPIRIDE 2 MG TAB PO SCH (09:51)
[2020-09-07] MEDS: FLUoxetine 10 MG TAB PO SCH (09:51)
[2020-09-07] MEDS: QUEtiapine 100 MG TAB PO SCH ×2 (09:51→21:13)
[2020-09-07] MEDS: traZODone 50 MG TAB PO SCH (21:14)
--- NOTE | 2020-09-08 08:33 | Progress Note ---
Subjective - Reason for Consult Consult date: 09/08/20 Reason for consult: Schizophrenia - Chief Complaint Chief complaint: 09/05/2020: The patient was seen today, she is lying in bed awake. She has improved significantly. She says she can't go back to that other place because "it wasn't a good place." She says she's worried. The patient denies SI/HI or hallucinations of any kind. Staff at times have observed the patient responding to internal stimuli. Will continue to treat and monitor the patient to ensue a safe discharge. Spoke with the SW about the patient's concerns. She says she is working on finding the patient a safe place to discharge. 09/06/2020: I interviewed the patient this morning. Medical records reviewed and patient's progress was discussed with unit staff. Nursing staff reports that "Last evening the patient spent part of her time in the activity room until she was frightened by a peer. She spent the rest of her time in her room. She has been pleasant and cooperative throughout the evening. She talks about stopping her medications and feeling out of control. She denies si/hi/ah/vh. Her appetite is good and she was medication compliant. Overnight the patient rested quietly. She slept 8 hours. Will continue to monitor patient for safety." In my interview with the patient this morning, the patient reports mood as "so so". Patient is complaining about her medications" it makes me sleepy all day." Patient states she is doing better and reports that therapy is helpful for her. Appetite is good. Sleep last night was good. She denies any current suicidal/homicidal ideation and denies hallucinations. No changes made to treatment plan today. 09/07/2020: I interviewed the patient this morning. Medical records reviewed and patient's progress was discussed with unit staff. Nursing staff reports that patient " Last evening the patient spent most of her time in her room due to conflict with a female peer. She was pleasant and cooperative all evening. She denies si/hi/ah/vh. Her appetite is good and she is medication compliant. Overnight the patient slept 9 hours. Will continue to monitor patient for safety. In my interview with the patient this morning, the patient was seen in the activity room. She reports mood as "calm". Appetite is good. Sleep last night was good. She denies any current suicidal ideation and denies hallucinations. No changes to the treatment plan today. 09/08/2020: I interviewed the patient this morning. Medical records reviewed and patient's progress was discussed with unit staff. Nursing staff reports that patient "Last evening the patient interacted appropriately with others. She talked about wanting a safe place to live when she leaves the hospital. She reports that that is one of her major stressors. She denies si/hi/ah/vh. Her appetite is good. Overnight the patient rested quietly. She slept 8 hours. Will continue to monitor patient for safety." In my interview with the patient this morning, the patient was seen in her room sitting on the bed. She reports that she feels better but continues to complain about her medications " I think I'm getting too much." She reports feeling tired. She reports stressors as " I am worried about what will happen when I leave here, I am ready to work with them." Appetite is good. Sleep last night was good. She denies any current suicidal ideation and denies hallucinations. Changes Seroquel changed from 300mg in the AM to 100mg QAM and continue Seroquel 300mg po QHS. REVIEW OF SYSTEMS Constitutional: Negative for weight loss ENT: Negative for stridor Respiratory: Negative for cough or hemoptysis All other systems reviewed and are negative MENTAL STATUS EXAMINATION General Appearance and Behavior: Age appropriate, good hygiene, wearing appropriate clothes, poor eye contact, irritable Cooperation: cooperative Mood: "Tired" Affect and affective range: congruent with mood Thought Process: Goal directed Thought Content: Denies hallucinations Speech: normal tone and pace Suicidal Ideation: Denies SI Homicidal Ideation: Denies Hallucinations: Denies Delusions: None elicited Impulse Control: Impaired Insight and Judgment: Limited insight and judgment, Memory: Limited Attention: Distractible Orientation: Alert, oriented Assessment (1) Schizophrenia Current Visit: Yes Status: Acute Treatment Plan Patient admitted for inpatient psychiatric evaluation, medication adjustment and close monitoring The patient's behavior, mood, sleep and appetite will be closely monitored. Patient enrolled in individual and group therapeutic sessions and encouraged to attend. Patient provided with a safe and structured environment. Patient's physical health needs will be addressed by the Hospitalist. Hospitalist Consulted Labs including CBC, CMP, Lipid profile and Hemoglobin A1C levels ordered for baseline reference Social Assessment will be completed and the Primer Powder Blender Wet will work with patient and family to ensure a suitable and safe disposition Medication adjustment will be made as clinically indicated Continue Prozac 30mg po daily Start Seroquel 100mg po QAM Continue Seroquel 300mg po QHS Continue home meds. Usual Wellness Lutheran/Preservation: - Start Trazodone 50 mg po QHS & 50 mg po QHS PRN between 10 PM & 2 AM for insomnia - Start Melatonin 5 mg po QHS to promote circadian rhythm The patient agreed on the treatment plan, understood the risk, benefit, alternative treatment, potential consequence of no treatment, and gave informed consent. Estimated days: 1 Post hospital care: primary care provider, psychiatric provider Case staffed with Dr. Mason Medications and Allergies Mental Status Exam - Vital signs Last Vital Signs Temp 98.2 F 09/08/20 00:41 Pulse 87 09/08/20 00:41 Resp 16 09/08/20 00:41 BP 132/95 09/08/20 00:41 Pulse Ox 95 09/08/20 00:41
[2020-09-08] MEDS: metFORMIN 500 MG TAB PO SCH ×2 (10:48→17:36)
[2020-09-08] MEDS: VALPROIC ACID 250 MG CAP PO SCH ×3 (10:49→21:00)
[2020-09-08] MEDS: FLUoxetine 10 MG TAB PO SCH (10:49)
[2020-09-08] MEDS: GLIMEPIRIDE 2 MG TAB PO SCH (10:49)
[2020-09-08] MEDS: QUEtiapine 100 MG TAB PO SCH ×2 (10:49→21:55)
[2020-09-08] MEDS: INSULIN LISPRO 100 UNIT/ML SUB-Q SCH ×3 (10:51→17:00)
[2020-09-08] MEDS: traZODone 50 MG TAB PO SCH (21:55)
[2020-09-08] MEDS ORDERED: ZIPRASIDONE MESYLATE 20 MG VIAL IM ONE (23:49)
[2020-09-09] MEDS: INSULIN LISPRO 100 UNIT/ML SUB-Q SCH ×5 (08:10→21:06)
--- NOTE | 2020-09-09 08:17 | Progress Note ---
Subjective Date of service: 09/09/20 Principal diagnosis: Schizophrenia Subjective Comment: 09/05/2020: The patient was seen today, she is lying in bed awake. She has improved significantly. She says she can't go back to that other place because "it wasn't a good place." She says she's worried. The patient denies SI/HI or hallucinations of any kind. Staff at times have observed the patient responding to internal stimuli. Will continue to treat and monitor the patient to ensue a safe discharge. Spoke with the SW about the patient's concerns. She says she is working on finding the patient a safe place to discharge. 09/06/2020: I interviewed the patient this morning. Medical records reviewed and patient's progress was discussed with unit staff. Nursing staff reports that "Last evening the patient spent part of her time in the activity room until she was frightened by a peer. She spent the rest of her time in her room. She has been pleasant and cooperative throughout the evening. She talks about stopping her medications and feeling out of control. She denies si/hi/ah/vh. Her appetite is good and she was medication compliant. Overnight the patient rested quietly. She slept 8 hours. Will continue to monitor patient for safety." In my interview with the patient this morning, the patient reports mood as "so so". Patient is complaining about her medications" it makes me sleepy all day." Patient states she is doing better and reports that therapy is helpful for her. Appetite is good. Sleep last night was good. She denies any current suicidal/homicidal ideation and denies hallucinations. No changes made to treatment plan today. 09/07/2020: I interviewed the patient this morning. Medical records reviewed and patient's progress was discussed with unit staff. Nursing staff reports that patient " Last evening the patient spent most of her time in her room due to conflict with a female peer. She was pleasant and cooperative all evening. She denies si/hi/ah/vh. Her appetite is good and she is medication compliant. Overnight the patient slept 9 hours. Will continue to monitor patient for safety. In my interview with the patient this morning, the patient was seen in the activity room. She reports mood as "calm". Appetite is good. Sleep last night was good. She denies any current suicidal ideation and denies hallucinations. No changes to the treatment plan today. 09/08/2020: I interviewed the patient this morning. Medical records reviewed and patient's progress was discussed with unit staff. Nursing staff reports that patient "Last evening the patient interacted appropriately with others. She talked about wanting a safe place to live when she leaves the hospital. She reports that that is one of her major stressors. She denies si/hi/ah/vh. Her appetite is good. Overnight the patient rested quietly. She slept 8 hours. Will continue to monitor patient for safety." In my interview with the patient this morning, the patient was seen in her room sitting on the bed. She reports that she feels better but continues to complain about her medications " I think I'm getting too much." She reports feeling tired. She reports stressors as " I am worried about what will happen when I leave here, I am ready to work with them." Appetite is good. Sleep last night was good. She denies any current suicidal ideation and denies hallucinations. Changes Seroquel changed from 300mg in the AM to 100mg QAM and continue Seroquel 300mg po QHS. 09/09/2020: The patient was seen in the activity room. In my interview with the patient, she reports mood as " so so." Per nurse, the patient was agitated last night and was given Geodon 20mg IM. When the patient was asked about what happened last night she states" " I'm not sure. I'm just trying to do the best I can." She denies any current suicidal/homicidal ideation and denies hallucinations. No changes to the treatment plan today. REVIEW OF SYSTEMS Constitutional: Negative for weight loss ENT: Negative for stridor Respiratory: Negative for cough or hemoptysis All other systems reviewed and are negative MENTAL STATUS EXAMINATION General Appearance and Behavior: Age appropriate, good hygiene, wearing appropriate clothes, poor eye contact, irritable Cooperation: cooperative Mood: "so so" Affect and affective range: congruent with mood Thought Process: Goal directed Thought Content: Denies hallucinations Speech: normal tone and pace Suicidal Ideation: Denies SI Homicidal Ideation: Denies Hallucinations: Denies Delusions: None elicited Impulse Control: Impaired Insight and Judgment: Limited insight and judgment, Memory: Limited Attention: Distractible Orientation: Alert, oriented Assessment (1) Schizophrenia Current Visit: Yes Status: Acute Treatment Plan Patient admitted for inpatient psychiatric evaluation, medication adjustment and close monitoring The patient's behavior, mood, sleep and appetite will be closely monitored. Patient enrolled in individual and group therapeutic sessions and encouraged to attend. Patient provided with a safe and structured environment. Patient's physical health needs will be addressed by the Hospitalist. Hospitalist Consulted Labs including CBC, CMP, Lipid profile and Hemoglobin A1C levels ordered for baseline reference Social Assessment will be completed and the Shift Engineer will work with patient and family to ensure a suitable and safe disposition Medication adjustment will be made as clinically indicated Continue Prozac 30mg po daily Continue Seroquel 100mg po QAM Continue Seroquel 300mg po QHS Continue home meds. Usual Wellness Latter-Day/Preservation: - Start Trazodone 50 mg po QHS & 50 mg po QHS PRN between 10 PM & 2 AM for insomnia - Start Melatonin 5 mg po QHS to promote circadian rhythm The patient agreed on the treatment plan, understood the risk, benefit, alternative treatment, potential consequence of no treatment, and gave informed consent. Estimated days: 1 Post hospital care: primary care provider, psychiatric provider Case staffed with Dr. Mason Medications and Allergies Medications and Allergies Allergies Allergy/AdvReac Type Severity Reaction Status Date / Time haloperidol [From Haldol] Allergy Unknown Verified 07/10/20 01:32 Home Medications Medication Instructions Recorded Confirmed Last Taken Type metFORMIN [Glucophage] 500 mg PO BIDDIAB #60 tablet 07/22/20 09/02/20 Unknown Rx FLUoxetine [PROzac] 30 mg PO QDAY #90 tablet 09/04/20 Unknown Rx QUEtiapine [SEROquel] 300 mg PO BID #90 tablet 09/04/20 Unknown Rx Valproic Acid [Depakene] 500 mg PO TID #120 capsule 09/04/20 Unknown Rx traZODone [Desyrel] 50 mg PO QHS #30 09/04/20 Unknown Rx Active Meds: Active Medications Fluoxetine HCl (Fluoxetine 10 Mg Tab) 30 mg PO QDAY [facility] Last Admin: 09/08/20 10:49 Dose: 30 mg Documented by: Glimepiride (Glimepiride 2 Mg Tab) 2 mg PO QDDIAB [facility] Last Admin: 09/08/20 10:49 Dose: 2 mg Documented by: Insulin Human Lispro (Insulin Lispro 100 Unit/Ml) 0 unit SUB-Q ACHS [facility]; Protocol Last Admin: 09/09/20 08:10 Dose: 2 unit Documented by: Metformin HCl (Metformin 500 Mg Tab) 500 mg PO BIDDIAB [facility] Last Admin: 09/08/20 17:36 Dose: 500 mg Documented by: Quetiapine Fumarate (Quetiapine 100 Mg Tab) 100 mg PO QAM [facility] Last Admin: 09/08/20 10:49 Dose: 100 mg Documented by: Quetiapine Fumarate (Quetiapine 100 Mg Tab) 300 mg PO QHS [facility] Last Admin: 09/08/20 21:55 Dose: 300 mg Documented by: Trazodone HCl (Trazodone 50 Mg Tab) 50 mg PO QHS [facility] Last Admin: 09/08/20 21:55 Dose: 50 mg Documented by: Valproic Acid (Valproic Acid 250 Mg Cap) 500 mg PO TID [facility] Last Admin: 09/08/20 21:00 Dose: 500 mg Documented by: Results - Results Labs/Vitals: Laboratory Last Values WBC 4.7 K/mm3 (4.5-11.0) 09/02/20 15:22 RBC 4.71 M/mm3 (3.65-5.03) 09/02/20 15:22 Hgb 13.1 gm/dl (10.1-14.3) 09/02/20 15:22 Hct 38.8 % (30.3-42.9) 09/02/20 15:22 MCV 83 fl (79-97) 09/02/20 15:22 MCH 28 pg (28-32) 09/02/20 15:22 MCHC 34 % (30-34) 09/02/20 15:22 RDW 13.8 % (13.2-15.2) 09/02/20 15:22 Plt Count 198 K/mm3 (140-440) 09/02/20 15:22 Lymph % (Auto) 44.2 % (13.4-35.0) H 09/02/20 15:22 [place] % (Auto) 5.1 % (0.0-7.3) 09/02/20 15:22 Eos % (Auto) 0.9 % (0.0-4.3) 09/02/20 15:22 Baso % (Auto) 0.6 % (0.0-1.8) 09/02/20 15:22 Lymph # (Auto) 2.1 K/mm3 (1.2-5.4) 09/02/20 15:22 [place] # (Auto) 0.2 K/mm3 (0.0-0.8) 09/02/20 15:22 Eos # (Auto) 0.0 K/mm3 (0.0-0.4) 09/02/20 15:22 Baso # (Auto) 0.0 K/mm3 (0.0-0.1) 09/02/20 15:22 Seg Neutrophils % 49.2 % (40.0-70.0) 09/02/20 15:22 Seg Neutrophils # 2.3 K/mm3 (1.8-7.7) 09/02/20 15:22 Sodium 138 mmol/L (137-145) 09/02/20 15:22 Potassium 4.3 mmol/L (3.6-5.0) 09/02/20 15:22 Chloride 104.6 mmol/L (98-107) 09/02/20 15:22 Carbon Dioxide 23 mmol/L (22-30) 09/02/20 15:22 Anion Gap 15 mmol/L 09/02/20 15:22 BUN 11 mg/dL (7-17) 09/02/20 15:22 Creatinine 0.6 mg/dL (0.6-1.2) 09/02/20 15:22 Estimated GFR > 60 ml/min 09/02/20 15:22 BUN/Creatinine Ratio 18 % 09/02/20 15:22 Glucose 206 mg/dL (65-100) H 09/02/20 15:22 POC Glucose 168 mg/dL (70-105) H 09/09/20 07:10 Hemoglobin A1c 10.7 % (4-6) H 09/02/20 15:22 Calcium 11.6 mg/dL (8.4-10.2) H 09/02/20 15:22 Total Bilirubin 0.50 mg/dL (0.1-1.2) 09/02/20 15:22 AST 26 units/L (5-40) 09/02/20 15:22 ALT 38 units/L (7-56) 09/02/20 15:22 Alkaline Phosphatase 103 units/L (35-129) 09/02/20 15:22 Total Protein 6.2 g/dL (6.3-8.2) L 09/02/20 15:22 Albumin 4.0 g/dL (3.9-5) 09/02/20 15:22 Albumin/Globulin Ratio 1.8 % 09/02/20 15:22 Triglycerides 198 mg/dL (2-149) H 09/02/20 15:22 Cholesterol 233 mg/dL (50-199) H 09/02/20 15:22 LDL Cholesterol Direct 152 mg/dL (50-130) H 09/02/20 15:22 HDL Cholesterol 61 mg/dL (40-59) H 09/02/20 15:22 Cholesterol/HDL Ratio 3.81 % 09/02/20 15:22 TSH 0.256 mlU/mL (0.270-4.200) L 09/02/20 15:22 Valproic Acid 87.8 ug/mL (50-100) 09/03/20 19:54 Last Vital Signs Temp 98.4 F 09/08/20 08:44 Pulse 86 09/08/20 08:44 Resp 20 09/08/20 08:44 BP 107/73 09/08/20 08:44 Pulse Ox 99 09/08/20 08:44
[2020-09-09] MEDS: FLUoxetine 10 MG TAB PO SCH (09:22)
[2020-09-09] MEDS: QUEtiapine 100 MG TAB PO SCH ×2 (09:22→21:02)
[2020-09-09] MEDS: GLIMEPIRIDE 2 MG TAB PO SCH (09:22)
[2020-09-09] MEDS: VALPROIC ACID 250 MG CAP PO SCH ×3 (09:22→21:01)
[2020-09-09] MEDS: metFORMIN 500 MG TAB PO SCH ×2 (09:22→17:12)
[2020-09-09] MEDS: traZODone 50 MG TAB PO SCH (21:02)
[2020-09-10] MEDS: INSULIN LISPRO 100 UNIT/ML SUB-Q SCH ×4 (07:37→21:10)
--- NOTE | 2020-09-10 08:04 | Progress Note ---
Subjective Date of service: 09/10/20 Principal diagnosis: Schizophrenia Subjective Comment: 09/05/2020: The patient was seen today, she is lying in bed awake. She has improved significantly. She says she can't go back to that other place because "it wasn't a good place." She says she's worried. The patient denies SI/HI or hallucinations of any kind. Staff at times have observed the patient responding to internal stimuli. Will continue to treat and monitor the patient to ensue a safe discharge. Spoke with the SW about the patient's concerns. She says she is working on finding the patient a safe place to discharge. 09/06/2020: I interviewed the patient this morning. Medical records reviewed and patient's progress was discussed with unit staff. Nursing staff reports that "Last evening the patient spent part of her time in the activity room until she was frightened by a peer. She spent the rest of her time in her room. She has been pleasant and cooperative throughout the evening. She talks about stopping her medications and feeling out of control. She denies si/hi/ah/vh. Her appetite is good and she was medication compliant. Overnight the patient rested quietly. She slept 8 hours. Will continue to monitor patient for safety." In my interview with the patient this morning, the patient reports mood as "so so". Patient is complaining about her medications" it makes me sleepy all day." Patient states she is doing better and reports that therapy is helpful for her. Appetite is good. Sleep last night was good. She denies any current suicidal/homicidal ideation and denies hallucinations. No changes made to treatment plan today. 09/07/2020: I interviewed the patient this morning. Medical records reviewed and patient's progress was discussed with unit staff. Nursing staff reports that patient " Last evening the patient spent most of her time in her room due to conflict with a female peer. She was pleasant and cooperative all evening. She denies si/hi/ah/vh. Her appetite is good and she is medication compliant. Overnight the patient slept 9 hours. Will continue to monitor patient for safety. In my interview with the patient this morning, the patient was seen in the activity room. She reports mood as "calm". Appetite is good. Sleep last night was good. She denies any current suicidal ideation and denies hallucinations. No changes to the treatment plan today. 09/08/2020: I interviewed the patient this morning. Medical records reviewed and patient's progress was discussed with unit staff. Nursing staff reports that patient "Last evening the patient interacted appropriately with others. She talked about wanting a safe place to live when she leaves the hospital. She reports that that is one of her major stressors. She denies si/hi/ah/vh. Her appetite is good. Overnight the patient rested quietly. She slept 8 hours. Will continue to monitor patient for safety." In my interview with the patient this morning, the patient was seen in her room sitting on the bed. She reports that she feels better but continues to complain about her medications " I think I'm getting too much." She reports feeling tired. She reports stressors as " I am worried about what will happen when I leave here, I am ready to work with them." Appetite is good. Sleep last night was good. She denies any current suicidal ideation and denies hallucinations. Changes Seroquel changed from 300mg in the AM to 100mg QAM and continue Seroquel 300mg po QHS. 09/09/2020: The patient was seen in the activity room. In my interview with the patient, she reports mood as " so so." Per nurse, the patient was agitated last night and was given Geodon 20mg IM. When the patient was asked about what happened last night she states" " I'm not sure. I'm just trying to do the best I can." She denies any current suicidal/homicidal ideation and denies hallucinations. No changes to the treatment plan today. 09/10/2020: The patient was seen eating breakfast in the activity room. She reports that she is doing better; states mood as "positive." She reports sleep and appetite as good. She denies any current suicidal ideation and denies nice ucinations. Per nurse, the patient had a quiet night. No changes made to the treatment plan today. REVIEW OF SYSTEMS Constitutional: Negative for weight loss ENT: Negative for stridor Respiratory: Negative for cough or hemoptysis All other systems reviewed and are negative MENTAL STATUS EXAMINATION General Appearance and Behavior: Age appropriate, good hygiene, wearing appropriate clothes, poor eye contact, irritable Cooperation: cooperative Mood: "Positive" Affect and affective range: congruent with mood Thought Process: Goal directed Thought Content: Denies hallucinations Speech: normal tone and pace Suicidal Ideation: Denies SI Homicidal Ideation: Denies Hallucinations: Denies Delusions: None elicited Impulse Control: Questionable Insight and Judgment: Limited insight and judgment, Memory: Limited Attention: Distractible Orientation: Alert, oriented Assessment (1) Schizophrenia Current Visit: Yes Status: Acute Treatment Plan Patient admitted for inpatient psychiatric evaluation, medication adjustment and close monitoring The patient's behavior, mood, sleep and appetite will be closely monitored. Patient enrolled in individual and group therapeutic sessions and encouraged to attend. Patient provided with a safe and structured environment. Patient's physical health needs will be addressed by the Hospitalist. Hospitalist Consulted Labs including CBC, CMP, Lipid profile and Hemoglobin A1C levels ordered for baseline reference Social Assessment will be completed and the Telecommunications Equipment Installer will work with patient and family to ensure a suitable and safe disposition Medication adjustment will be made as clinically indicated No changes Continue Prozac 30mg po daily Continue Seroquel 100mg po QAM Continue Seroquel 300mg po QHS Continue home meds. Usual Wellness Buddhism/Preservation: - Start Trazodone 50 mg po QHS & 50 mg po QHS PRN between 10 PM & 2 AM for insomnia - Start Melatonin 5 mg po QHS to promote circadian rhythm The patient agreed on the treatment plan, understood the risk, benefit, alternative treatment, potential consequence of no treatment, and gave informed consent. Estimated days: 1 Post hospital care: primary care provider, psychiatric provider Case staffed with Dr. Mason Medications and Allergies Allergies Allergy/AdvReac Type Severity Reaction Status Date / Time haloperidol [From Haldol] Allergy Unknown Verified 07/10/20 01:32 Home Medications Medication Instructions Recorded Confirmed Last Taken Type metFORMIN [Glucophage] 500 mg PO BIDDIAB #60 tablet 07/22/20 09/02/20 Unknown Rx FLUoxetine [PROzac] 30 mg PO QDAY #90 tablet 09/04/20 Unknown Rx QUEtiapine [SEROquel] 300 mg PO BID #90 tablet 09/04/20 Unknown Rx Valproic Acid [Depakene] 500 mg PO TID #120 capsule 09/04/20 Unknown Rx traZODone [Desyrel] 50 mg PO QHS #30 09/04/20 Unknown Rx Active Meds: Active Medications Fluoxetine HCl (Fluoxetine 10 Mg Tab) 30 mg PO QDAY [facility] Last Admin: 09/09/20 09:22 Dose: 30 mg Documented by: Glimepiride (Glimepiride 2 Mg Tab) 2 mg PO QDDIAB [facility] Last Admin: 09/09/20 09:22 Dose: 2 mg Documented by: Insulin Human Lispro (Insulin Lispro 100 Unit/Ml) 0 unit SUB-Q ACHS [facility]; Protocol Last Admin: 09/10/20 07:37 Dose: Not Given Documented by: Metformin HCl (Metformin 500 Mg Tab) 500 mg PO BIDDIAB [facility] Last Admin: 09/09/20 17:12 Dose: 500 mg Documented by: Quetiapine Fumarate (Quetiapine 100 Mg Tab) 100 mg PO QAM [facility] Last Admin: 09/09/20 09:22 Dose: 100 mg Documented by: Quetiapine Fumarate (Quetiapine 100 Mg Tab) 300 mg PO QHS [facility] Last Admin: 09/09/20 21:02 Dose: 300 mg Documented by: Trazodone HCl (Trazodone 50 Mg Tab) 50 mg PO QHS [facility] Last Admin: 09/09/20 21:02 Dose: 50 mg Documented by: Valproic Acid (Valproic Acid 250 Mg Cap) 500 mg PO TID [facility] Last Admin: 09/09/20 21:01 Dose: 500 mg Documented by: Results - Results Labs/Vitals: Laboratory Last Values WBC 4.7 K/mm3 (4.5-11.0) 09/02/20 15:22 RBC 4.71 M/mm3 (3.65-5.03) 09/02/20 15:22 Hgb 13.1 gm/dl (10.1-14.3) 09/02/20 15:22 Hct 38.8 % (30.3-42.9) 09/02/20 15:22 MCV 83 fl (79-97) 09/02/20 15:22 MCH 28 pg (28-32) 09/02/20 15:22 MCHC 34 % (30-34) 09/02/20 15:22 RDW 13.8 % (13.2-15.2) 09/02/20 15:22 Plt Count 198 K/mm3 (140-440) 09/02/20 15:22 Lymph % (Auto) 44.2 % (13.4-35.0) H 09/02/20 15:22 [place] % (Auto) 5.1 % (0.0-7.3) 09/02/20 15:22 Eos % (Auto) 0.9 % (0.0-4.3) 09/02/20 15:22 Baso % (Auto) 0.6 % (0.0-1.8) 09/02/20 15:22 Lymph # (Auto) 2.1 K/mm3 (1.2-5.4) 09/02/20 15:22 [place] # (Auto) 0.2 K/mm3 (0.0-0.8) 09/02/20 15:22 Eos # (Auto) 0.0 K/mm3 (0.0-0.4) 09/02/20 15:22 Baso # (Auto) 0.0 K/mm3 (0.0-0.1) 09/02/20 15:22 Seg Neutrophils % 49.2 % (40.0-70.0) 09/02/20 15:22 Seg Neutrophils # 2.3 K/mm3 (1.8-7.7) 09/02/20 15:22 Sodium 138 mmol/L (137-145) 09/02/20 15:22 Potassium 4.3 mmol/L (3.6-5.0) 09/02/20 15:22 Chloride 104.6 mmol/L (98-107) 09/02/20 15:22 Carbon Dioxide 23 mmol/L (22-30) 09/02/20 15:22 Anion Gap 15 mmol/L 09/02/20 15:22 BUN 11 mg/dL (7-17) 09/02/20 15:22 Creatinine 0.6 mg/dL (0.6-1.2) 09/02/20 15:22 Estimated GFR > 60 ml/min 09/02/20 15:22 BUN/Creatinine Ratio 18 % 09/02/20 15:22 Glucose 206 mg/dL (65-100) H 09/02/20 15:22 POC Glucose 120 mg/dL (70-105) H 09/10/20 06:16 Hemoglobin A1c 10.7 % (4-6) H 09/02/20 15:22 Calcium 11.6 mg/dL (8.4-10.2) H 09/02/20 15:22 Total Bilirubin 0.50 mg/dL (0.1-1.2) 09/02/20 15:22 AST 26 units/L (5-40) 09/02/20 15:22 ALT 38 units/L (7-56) 09/02/20 15:22 Alkaline Phosphatase 103 units/L (35-129) 09/02/20 15:22 Total Protein 6.2 g/dL (6.3-8.2) L 09/02/20 15:22 Albumin 4.0 g/dL (3.9-5) 09/02/20 15:22 Albumin/Globulin Ratio 1.8 % 09/02/20 15:22 Triglycerides 198 mg/dL (2-149) H 09/02/20 15:22 Cholesterol 233 mg/dL (50-199) H 09/02/20 15:22 LDL Cholesterol Direct 152 mg/dL (50-130) H 09/02/20 15:22 HDL Cholesterol 61 mg/dL (40-59) H 09/02/20 15:22 Cholesterol/HDL Ratio 3.81 % 09/02/20 15:22 TSH 0.256 mlU/mL (0.270-4.200) L 09/02/20 15:22 Valproic Acid 87.8 ug/mL (50-100) 09/03/20 19:54 Last Vital Signs Temp 98.6 F 09/09/20 20:04 Pulse 95 H 09/09/20 20:04 Resp 18 09/09/20 20:04 BP 133/87 09/09/20 20:04 Pulse Ox 97 09/09/20 20:04
[2020-09-10] MEDS: metFORMIN 500 MG TAB PO SCH ×2 (08:08→16:50)
[2020-09-10] MEDS: GLIMEPIRIDE 2 MG TAB PO SCH (08:08)
[2020-09-10] MEDS: VALPROIC ACID 250 MG CAP PO SCH ×3 (08:08→21:09)
[2020-09-10] MEDS: QUEtiapine 100 MG TAB PO SCH ×2 (09:45→21:10)
[2020-09-10] MEDS: FLUoxetine 10 MG TAB PO SCH (09:46)
[2020-09-10] MEDS: traZODone 50 MG TAB PO SCH (21:10)
[2020-09-11] MEDS: INSULIN LISPRO 100 UNIT/ML SUB-Q SCH ×2 (07:30→12:15)
--- NOTE | 2020-09-11 08:38 | Progress Note ---
Subjective Date of service: 09/11/20 Principal diagnosis: Schizophrenia Subjective Comment: 09/05/2020: The patient was seen today, she is lying in bed awake. She has improved significantly. She says she can't go back to that other place because "it wasn't a good place." She says she's worried. The patient denies SI/HI or hallucinations of any kind. Staff at times have observed the patient responding to internal stimuli. Will continue to treat and monitor the patient to ensue a safe discharge. Spoke with the SW about the patient's concerns. She says she is working on finding the patient a safe place to discharge. 09/06/2020: I interviewed the patient this morning. Medical records reviewed and patient's progress was discussed with unit staff. Nursing staff reports that "Last evening the patient spent part of her time in the activity room until she was frightened by a peer. She spent the rest of her time in her room. She has been pleasant and cooperative throughout the evening. She talks about stopping her medications and feeling out of control. She denies si/hi/ah/vh. Her appetite is good and she was medication compliant. Overnight the patient rested quietly. She slept 8 hours. Will continue to monitor patient for safety." In my interview with the patient this morning, the patient reports mood as "so so". Patient is complaining about her medications" it makes me sleepy all day." Patient states she is doing better and reports that therapy is helpful for her. Appetite is good. Sleep last night was good. She denies any current suicidal/homicidal ideation and denies hallucinations. No changes made to treatment plan today. 09/07/2020: I interviewed the patient this morning. Medical records reviewed and patient's progress was discussed with unit staff. Nursing staff reports that patient " Last evening the patient spent most of her time in her room due to conflict with a female peer. She was pleasant and cooperative all evening. She denies si/hi/ah/vh. Her appetite is good and she is medication compliant. Overnight the patient slept 9 hours. Will continue to monitor patient for safety. In my interview with the patient this morning, the patient was seen in the activity room. She reports mood as "calm". Appetite is good. Sleep last night was good. She denies any current suicidal ideation and denies hallucinations. No changes to the treatment plan today. 09/08/2020: I interviewed the patient this morning. Medical records reviewed and patient's progress was discussed with unit staff. Nursing staff reports that patient "Last evening the patient interacted appropriately with others. She talked about wanting a safe place to live when she leaves the hospital. She reports that that is one of her major stressors. She denies si/hi/ah/vh. Her appetite is good. Overnight the patient rested quietly. She slept 8 hours. Will continue to monitor patient for safety." In my interview with the patient this morning, the patient was seen in her room sitting on the bed. She reports that she feels better but continues to complain about her medications " I think I'm getting too much." She reports feeling tired. She reports stressors as " I am worried about what will happen when I leave here, I am ready to work with them." Appetite is good. Sleep last night was good. She denies any current suicidal ideation and denies hallucinations. Changes Seroquel changed from 300mg in the AM to 100mg QAM and continue Seroquel 300mg po QHS. 09/09/2020: The patient was seen in the activity room. In my interview with the patient, she reports mood as " so so." Per nurse, the patient was agitated last night and was given Geodon 20mg IM. When the patient was asked about what happened last night she states" " I'm not sure. I'm just trying to do the best I can." She denies any current suicidal/homicidal ideation and denies hallucinations. No changes to the treatment plan today. 09/10/2020: The patient was seen eating breakfast in the activity room. She reports that she is doing better; states mood as "positive." She reports sleep and appetite as good. She denies any current suicidal ideation and denies nice ucinations. Per nurse, the patient had a quiet night. No changes made to the treatment plan today. 09/11/2020: The patient was seen in the activity room. She reports she is doing "ok". She states " I'm hoping for a better day." She reports sleep and appetite as good. The patient denies any current suicidal/homicidal ideation and denies hallucinations. per nurse, the patient had a quiet night. No changes made today. REVIEW OF SYSTEMS Constitutional: Negative for weight loss ENT: Negative for stridor Respiratory: Negative for cough or hemoptysis All other systems reviewed and are negative MENTAL STATUS EXAMINATION General Appearance and Behavior: Age appropriate, good hygiene, wearing leslee ropriate clothes, poor eye contact, irritable Cooperation: cooperative Mood: "Ok" Affect and affective range: congruent with mood Thought Process: Goal directed Thought Content: Denies hallucinations Speech: normal tone and pace Suicidal Ideation: Denies SI Homicidal Ideation: Denies Hallucinations: Denies Delusions: None elicited Impulse Control: Questionable Insight and Judgment: Limited insight and judgment, Memory: Limited Attention: Distractible Orientation: Alert, oriented Assessment (1) Schizophrenia Current Visit: Yes Status: Acute Treatment Plan Patient admitted for inpatient psychiatric evaluation, medication adjustment and close monitoring The patient's behavior, mood, sleep and appetite will be closely monitored. Patient enrolled in individual and group therapeutic sessions and encouraged to attend. Patient provided with a safe and structured environment. Patient's physical health needs will be addressed by the Hospitalist. Hospitalist Consulted Labs including CBC, CMP, Lipid profile and Hemoglobin A1C levels ordered for baseline reference Social Assessment will be completed and the Circulation Director will work with patient and family to ensure a suitable and safe disposition Medication adjustment will be made as clinically indicated No changes Continue Prozac 30mg po daily Continue Seroquel 100mg po QAM Continue Seroquel 300mg po QHS Continue home meds. Usual Wellness Christianity/Preservation: - Start Trazodone 50 mg po QHS & 50 mg po QHS PRN between 10 PM & 2 AM for insomnia - Start Melatonin 5 mg po QHS to promote circadian rhythm The patient agreed on the treatment plan, understood the risk, benefit, alternative treatment, potential consequence of no treatment, and gave informed consent. Estimated days: 1 Post hospital care: primary care provider, psychiatric provider Case staffed with Dr. Mason Medications and Allergies Medications and Allergies Allergies Allergy/AdvReac Type Severity Reaction Status Date / Time haloperidol [From Haldol] Allergy Unknown Verified 07/10/20 01:32 Home Medications Medication Instructions Recorded Confirmed Last Taken Type metFORMIN [Glucophage] 500 mg PO BIDDIAB #60 tablet 07/22/20 09/02/20 Unknown Rx FLUoxetine [PROzac] 30 mg PO QDAY #90 tablet 09/04/20 Unknown Rx QUEtiapine [SEROquel] 300 mg PO BID #90 tablet 09/04/20 Unknown Rx Valproic Acid [Depakene] 500 mg PO TID #120 capsule 09/04/20 Unknown Rx traZODone [Desyrel] 50 mg PO QHS #30 09/04/20 Unknown Rx Active Meds: Active Medications Fluoxetine HCl (Fluoxetine 10 Mg Tab) 30 mg PO QDAY [facility] Last Admin: 09/10/20 09:46 Dose: 30 mg Documented by: Glimepiride (Glimepiride 2 Mg Tab) 2 mg PO QDDIAB [facility] Last Admin: 09/10/20 08:08 Dose: 2 mg Documented by: Insulin Human Lispro (Insulin Lispro 100 Unit/Ml) 0 unit SUB-Q ACHS [facility]; Protocol Last Admin: 09/10/20 21:10 Dose: Not Given Documented by: Metformin HCl (Metformin 500 Mg Tab) 500 mg PO BIDDIAB [facility] Last Admin: 09/10/20 16:50 Dose: 500 mg Documented by: Quetiapine Fumarate (Qu[facility]apine 100 Mg Tab) [facility] Admin: 09/10/20 09:45 Dose: 100 mg Documented by: Quetiapine Fumarate (Quetiapine 100 Mg Tab) 300 mg PO QHS [facility] Last Admin: 09/10/20 21:10 Dose: 300 mg Documented by: Trazodone HCl (Trazodone 50 Mg Tab) 50 mg PO QHS [facility] Last Admin: 09/10/20 21:10 Dose: 50 mg Documented by: Valproic Acid (Valproic Acid 250 Mg Cap) 500 mg PO TID [facility] Last Admin: 09/10/20 21:09 Dose: 500 mg Documented by: Results - Results Labs/Vitals: Laboratory Last Values WBC 4.7 K/mm3 (4.5-11.0) 09/02/20 15:22 RBC 4.71 M/mm3 (3.65-5.03) 09/02/20 15:22 Hgb 13.1 gm/dl (10.1-14.3) 09/02/20 15:22 Hct 38.8 % (30.3-42.9) 09/02/20 15:22 MCV 83 fl (79-97) 09/02/20 15:22 MCH 28 pg (28-32) 09/02/20 15:22 MCHC 34 % (30-34) 09/02/20 15:22 RDW 13.8 % (13.2-15.2) 09/02/20 15:22 Plt Count 198 K/mm3 (140-440) 09/02/20 15:22 Lymph % (Auto) 44.2 % (13.4-35.0) H 09/02/20 15:22 [place] % (Auto) 5.1 % (0.0-7.3) 09/02/20 15:22 Eos % (Auto) 0.9 % (0.0-4.3) 09/02/20 15:22 Baso % (Auto) 0.6 % (0.0-1.8) 09/02/20 15:22 Lymph # (Auto) 2.1 K/mm3 (1.2-5.4) 09/02/20 15:22 [place] # (Auto) 0.2 K/mm3 (0.0-0.8) 09/02/20 15:22 Eos # (Auto) 0.0 K/mm3 (0.0-0.4) 09/02/20 15:22 Baso # (Auto) 0.0 K/mm3 (0.0-0.1) 09/02/20 15:22 Seg Neutrophils % 49.2 % (40.0-70.0) 09/02/20 15:22 Seg Neutrophils # 2.3 K/mm3 (1.8-7.7) 09/02/20 15:22 Sodium 138 mmol/L (137-145) 09/02/20 15:22 Potassium 4.3 mmol/L (3.6-5.0) 09/02/20 15:22 Chloride 104.6 mmol/L (98-107) 09/02/20 15:22 Carbon Dioxide 23 mmol/L (22-30) 09/02/20 15:22 Anion Gap 15 mmol/L 09/02/20 15:22 BUN 11 mg/dL (7-17) 09/02/20 15:22 Creatinine 0.6 mg/dL (0.6-1.2) 09/02/20 15:22 Estimated GFR > 60 ml/min 09/02/20 15:22 BUN/Creatinine Ratio 18 % 09/02/20 15:22 Glucose 206 mg/dL (65-100) H 09/02/20 15:22 POC Glucose 125 mg/dL (70-105) H 09/11/20 07:19 Hemoglobin A1c 10.7 % (4-6) H 09/02/20 15:22 Calcium 11.6 mg/dL (8.4-10.2) H 09/02/20 15:22 Total Bilirubin 0.50 mg/dL (0.1-1.2) 09/02/20 15:22 AST 26 units/L (5-40) 09/02/20 15:22 ALT 38 units/L (7-56) 09/02/20 15:22 Alkaline Phosphatase 103 units/L (35-129) 09/02/20 15:22 Total Protein 6.2 g/dL (6.3-8.2) L 09/02/20 15:22 Albumin 4.0 g/dL (3.9-5) 09/02/20 15:22 Albumin/Globulin Ratio 1.8 % 09/02/20 15:22 Triglycerides 198 mg/dL (2-149) H 09/02/20 15:22 Cholesterol 233 mg/dL (50-199) H 09/02/20 15:22 LDL Cholesterol Direct 152 mg/dL (50-130) H 09/02/20 15:22 HDL Cholesterol 61 mg/dL (40-59) H 09/02/20 15:22 Cholesterol/HDL Ratio 3.81 % 09/02/20 15:22 TSH 0.256 mlU/mL (0.270-4.200) L 09/02/20 15:22 Valproic Acid 87.8 ug/mL (50-100) 09/03/20 19:54 Last Vital Signs Temp 98.7 F 09/10/20 19:59 Pulse 85 09/10/20 19:59 Resp 16 09/10/20 19:59 BP 121/76 09/10/20 19:59 Pulse Ox 95 09/10/20 19:59
[2020-09-11 10:26] VITALS: BP 109/74
--- NOTE | 2020-09-11 10:34 | Discharge Summary ---
Providers - Providers Date of Admission: 09/01/20 17:53 Date of discharge: 09/11/20 Attending physician: JOE RAJPUT MD 09/01/20 20:32 Consult to Physician [CONS] Routine Comment: Consulting Provider: ISHA MCCARTY Physician Instructions: Reason For Exam: manage medical conditions Primary care physician: [employer] PATHOLOGY ASSISTANT Hospitalization Reason for admission: Schizophrenia Condition: Stable Hospital course: The patient was provided inpatient psychiatric treatment with safe and supportive environment, group/individual therapy, psychiatric medication, medication adjustment, adverse effect monitor, medical evaluation, medical treatment, social service assessment, social support meeting, placement asse ssment and psycho-education. The patients mood, cognition, behavior, motivation, compliance to treatment and appreciation on family/social support are improved and stabilized. At the time of discharge, the patient had no suicidal ideas, no homicidal ideas, no aggressive thoughts, no endangering behavior and no debilitating adverse effects. The patient agreed on the treatment plan, understood the risk, benefit, alternative treatment, potential consequence of no treatment, and gave informed consent. Progress Notes: 09/05/2020: The patient was seen today, she is lying in bed awake. She has improved significantly. She says she can't go back to that other place because "it wasn't a good place." She says she's worried. The patient denies SI/HI or hallucinations of any kind. Staff at times have observed the patient responding to internal stimuli. Will continue to treat and monitor the patient to ensue a safe discharge. Spoke with the about the patient's concerns. She says she is working on finding the patient a safe place to discharge. 09/06/2020: I interviewed the patient this morning. Medical records reviewed and patient's progress was discussed with unit staff. Nursing staff reports that "Last evening the patient spent part of her time in the activity room until she was frightened by a peer. She spent the rest of her time in her room. She has been pleasant and cooperative throughout the evening. She talks about stopping her medications and feeling out of control. She denies si/hi/ah/vh. Her appetite is good and she was medication compliant. Overnight the patient rested quietly. She slept 8 hours. Will continue to monitor patient for safety." In my interview with the patient this morning, the patient reports mood as "so so". Patient is complaining about her medications" it makes me sleepy all day." Patient states she is doing better and reports that therapy is helpful for her. Appetite is good. Sleep last night was good. She denies any current suicidal/homicidal ideation and denies hallucinations. No changes made to treatment plan today. 09/07/2020: I interviewed the patient this morning. Medical records reviewed and patient's progress was discussed with unit staff. Nursing staff reports that patient " Last evening the patient spent most of her time in her room due to conflict with a female peer. She was pleasant and cooperative all evening. She denies si/hi/ah/vh. Her appetite is good and she is medication compliant. Overnight the patient slept 9 hours. Will continue to monitor patient for safety. In my interview with the patient this morning, the patient was seen in the activity room. She reports mood as "calm". Appetite is good. Sleep last night was good. She denies any current suicidal ideation and denies hallucinations. No changes to the treatment plan today. 09/08/2020: I interviewed the patient this morning. Medical records reviewed and patient's progress was discussed with unit staff. Nursing staff reports that patient "Last evening the patient interacted appropriately with others. She talked about wanting a safe place to live when she leaves the hospital. She reports that that is one of her major stressors. She denies si/hi/ah/vh. Her appetite is good. Overnight the patient rested quietly. She slept 8 hours. Will continue to monitor patient for safety." In my interview with the patient this morning, the patient was seen in her room sitting on the bed. She reports that she feels better but continues to complain about her medications " I think I'm getting too much." She reports feeling tired. She reports stressors as " I am worried about what will happen when I leave here, I am ready to work with them." Appetite is good. Sleep last night was good. She denies any current suicidal ideation and denies hallucinations. Changes Seroquel changed from 300mg in the AM to 100mg QAM and continue Seroquel 300mg po QHS. 09/09/2020: The patient was seen in the activity room. In my interview with the patient, she reports mood as " so so." Per nurse, the patient was agitated last night and was given Geodon 20mg IM. When the patient was asked about what happened last night she states" " I'm not sure. I'm just trying to do the best I can." She denies any current suicidal/homicidal ideation and denies hallucinations. No changes to the treatment plan today. 09/10/2020: The patient was seen eating breakfast in the activity room. She reports that she is doing better; states mood as "positive." She reports sleep and appetite as good. She denies any current suicidal ideation and denies hallucinations. Per nurse, the patient had a quiet night. No changes made to the treatment plan today. 09/11/2020: The patient was seen in the activity room. She reports she is doing "ok". She states " I'm hoping for a better day." She reports sleep and appetite as good. The patient denies any current suicidal/homicidal ideation and denies hallucinations. per nurse, the patient had a quiet night. No changes made today. Disposition: DC-30 STILL A PATIENT Allergies/Adverse Reactions: Allergies haloperidol [From Haldol] Allergy (Verified 07/10/20 01:32) Unknown Vital Signs: Last Vital Signs Temp 97.6 F 09/11/20 07:36 Pulse 84 09/11/20 07:36 Resp 18 09/11/20 07:36 BP 109/74 09/11/20 07:36 Pulse Ox 98 09/11/20 07:36 Last Lab: Laboratory Last Values WBC 4.7 K/mm3 (4.5-11.0) 09/02/20 15: RBC 4.71 M/mm3 (3.65-5.03) 09/02/20 15:22 Hgb 13.1 gm/dl (10.1-14.3) 09/02/20 15: Hct 38.8 % (30.3-42.9) 09/02/20 15: MCV 83 fl (79-97) 09/02/20 15:22 MCH 28 pg (28-32) 09/02/20 15: MCHC 34 % (30-34) 09/02/20 15: RDW 13.8 % (13.2-15.2) 09/02/20 15:22 Plt Count 198 K/mm3 (140-440) 09/02/20 15:22 Lymph % (Auto) 44.2 % (13.4-35.0) H 09/02/20 15:22 [place] % (Auto) 5.1 % (0.0-7.3) 09/02/20 15:22 Eos % (Auto) 0.9 % (0.0-4.3) 09/02/20 15:22 Baso % (Auto) 0.6 % (0.0-1.8) 09/02/20 15:22 Lymph # (Auto) 2.1 K/mm3 (1.2-5.4) 09/02/20 15:22 [place] # (Auto) 0.2 K/mm3 (0.0-0.8) 09/02/20 15:22 Eos # (Auto) 0.0 K/mm3 (0.0-0.4) 09/02/20 15:22 Baso # (Auto) 0.0 K/mm3 (0.0-0.1) 09/02/20 15:22 Seg Neutrophils % 49.2 % (40.0-70.0) 09/02/20 15:22 Seg Neutrophils # 2.3 K/mm3 (1.8-7.7) 09/02/20 15:22 Sodium 138 mmol/L (137-145) 09/02/20 15:22 Potassium 4.3 mmol/L (3.6-5.0) 09/02/20 15:22 Chloride 104.6 mmol/L (98-107) 09/02/20 15:22 Carbon Dioxide 23 mmol/L (22-30) 09/02/20 15:22 Anion Gap 15 mmol/L 09/02/20 15:22 BUN 11 mg/dL (7-17) 09/02/20 15:22 Creatinine 0.6 mg/dL (0.6-1.2) 09/02/20 15:22 Estimated GFR > 60 ml/min 09/02/20 15:22 BUN/Creatinine Ratio 18 % 09/02/20 15:22 Glucose 206 mg/dL (65-100) H 09/02/20 15:22 POC Glucose 125 mg/dL (70-105) H 09/11/20 07:19 Hemoglobin A1c 10.7 % (4-6) H 09/02/20 15:22 Calcium 11.6 mg/dL (8.4-10.2) H 09/02/20 15:22 Total Bilirubin 0.50 mg/dL (0.1-1.2) 09/02/20 15:22 AST 26 units/L (5-40) 09/02/20 15:22 ALT 38 units/L (7-56) 09/02/20 15:22 Alkaline Phosphatase 103 units/L (35-129) 09/02/20 15:22 Total Protein 6.2 g/dL (6.3-8.2) L 09/02/20 15:22 Albumin 4.0 g/dL (3.9-5) 09/02/20 15:22 Albumin/Globulin Ratio 1.8 % 09/02/20 15:22 Triglycerides 198 mg/dL (2-149) H 09/02/20 15:22 Cholesterol 233 mg/dL (50-199) H 09/02/20 15:22 LDL Cholesterol Direct 152 mg/dL (50-130) H 09/02/20 15:22 HDL Cholesterol 61 mg/dL (40-59) H 09/02/20 15:22 Cholesterol/HDL Ratio 3.81 % 09/02/20 15:22 TSH 0.256 mlU/mL (0.270-4.200) L 09/02/20 15:22 Valproic Acid 87.8 ug/mL (50-100) 09/03/20 19:54 Core Measure Documentation - Palliative Care Palliative Care/ Comfort Measures: Not Applicable - Core Measures Any of the following diagnoses?: none Exam - Constitutional Vitals: Temp Pulse Resp BP Pulse Ox 97.6 F 84 18 109/74 98 09/11/20 07:36 09/11/20 07:36 09/11/20 07:36 09/11/20 07:36 09/11/20 07:36 General appearance: Present: no acute distress - Psychiatric Psychiatric: appropriate mood/affect, cooperative Plan Activity: advance as tolerated Weight Bearing Status: Weight Bear as Tolerated Diet: regular Care Plan Goals: Maintain good and stable mental health Plan of Treatment: The patient should be compliant with medications, not to use drugs, and not to drink alcohol. The patient understands that if suicidal ideas, homicidal ideas or any endangering feeling arise, the patient should seek assistance including, but not limited to crisis hotline, and emergency room. Health Concerns: DM, HTN Assessment: Schizophrenia Follow up with: PRIMARY CARE,MD [Primary Care Provider] - 7 Days Prescriptions: traZODone [Desyrel] 50 mg PO QHS 30 Days #30 tablet QUEtiapine [SEROquel] 300 mg PO QHS 30 Days #30 tablet Valproic Acid [Depakene] 500 mg PO TID #120 capsule FLUoxetine [PROzac] 30 mg PO QDAY #90 tablet QUEtiapine [SEROquel] 100 mg PO QAM 30 Days #30 tablet
[2020-09-11] MEDS: FLUoxetine 10 MG TAB PO SCH (10:42)
[2020-09-11] MEDS: GLIMEPIRIDE 2 MG TAB PO SCH (10:43)
[2020-09-11] MEDS: QUEtiapine 100 MG TAB PO SCH (10:43)
[2020-09-11] MEDS: VALPROIC ACID 250 MG CAP PO SCH ×2 (10:43→13:56)
[2020-09-11] MEDS: metFORMIN 500 MG TAB PO SCH (10:43)
== END 2020-09-11 14:00 | disposition home or self-care (01) | DRG 885 ==
LOC: 5A 17:53
PROVIDERS: ADMIT Psychiatry & Neurology Psychiatry; ATTEND Psychiatry & Neurology Psychiatry
DX: F20.9 Schizophrenia, unspecified (principal); E11.9 Type 2 diabetes mellitus without complications; Z79.899 Other long term (current) drug therapy
CPT/HCPCS: 36415; 80053; 80061; 80164; 82962; 83036; 84443; 85025; G0378; J1815; J3486

== ENCOUNTER 2020-09-17 10:47 | Emergency (ER) | payer MEDICARE ==
[2020-09-17 12:00] LABS: Bilirubin,Urine NEG (Negative); Blood,Urine SM (Negative); Color,Urine Yellow (Yellow); Protein,Urine <15 mg/dL mg/dL (Negative)
[2020-09-17 12:02] LABS: Amphetamine Screen,Urine Negative; Benzodiazepines Screen,Urine Negative; Cannabinoid Screen,Urine Negative; Cocaine Screen,Urine Negative; Methadone Screen,Urine Negative; Opiate Screen,Urine Negative
[2020-09-17 12:35] LABS: Basophils # (Auto) 0.1 K/mm3 (0.0-0.1); Eosinophils % (Auto) 0.5 % (0.0-4.3); Hematocrit 40.5 % (30.3-42.9); Hemoglobin 13.1 gm/dl (10.1-14.3); Lymphocytes # (Auto) 2.1 K/mm3 (1.2-5.4); Lymphocytes % (Auto) 40.5 % (13.4-35.0); Mean Corpuscular HGB Conc 32 % (30-34); Mean Corpuscular Volume 84 fl (79-97); Monocytes # (Auto) 0.3 K/mm3 (0.0-0.8); Monocytes % (Auto) 6.4 % (0.0-7.3); Platelet Count 165 K/mm3 (140-440); Red Blood Count 4.84 M/mm3 (3.65-5.03); Red Cell Distribution Width 13.7 % (13.2-15.2)
[2020-09-17] MEDS ORDERED: ZIPRASIDONE MESYLATE 20 MG VIAL IM PRN (13:00)
[2020-09-17 13:22] VITALS: BP 155/93
--- NOTE | 2020-09-17 14:31 | Emergency Department Report ---
ED General Adult HPI - General Chief complaint: Psych Stated complaint: BILATERAL EYE PAIN Time Seen by Provider: 09/17/20 11:10 Source: patient, EMS Mode of arrival: Ambulatory Limitations: No Limitations - History of Present Illness Initial comments: The patient presents to the emergency department for mental health evaluation. It is difficult to obtain a history from the patient due to her psychosis and paranoia. Patient has rambling and disorganized speech and at times is tangential in nature. When asked she was homicidal suicidal the patient does not answer the question. -: unknown Severity scale (0 -10): 0 Consistency: constant Improves with: none Worsens with: none - Related Data Previous Rx's Medication Instructions Recorded Last Taken Type metFORMIN [Glucophage] 500 mg PO BIDDIAB #60 tablet 07/22/20 Unknown Rx FLUoxetine [PROzac] 30 mg PO QDAY #90 tablet 09/04/20 Unknown Rx Valproic Acid [Depakene] 500 mg PO TID #120 capsule 09/04/20 Unknown Rx Glimepiride [Amaryl] 2 mg PO QDDIAB tablet 09/11/20 Unknown Rx Lispro Insulin [HumaLOG] 0 unit SUB-Q ACHS units 09/11/20 Unknown Rx QUEtiapine [SEROquel] 100 mg PO QAM 30 Days #30 tablet 09/11/20 Unknown Rx QUEtiapine [SEROquel] 300 mg PO QHS 30 Days #30 tablet 09/11/20 Unknown Rx traZODone [Desyrel] 50 mg PO QHS 30 Days #30 tablet 09/11/20 Unknown Rx Allergies Allergy/AdvReac Type Severity Reaction Status Date / Time haloperidol [From Haldol] Allergy Unknown Verified 07/10/20 01:32 ED Review of Systems ROS: Stated complaint: BILATERAL EYE PAIN Other details as noted in HPI Constitutional: denies: chills, fever Eyes: denies: eye pain, eye discharge, vision change ENT: denies: ear pain, throat pain Respiratory: denies: cough, shortness of breath, wheezing Cardiovascular: denies: chest pain, palpitations Endocrine: no symptoms reported Gastrointestinal: denies: abdominal pain, nausea, diarrhea Genitourinary: denies: urgency, dysuria, discharge Musculoskeletal: denies: back pain, joint swelling, arthralgia Skin: denies: rash, lesions Neurological: denies: headache, weakness, paresthesias Psychiatric: denies: anxiety, depression Hematological/Lymphatic: denies: easy bleeding, easy bruising ED Past Medical Hx - Past Medical History Hx Hypertension: Yes Hx Congestive Heart Failure: No Hx Diabetes: Yes Hx Renal Disease: No Hx Arthritis: No Hx Seizures: No Hx Psychiatric Treatment: Yes (depression, anxiety) Hx Asthma: No Hx COPD: No Hx Dementia: No - Surgical History Hx Cholecystectomy: No Hx Appendectomy: No Additional Surgical History: "I don't remember", pt stated - Social History Smoking Status: Never Smoker Substance Use Type: None - Medications Home Medications: Home Medications Medication Instructions Recorded Confirmed Last Taken Type metFORMIN [Glucophage] 500 mg PO BIDDIAB #60 tablet 07/22/20 09/02/20 Unknown Rx FLUoxetine [PROzac] 30 mg PO QDAY #90 tablet 09/04/20 Unknown Rx Valproic Acid [Depakene] 500 mg PO TID #120 capsule 09/04/20 Unknown Rx Glimepiride [Amaryl] 2 mg PO QDDIAB tablet 09/11/20 Unknown Rx Lispro Insulin [HumaLOG] 0 unit SUB-Q ACHS units 09/11/20 Unknown Rx QUEtiapine [SEROquel] 100 mg PO QAM 30 Days #30 tablet 09/11/20 Unknown Rx QUEtiapine [SEROquel] 300 mg PO QHS 30 Days #30 tablet 09/11/20 Unknown Rx traZODone [Desyrel] 50 mg PO QHS 30 Days #30 tablet 09/11/20 Unknown Rx ED Physical Exam - General Limitations: No Limitations General appearance: alert, in no apparent distress - Head Head exam: Present: atraumatic, normocephalic - Eye Eye exam: Present: normal appearance - ENT ENT exam: Present: mucous membranes moist - Neck Neck exam: Present: normal inspection - Respiratory Respiratory exam: Present: normal lung sounds bilaterally. Absent: respiratory distress - Cardiovascular Cardiovascular Exam: Present: regular rate, normal rhythm. Absent: systolic murmur, diastolic murmur, rubs, gallop - GI/Abdominal GI/Abdominal exam: Present: soft, normal bowel sounds. Absent: distended, tenderness - Extremities Exam Extremities exam: Present: normal inspection - Back Exam Back exam: Present: normal inspection - Neurological Exam Neurological exam: Present: alert, oriented X3 - Psychiatric Psychiatric exam: Present: other (Paranoid) - Skin Skin exam: Present: warm, dry, intact, normal color. Absent: rash ED Course Vital Signs 09/17/20 13:21 Temperature 98.0 F Pulse Rate 89 Respiratory 18 Rate Blood Pressure 155/93 [Right] O2 Sat by Pulse 98 Oximetry ED Medical Decision Making - Lab Data Result diagrams: 09/17/20 11:37 09/17/20 11:37 Lab Results 09/17/20 09/17/20 09/17/20 Range/Units 11:14 11:14 11:37 WBC (4.5-11.0) K/mm3 RBC (3.65-5.03) M/mm3 Hgb (10.1-14.3) gm/dl Hct (30.3-42.9) % MCV (79-97) fl MCH (28-32) pg MCHC (30-34) % RDW (13.2-15.2) % Plt Count (140-440) K/mm3 Lymph % (Auto) (13.4-35.0) % [place] % (Auto) (0.0-7.3) % Eos % (Auto) (0.0-4.3) % Baso % (Auto) (0.0-1.8) % Lymph # (Auto) (1.2-5.4) K/mm3 [place] # (Auto) (0.0-0.8) K/mm3 Eos # (Auto) (0.0-0.4) K/mm3 Baso # (Auto) (0.0-0.1) K/mm3 Seg Neutrophils % (40.0-70.0) % Seg Neutrophils # (1.8-7.7) K/mm3 Urine Color Yellow (Yellow) Urine Turbidity Turbid (Clear) Urine pH 7.0 (5.0-7.0) Ur Specific [place] 1.016 (1.003-1.030) Urine Protein <15 mg/dl (Negative) mg/dL Urine Glucose (UA) >=500 (Negative) mg/dL Urine Ketones Neg (Negative) mg/dL Urine Blood Sm (Negative) Urine Nitrite Neg (Negative) Urine Bilirubin Neg (Negative) Urine Urobilinogen 2.0 (<2.0) mg/dL Ur Leukocyte Esterase Lg (Negative) Urine WBC (Auto) 9.0 H (0.0-6.0) /HPF Urine RBC (Auto) 9.0 (0.0-6.0) /HPF U Epithel Cells (Auto) 25.0 H (0-13.0) /HPF Ur Transition Epith Cell 1 /HPF Salicylates 0.3 L (2.8-20.0) mg/dL Urine Opiates Screen Negative Urine Methadone Screen Negative Acetaminophen (10.0-30.0) ug/mL Ur Barbiturates Screen Negative Ur Phencyclidine Scrn Negative Ur Amphetamines Screen Negative U Benzodiazepines Scrn Negative Urine Cocaine Screen Negative U Marijuana (THC) Screen Negative Drugs of Abuse Note Disclamer Plasma/Serum Alcohol (0-0.07) % 09/17/20 09/17/20 09/17/20 Range/Units 11:37 11:37 11:37 WBC 5.1 (4.5-11.0) K/mm3 RBC 4.84 (3.65-5.03) M/mm3 Hgb 13.1 (10.1-14.3) gm/dl Hct 40.5 (30.3-42.9) % MCV 84 (79-97) fl MCH 27 L (28-32) pg MCHC 32 (30-34) % RDW 13.7 (13.2-15.2) % Plt Count 165 (140-440) K/mm3 Lymph % (Auto) 40.5 H (13.4-35.0) % [place] % (Auto) 6.4 (0.0-7.3) % Eos % (Auto) 0.5 (0.0-4.3) % Baso % (Auto) 1.0 (0.0-1.8) % Lymph # (Auto) 2.1 (1.2-5.4) K/mm3 [place] # (Auto) 0.3 (0.0-0.8) K/mm3 Eos # (Auto) 0.0 (0.0-0.4) K/mm3 Baso # (Auto) 0.1 (0.0-0.1) K/mm3 Seg Neutrophils % 51.6 (40.0-70.0) % Seg Neutrophils # 2.6 (1.8-7.7) K/mm3 Urine Color (Yellow) Urine Turbidity (Clear) Urine pH (5.0-7.0) Ur Specific [place] (1.003-1.030) Urine Protein (Negative) mg/dL Urine Glucose (UA) (Negative) mg/dL Urine Ketones (Negative) mg/dL Urine Blood (Negative) Urine Nitrite (Negative) Urine Bilirubin (Negative) Urine Urobilinogen (<2.0) mg/dL Ur Leukocyte Esterase (Negative) Urine WBC (Auto) (0.0-6.0) /HPF Urine RBC (Auto) (0.0-6.0) /HPF U Epithel Cells (Auto) (0-13.0) /HPF Ur Transition Epith Cell /HPF Salicylates (2.8-20.0) mg/dL Urine Opiates Screen Urine Methadone Screen Acetaminophen 5.0 L (10.0-30.0) ug/mL Ur Barbiturates Screen Ur Phencyclidine Scrn Ur Amphetamines Screen U Benzodiazepines Scrn Urine Cocaine Screen U Marijuana (THC) Screen Drugs of Abuse Note Plasma/Serum Alcohol < 0.01 (0-0.07) % - Medical Decision Making ED hold placed 1013 applied Mental health evaluation has been provided and awaiting remainder of labs for medical clearance and possible mental health placement Patient medically cleared Given Keflex Critical care attestation.: If time is entered above; I have spent that time in minutes in the direct care of this critically ill patient, excluding procedure time. ED Disposition Clinical Impression: Paranoia Disposition: [id number]/TX-65 PSY HOSP/PSY UNIT Is pt being admited?: No Does the pt Need Aspirin: No Condition: Stable Referrals: AMAIRANI SOTO [Other] - 3-5 Days
[2020-09-17 15:06] LABS: BUN/Creatinine Ratio 10; Blood Urea Nitrogen 7 mg/dL (7-17); Calcium 11.6 mg/dL (8.4-10.2); Hemolysis Index 9
[2020-09-17] MEDS ORDERED: cephALEXin ORAL LIQD 500 MG/10 ML ORAL LIQD PO ONE (16:00)
== END 2020-09-17 19:39 ==
LOC: ED 10:47
DX: F22 Delusional disorders (principal); I10 Essential (primary) hypertension; E11.9 Type 2 diabetes mellitus without complications; F32.9 Major depressive disorder, single episode, unspecified; Z98.890 Other specified postprocedural states; Z79.84 Long term (current) use of oral hypoglycemic drugs; Z79.899 Other long term (current) drug therapy; Z88.8 Allergy status to other drugs, medicaments and biological substances
CPT/HCPCS: 36415; 80048; 80307; 80320; 81001; 85025; 87086; G0480

== ENCOUNTER 2021-04-14 22:12 | Observation (INO) | payer MEDICARE ==
[2021-04-15] MEDS ORDERED: cloNIDine 0.2 MG TAB PO ONE (00:25)
[2021-04-15] MEDS ORDERED: LORazepam 1 MG TAB PO ONE ×2 (00:44→05:30)
--- NOTE | 2021-04-15 00:48 | Emergency Department Report ---
HPI - General Chief Complaint: Psych Time Seen by Provider: 04/15/21 00:24 - HPI HPI: Room 15 The patient is a 50-year-old female present with a chief complaint of paranoia. The patient called EMS because she thought someone was trying to kill her. In the ED the patient has rambling speech and appears paranoid stating things such as "I was living a double life", "I was afraid," "they are acting diabolical." The patient continues to ramble during the history but denies suicidal ideation ED Past Medical Hx - Past Medical History Hx Hypertension: Yes Hx Diabetes: Yes Hx Psychiatric Treatment: Yes (depression, anxiety) - Surgical History Additional Surgical History: "I don't remember", pt stated - Family History Family history: no significant - Social History Smoking Status: Unknown if ever smoked Substance Use Type: None - Medications Home Medications: Home Medications Medication Instructions Recorded Confirmed Last Taken Type metFORMIN [Glucophage] 500 mg PO BIDDIAB #60 tablet 07/22/20 09/02/20 Unknown Rx FLUoxetine [PROzac] 30 mg PO QDAY #90 tablet 09/04/20 Unknown Rx Valproic Acid [Depakene] 500 mg PO TID #120 capsule 09/04/20 Unknown Rx Glimepiride [Amaryl] 2 mg PO QDDIAB tablet 09/11/20 Unknown Rx Lispro Insulin [HumaLOG] 0 unit SUB-Q ACHS units 09/11/20 Unknown Rx QUEtiapine [SEROquel] 100 mg PO QAM 30 Days #30 tablet 09/11/20 Unknown Rx QUEtiapine [SEROquel] 300 mg PO QHS 30 Days #30 tablet 09/11/20 Unknown Rx traZODone [Desyrel] 50 mg PO QHS 30 Days #30 tablet 09/11/20 Unknown Rx ED Review of Systems ROS: Stated complaint: HULLUCINATIONS Other details as noted in HPI Comment: Unobtainable due to pts medical conditions Psychiatric: denies: suicidal thoughts Physical Exam - Physical Exam Vital Signs: Vital Signs 04/14/21 22:43 Temperature 98.9 F Pulse Rate 88 Respiratory 18 Rate Blood Pressure 187/110 [Left] O2 Sat by Pulse 99 Oximetry Physical Exam: GENERAL: The patient is well-developed well-nourished female sitting in chair not appearing to be in acute distress. Patient exhibiting pressured rambling speech HEENT: Normocephalic. Atraumatic. Extraocular motions are intact. Patient has moist mucous membranes. NECK: Supple. Trachea midline CHEST/LUNGS: Clear to auscultation. There is no respiratory distress noted. HEART/CARDIOVASCULAR: Regular. There is no tachycardia. There is no gallop rub or murmur. ABDOMEN: Abdomen is soft, nontender. Patient has normal bowel sounds. There is no abdominal distention. SKIN: There is no rash. There is no edema. There is no diaphoresis. NEURO: The patient is awake and alert. The patient is cooperative. The patient has no focal neurologic deficits. The patient has pressured/rambling speech.. GCS 15 MUSCULOSKELETAL: There is no tenderness or deformity. There is no limitation range of motion. There is no evidence of acute injury. ED Course Vital Signs 04/14/21 22:43 Temperature 98.9 F Pulse Rate 88 Respiratory 18 Rate Blood Pressure 187/110 [Left] O2 Sat by Pulse 99 Oximetry ED Medical Decision Making - Lab Data Result diagrams: 04/15/21 00:51 04/15/21 00:51 - EKG Data -: EKG Interpreted by Nv EKG shows normal: sinus rhythm Rate: normal - EKG Data When compared to previous EKG there are: previous EKG unavailable Interpretation: other (Right bundle branch block) 04/15/21 05:32 QTC 436 - Differential Diagnosis Paranoia, schizophrenia Critical care attestation.: If time is entered above; I have spent that time in minutes in the direct care of this critically ill patient, excluding procedure time. ED Disposition Clinical Impression: Hypercalcemia, Paranoia Disposition: ADMITTED INPATIENT Is pt being admited?: Yes Does the pt Need Aspirin: No Condition: Fair Time of Disposition: 05:32 (Hospitalist notified (Dr Gonzalez))
[2021-04-15 01:14] LABS: Basophils # (Auto) 0.1 K/mm3 (0.0-0.1); Basophils % (Auto) 1.3 % (0.0-1.8); Eosinophils # (Auto) 0.1 K/mm3 (0.0-0.4); Eosinophils % (Auto) 1.7 % (0.0-4.3); Hematocrit 44.2 % (30.3-42.9); Hemoglobin 13.9 gm/dl (10.1-14.3); Lymphocytes # (Auto) 2.2 K/mm3 (1.2-5.4); Lymphocytes % (Auto) 42.6 % (13.4-35.0); Mean Corpuscular HGB Conc 32 % (30-34); Mean Corpuscular Volume 84 fl (79-97); Monocytes # (Auto) 0.3 K/mm3 (0.0-0.8); Monocytes % (Auto) 5.1 % (0.0-7.3); Platelet Count 237 K/mm3 (140-440); Red Blood Count 5.28 M/mm3 (3.65-5.03)
[2021-04-15 01:19] LABS: Blood Urea Nitrogen 9 mg/dL (7-17); Calcium 11.9 mg/dL (8.4-10.2); Hemolysis Index 5
[2021-04-15 01:24] LABS: BUN/Creatinine Ratio 13
[2021-04-15] MEDS ORDERED: SODIUM CHLORIDE 0.9% 1000 ML 1,000 ML IV ONE ×2 (01:26)
[2021-04-15] MEDS ORDERED: SODIUM CHLORIDE 0.9% 1000 ML 2,000 ML ONE (05:20)
[2021-04-15] MEDS ORDERED: ONDANSETRON 4 MG/2 ML INJ IV PRN (05:39)
[2021-04-15] MEDS ORDERED: MAGNESIUM HYDROXIDE (MOM) ORAL LIQD UDC PO PRN (05:39)
[2021-04-15] MEDS ORDERED: MORPHINE 4 MG/1 ML INJ IV PRN (05:39)
[2021-04-15] MEDS ORDERED: MORPHINE 2 MG/1 ML INJ IV PRN (05:39)
[2021-04-15] MEDS ORDERED: DEXTROSE 50% IN WATER (25GM) 50 ML SYRINGE IV PRN (05:39)
[2021-04-15] MEDS ORDERED: ACETAMINOPHEN 325 MG TAB PO PRN (05:39)
[2021-04-15] MEDS: ZIPRASIDONE MESYLATE 20 MG VIAL IM PRN (05:44)
[2021-04-15] MEDS ORDERED: SODIUM CHLORIDE 0.9% 1000 ML 1,000 ML IV SCH (05:45)
--- NOTE | 2021-04-15 05:52 | History and Physical Report ---
History of Present Illness Date of examination: 04/15/21 Date of admission: 04/15/2021 Chief complaint: Paranoia History of present illness: 50-year-old female with known history of depression and anxiety brought into the emergency room for evaluation of paranoia. Patient had called EMS indicating that somebody was trying to kill her. Patient denies any suicidal or homicidal ideations. She denies any headache or dizziness denies any diaphoresis. Denies any fever or chills, no chest pain or shortness of breath. Patient however had appears paranoid stating that she is afraid and that people were after her. She denies any visual or auditory hallucinations. Work-up in the emergency room however reveals that patient is hypercalcemic with a calcium level of 11.9. Patient has been initiated on IV fluid in the emergency room. Past History Past Medical History: diabetes, hypertension, other (Depression,Anxiety) Past Surgical History: No surgical history Social history: no significant social history Family history: no significant family history Medications and Allergies Allergies Allergy/AdvReac Type Severity Reaction Status Date / Time haloperidol [From Haldol] Allergy Unknown Verified 04/14/21 22:41 Home Medications Medication Instructions Recorded Confirmed Last Taken Type metFORMIN [Glucophage] 500 mg PO BIDDIAB #60 tablet 07/22/20 09/02/20 Unknown Rx FLUoxetine [PROzac] 30 mg PO QDAY #90 tablet 09/04/20 Unknown Rx Valproic Acid [Depakene] 500 mg PO TID #120 capsule 09/04/20 Unknown Rx Glimepiride [Amaryl] 2 mg PO QDDIAB tablet 09/11/20 Unknown Rx Lispro Insulin [HumaLOG] 0 unit SUB-Q ACHS units 09/11/20 Unknown Rx QUEtiapine [SEROquel] 100 mg PO QAM 30 Days #30 tablet 09/11/20 Unknown Rx QUEtiapine [SEROquel] 300 mg PO QHS 30 Days #30 tablet 09/11/20 Unknown Rx traZODone [Desyrel] 50 mg PO QHS 30 Days #30 tablet 09/11/20 Unknown Rx Active Meds: Active Medications Acetaminophen (Acetaminophen 325 Mg Tab) 650 mg PO Q4H PRN PRN Reason: Pain MILD(1-3)/Fever >100.5/JAQUEZ Dextrose (Dextrose 50% In Water (25gm) 50 Ml Syringe) 50 ml IV Q30MIN PRN; Protocol PRN Reason: Hypoglycemia Dextrose (Dextrose 50% In Water (25gm) 50 Ml Syringe) 50 ml IV Q30MIN PRN; Protocol PRN Reason: Hypoglycemia Diphenhydramine HCl (Diphenhydramine 50 Mg/Ml Vial) 50 mg IM Q6H PRN PRN Reason: Agitation Heparin Sodium (Porcine) (Heparin 5,000 Unit/1 Ml Vial) 5,000 unit SUB-Q Q8HR JORGE Sodium Chloride (Nacl 0.9% 1000 Ml) 1,000 mls @ 150 mls/hr IV DIRECT JORGE Insulin Human Lispro (Insulin Lispro 100 Unit/Ml) 0 unit SUB-Q ACHS JORGE; Protocol Lorazepam (Lorazepam 2 Mg/Ml Vial) 2 mg IM Q8H PRN PRN Reason: Agitation Magnesium Hydroxide (Magnesium Hydroxide (Mom) Oral Liqd Udc) 30 ml PO Q4H PRN PRN Reason: Constipation Morphine Sulfate (Morphine 2 Mg/1 Ml Inj) 2 mg IV Q4H PRN PRN Reason: Pain, Moderate (4-6) Morphine Sulfate (Morphine 4 Mg/1 Ml Inj) 4 mg IV Q4H PRN PRN Reason: Pain , Severe (7-10) Ondansetron HCl (Ondansetron 4 Mg/2 Ml Inj) 4 mg IV Q8H PRN PRN Reason: Nausea And Vomiting Sodium Chloride (Sodium Chloride 0.9% 10 Ml Flush Syringe) 10 ml IV BID JORGE Sodium Chloride (Sodium Chloride 0.9% 10 Ml Flush Syringe) 10 ml IV PRN PRN PRN Reason: LINE FLUSH Ziprasidone (Ziprasidone Mesylate 20 Mg Vial) 10 mg IM Q2H PRN PRN Reason: Agitation Review of Systems Constitutional: no fever, no chills Ears, nose, mouth and throat: no nasal congestion, no sore throat Cardiovascular: no chest pain, no palpitations Respiratory: no cough, no shortness of breath Gastrointestinal: no abdominal pain, no nausea, no vomiting, no diarrhea Genitourinary Female: no pelvic pain, no flank pain, no dysuria, no hematuria Musculoskeletal: no neck pain, no low back pain Integumentary: no rash, no pruritis Neurological: no headaches, no confusion Psychiatric: paranoia, no anxiety, no depression Endocrine: no polyphagia, no polydipsia, no polyuria, no nocturia Exam - Constitutional Vitals: Temp Pulse Resp BP Pulse Ox 98.8 F 79 16 135/86 99 04/15/21 02:44 04/15/21 02:44 04/15/21 02:44 04/15/21 02:44 04/15/21 02:44 General appearance: Present: no acute distress, well-nourished - EENT Eyes: Present: PERRL, EOM intact. Absent: scleral icterus ENT: hearing intact, clear oral mucosa, dentition normal - Neck Neck: Present: supple, normal ROM - Respiratory Respiratory effort: normal Respiratory: bilateral: CTA - Cardiovascular Rhythm: regular Heart Sounds: Present: S1 & S2. Absent: gallop, systolic murmur, diastolic murmur, rub, click - Extremities Extremities: no ischemia, pulses intact, pulses symmetrical, No edema, normal temperature, normal color, Full ROM, abnormal Peripheral Pulses: within normal limits - Abdominal General gastrointestinal: Present: soft, non-tender, non-distended, normal bowel sounds. Absent: mass - Integumentary Integumentary: Present: clear, warm, dry, normal turgor. Absent: rash - Musculoskeletal Musculoskeletal: strength equal bilaterally - Psychiatric Psychiatric: appropriate mood/affect, intact judgment & insight, memory intact, cooperative - Neurologic Neurologic: CNII-XII intact, no focal deficits, moves all extremities Results - Labs CBC & Chem 7: 04/15/21 00:51 04/15/21 00:51 Labs: Abnormal lab results 04/15/21 04/15/21 04/15/21 Range/Units 00:51 00:51 00:51 RBC 5.28 H (3.65-5.03) M/mm3 Hct 44.2 H (30.3-42.9) % MCH 26 L (28-32) pg Lymph % (Auto) 42.6 H (13.4-35.0) % Glucose 186 H (65-100) mg/dL Calcium 11.9 H (8.4-10.2) mg/dL Salicylates < 0.3 L (2.8-20.0) mg/dL Acetaminophen (10.0-30.0) ug/mL Valproic Acid < 2.8 L (50-100) ug/mL 04/15/21 Range/Units 00:51 RBC (3.65-5.03) M/mm3 Hct (30.3-42.9) % MCH (28-32) pg Lymph % (Auto) (13.4-35.0) % Glucose (65-100) mg/dL Calcium (8.4-10.2) mg/dL Salicylates (2.8-20.0) mg/dL Acetaminophen 5.0 L (10.0-30.0) ug/mL Valproic Acid (50-100) ug/mL Assessment and Plan - Patient Problems (1) Paranoia Current Visit: Yes Status: Acute Plan to address problem: Patient has known history of depression. Will place consult to mental health for evaluation. (2) Hypercalcemia Current Visit: Yes Status: Acute Plan to address problem: Etiology unclear. We will place patient on IV fluids and monitor chemistry closely. We will also check PTH. Consult placed to nephrology for evaluation and recommendations. (3) Diabetes Current Visit: No Status: Acute Plan to address problem: We will monitor Accu-Cheks closely. Patient placed on sliding scale insulin. (4) HTN (hypertension) Current Visit: No Status: Acute Qualifiers: Hypertension type: essential hypertension Plan to address problem: Placed on routine home medications and monitor vital signs closely. (5) DVT prophylaxis Current Visit: No Status: Acute Plan to address problem: We will place on subcutaneous heparin. (6) Full code status Current Visit: Yes Status: Acute Plan to address problem: Patient is full code.
[2021-04-15] MEDS: diphenhydrAMINE 50 MG/ML VIAL IM PRN (05:54)
[2021-04-15] MEDS ORDERED: DEXTROSE 10% *Hypoglycemia IV PRN (06:15)
[2021-04-15] MEDS: HEPARIN 5,000 UNIT/1 ML VIAL SUB-Q SCH ×3 (06:40→22:26)
[2021-04-15] MEDS: INSULIN LISPRO 100 UNIT/ML SUB-Q SCH ×4 (08:40→22:26)
--- NOTE | 2021-04-15 09:12 | Consultation ---
History of Present Illness - Reason for Consult Consult date: 04/15/21 other (hypercalcemia) - History of Present Illness Per medical records: The patient is a 50-year-old female present with a chief complaint of paranoia. The patient called EMS because she thought someone was trying to kill her. In the ED the patient has rambling speech and appears paranoid stating things such as "I was living a double life", "I was afraid," "they are acting diabolical." The patient continues to ramble during the history but denies suicidal ideation. Patient denies use of Ca supplements. She denies prior hx of hypercalcemia Past History Past Medical History: diabetes, hypertension, other (Depression,Anxiety) Past Surgical History: No surgical history Social history: no significant social history Family history: no significant family history Medications and Allergies Allergies Allergy/AdvReac Type Severity Reaction Status Date / Time haloperidol [From Haldol] Allergy Unknown Verified 04/14/21 22:41 Home Medications Medication Instructions Recorded Confirmed Last Taken Type metFORMIN [Glucophage] 500 mg PO BIDDIAB #60 tablet 07/22/20 09/02/20 Unknown Rx FLUoxetine [PROzac] 30 mg PO QDAY #90 tablet 09/04/20 Unknown Rx Valproic Acid [Depakene] 500 mg PO TID #120 capsule 09/04/20 Unknown Rx Glimepiride [Amaryl] 2 mg PO QDDIAB tablet 09/11/20 Unknown Rx Lispro Insulin [HumaLOG] 0 unit SUB-Q ACHS units 09/11/20 Unknown Rx QUEtiapine [SEROquel] 100 mg PO QAM 30 Days #30 tablet 09/11/20 Unknown Rx QUEtiapine [SEROquel] 300 mg PO QHS 30 Days #30 tablet 09/11/20 Unknown Rx traZODone [Desyrel] 50 mg PO QHS 30 Days #30 tablet 09/11/20 Unknown Rx Active Meds: Active Medications Acetaminophen (Acetaminophen 325 Mg Tab) 650 mg PO Q4H PRN PRN Reason: Pain MILD(1-3)/Fever >100.5/JAQUEZ Dextrose (Dextrose 10% *Hypoglycemia) 0 ml IV PRN PRN; Protocol PRN Reason: Hypoglycemia Diphenhydramine HCl (Diphenhydramine 50 Mg/Ml Vial) 50 mg IM Q6H PRN PRN Reason: Agitation Last Admin: 04/15/21 05:54 Dose: 50 mg Heparin Sodium (Porcine) (Heparin 5,000 Unit/1 Ml Vial) 5,000 unit SUB-Q Q8HR JORGE Last Admin: 04/15/21 06:40 Dose: 5,000 unit Sodium Chloride (Nacl 0.9% 1000 Ml) 1,000 mls @ 150 mls/hr IV DIRECT JORGE Insulin Human Lispro (Insulin Lispro 100 Unit/Ml) 0 unit SUB-Q ACHS JORGE; Protocol Last Admin: 04/15/21 08:40 Dose: Not Given Lorazepam (Lorazepam 2 Mg/Ml Vial) 2 mg IM Q8H PRN PRN Reason: Agitation Magnesium Hydroxide (Magnesium Hydroxide (Mom) Oral Liqd Udc) 30 ml PO Q4H PRN PRN Reason: Constipation Morphine Sulfate (Morphine 2 Mg/1 Ml Inj) 2 mg IV Q4H PRN PRN Reason: Pain, Moderate (4-6) Morphine Sulfate (Morphine 4 Mg/1 Ml Inj) 4 mg IV Q4H PRN PRN Reason: Pain , Severe (7-10) Ondansetron HCl (Ondansetron 4 Mg/2 Ml Inj) 4 mg IV Q8H PRN PRN Reason: Nausea And Vomiting Sodium Chloride (Sodium Chloride 0.9% 10 Ml Flush Syringe) 10 ml IV BID JORGE Sodium Chloride (Sodium Chloride 0.9% 10 Ml Flush Syringe) 10 ml IV PRN PRN PRN Reason: LINE FLUSH Ziprasidone (Ziprasidone Mesylate 20 Mg Vial) 10 mg IM Q2H PRN PRN Reason: Agitation Last Admin: 04/15/21 05:44 Dose: 10 mg Review of Systems All systems: negative Exam - Vital Signs Vital signs: Vital Signs Temp Pulse Resp BP Pulse Ox 98.9 F 88 18 187/110 99 04/14/21 22:43 04/14/21 22:43 04/14/21 22:43 04/14/21 22:43 04/14/21 22:43 - General Appearance General appearance: well-developed, well-nourished EENT: ATNC Respiratory: Clear to Ascultation Heart: regular, S1S2 Gastrointestinal: Present: normal. Absent: tenderness, distended Neurologic: alert and oriented x3 Psychiatric: paranoid ideation, pressured speech Results - Lab Results 04/15/21 00:51 04/15/21 00:51 Most recent lab results Calcium 11.9 mg/dL (8.4-10.2) H 04/15/21 00:51 Assessment and Plan Impression: * Hypercalcemia, asymptomatic * Paranoia * Type II diabetes mellitus * Hypertension Plan * Continue normal saline at current rate * Will obtain iCa * Will obtain SIFE, PTH, NATA * Consider addition of calcitonin if hypercalcemia is refractory * Repeat BMP today * Psychiatric management/work up per primary team/psychiatry
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
--- NOTE | 2021-04-15 14:12 | Electrocardiograph Report ---
[facility] Test Date: 2021-04-15 Test Time: 05:22:25 Pat Name: WANDA MARTELL Department: Room: A392 Gender: F Dairy Helper: CAMILA : 1970 Requested By: PAUL BONILLA Order Number: [id number] Reading MD: Laxmi Shell Measurements Intervals [place] Rate: 70 P: 43 PA: 135 QRS: -44 QRSD: 157 T: 49 QT: 402 QTc: 436 Interpretive Statements Sinus rhythm RBBB and LAFB Probable left ventricular hypertrophy No previous ECG available for comparison Electronically Signed On 04-15-2021 14:11:40 EST by Laxmi Shell
--- NOTE | 2021-04-15 15:58 | Event Note ---
Date: 04/15/21 Patient seen and examined at the bedside. Continues to have paranoia and pressured speech. Evaluated by nephrology and psychiatry. We will continue normal saline for hypercalcemia. Home Depakote and Seroquel started. Inpatient psychiatric treatment recommended. Klonopin added by psychiatry. We will continue to monitor.
[2021-04-15] MEDS: DIVALPROEX ER 500 MG TAB PO SCH ×2 (19:01→22:26)
[2021-04-15] MEDS: clonazePAM 0.5 MG TAB PO SCH ×2 (19:02→22:26)
[2021-04-15] MEDS: QUEtiapine 100 MG TAB PO SCH (22:26)
[2021-04-16 00:19] LABS: Color,Urine Yellow (Yellow)
[2021-04-16 00:20] LABS: Bilirubin,Urine NEG (Negative); Blood,Urine NEG (Negative); Protein,Urine <15 mg/dL mg/dL (Negative)
[2021-04-16 00:28] LABS: Amphetamine Screen,Urine PRESUMPTIVE NEGATIVE; Benzodiazepines Screen,Urine PRESUMPTIVE NEGATIVE; Cannabinoid Screen,Urine PRESUMPTIVE NEGATIVE; Cocaine Screen,Urine PRESUMPTIVE NEGATIVE; Methadone Screen,Urine PRESUMPTIVE NEGATIVE; Opiate Screen,Urine PRESUMPTIVE NEGATIVE
[2021-04-16 06:45] LABS: Basophils % (Auto) 0.8 % (0.0-1.8); Eosinophils # (Auto) 0.1 K/mm3 (0.0-0.4); Eosinophils % (Auto) 1.7 % (0.0-4.3); Hematocrit 39.2 % (30.3-42.9); Hemoglobin 12.3 gm/dl (10.1-14.3); Lymphocytes % (Auto) 49.3 % (13.4-35.0); Mean Corpuscular HGB Conc 32 % (30-34); Mean Corpuscular Volume 84 fl (79-97); Monocytes # (Auto) 0.3 K/mm3 (0.0-0.8); Monocytes % (Auto) 6.8 % (0.0-7.3); Platelet Count 196 K/mm3 (140-440); Red Blood Count 4.66 M/mm3 (3.65-5.03); Red Cell Distribution Width 13.9 % (13.2-15.2)
[2021-04-16] MEDS: HEPARIN 5,000 UNIT/1 ML VIAL SUB-Q SCH ×3 (06:58→21:15)
[2021-04-16 07:05] LABS: Blood Urea Nitrogen 13 mg/dL (7-17); Calcium 10.1 mg/dL (8.4-10.2); Hemolysis Index 5
[2021-04-16 07:29] LABS: BUN/Creatinine Ratio 26
[2021-04-16] MEDS ORDERED: WATER FOR INJ Sterile (PF) 10 ML ONE ×2 (07:48→19:51)
[2021-04-16] MEDS: ZIPRASIDONE MESYLATE 20 MG VIAL IM PRN ×2 (08:10→21:04)
[2021-04-16] MEDS: INSULIN LISPRO 100 UNIT/ML SUB-Q SCH ×4 (08:11→21:13)
[2021-04-16] MEDS ORDERED: QUEtiapine 100 MG TAB PO SCH (10:00)
[2021-04-16] MEDS: DIVALPROEX ER 500 MG TAB PO SCH ×4 (12:37→21:14)
[2021-04-16] MEDS: clonazePAM 0.5 MG TAB PO SCH ×3 (12:37→21:15)
--- NOTE | 2021-04-16 12:41 | Progress Note ---
Assessment and Plan Impression: * Hypercalcemia, asymptomatic - resolved * Paranoia * Type II diabetes mellitus * Hypertension Plan * Hypercalcemia resolved with conservative management - continue IVF * iCa, SIFE, PTH, NATA pending * Psychiatric management/work up per primary team/psychiatry * AM labs * Will follow peripherally Subjective Date of service: 04/16/21 Interval history: Patient resting in bed comfortably Objective - Vital Signs Vital signs: Vital Signs - 12hr 04/16/21 04/16/21 05:06 08:26 Temperature 98.3 F Pulse Rate 71 Respiratory 18 Rate Blood Pressure 131/75 [Left] O2 Sat by Pulse 97 95 Oximetry - General Appearance General appearance: well-developed, well-nourished, appears stated age EENT: mucous membranes moist Respiratory: Present: Clear to Ascultation Cardiology: regular, S1S2 Gastrointestinal: normal, no tenderness, no distended Integumentary: warm and dry Neurologic: alert and oriented x3 Psychiatric: cooperative - Lab 04/16/21 06:11 04/16/21 06:11 Most recent lab results Calcium 10.1 mg/dL (8.4-10.2) D 04/16/21 06:11 Medications & Allergies - Medications Allergies/Adverse Reactions: Allergies haloperidol [From Haldol] Allergy (Verified 04/14/21 22:41) Unknown Home Medications: Home Medications Medication Instructions Recorded Confirmed Last Taken Type metFORMIN [Glucophage] 500 mg PO BIDDIAB #60 tablet 07/22/20 09/02/20 Unknown Rx Glimepiride [Amaryl] 2 mg PO QDDIAB tablet 09/11/20 Unknown Rx Lispro Insulin [HumaLOG] 0 unit SUB-Q ACHS units 09/11/20 Unknown Rx traZODone [Desyrel] 50 mg PO QHS 30 Days #30 tablet 09/11/20 Unknown Rx Divalproex ER [Depakote ER] 500 mg PO BID 30 Days #60 tablet 04/16/21 Unknown Rx QUEtiapine [SEROquel] 100 mg PO QAM 30 Days #30 tablet 04/16/21 Unknown Rx QUEtiapine [SEROquel] 300 mg PO QHS 30 Days #90 tablet 04/16/21 Unknown Rx clonazePAM [KlonoPIN] 0.25 mg PO BID 1 Days #4 tablet 04/16/21 Unknown Rx Active Medications: Generic Name Dose Route Start Last Admin Trade Name Freq PRN Reason Stop Dose Admin Acetaminophen 650 mg 04/15/21 05:39 Acetaminophen 325 Mg Tab PO Q4H PRN Pain MILD(1-3)/Fever >100.5/JAQUEZ Clonazepam 0.25 mg 04/15/21 14:00 04/16/21 12:37 Clonazepam 0.5 Mg Tab PO 04/18/21 06:00 0.25 mg BID JORGE Administration Dextrose 0 ml 04/15/21 06:15 Dextrose 10% *Hypoglycemia IV PRN PRN Hypoglycemia Protocol Diphenhydramine HCl 50 mg 04/15/21 05:32 04/15/21 05:54 Diphenhydramine 50 Mg/Ml Vial IM 50 mg Q6H PRN Administration Agitation Divalproex Sodium 500 mg 04/15/21 14:00 04/16/21 12:37 Divalproex Er 500 Mg Tab PO 500 mg BID JORGE Administration Heparin Sodium (Porcine) 5,000 unit 04/15/21 06:00 04/16/21 06:58 Heparin 5,000 Unit/1 Ml Vial SUB-Q Not Given Q8HR [facility] Sodium Chloride 1,000 mls @ 150 mls/hr 04/15/21 05:45 04/15/21 10:17 Nacl 0.9% 1000 Ml IV 150 mls/hr DIRECT [facility] Administration Insulin Human Lispro 0 unit 04/15/21 07:30 04/16/21 08:11 Insulin Lispro 100 Unit/Ml SUB-Q Not Given ACHS [facility] Protocol Lorazepam 2 mg 04/15/21 05:32 Lorazepam 2 Mg/Ml Vial IM Q8H PRN Agitation Magnesium Hydroxide 30 ml 04/15/21 05:39 Magnesium Hydroxide (Mom) Oral Liqd Udc PO Q4H PRN Constipation Morphine Sulfate 2 mg 04/15/21 05:39 Morphine 2 Mg/1 Ml Inj IV Q4H PRN Pain, Moderate (4-6) Morphine Sulfate 4 mg 04/15/21 05:39 Morphine 4 Mg/1 Ml Inj IV Q4H PRN Pain , Severe (7-10) Ondansetron HCl 4 mg 04/15/21 05:39 Ondansetron 4 Mg/2 Ml Inj IV Q8H PRN Nausea And Vomiting Quetiapine Fumarate 100 mg 04/16/21 10:00 Quetiapine 100 Mg Tab PO QAM JORGE Quetiapine Fumarate 300 mg 04/15/21 22:00 04/15/21 22:26 Quetiapine 100 Mg Tab PO Not Given QHS JORGE Sodium Chloride 10 ml 04/15/21 10:00 04/15/21 22:27 Sodium Chloride 0.9% 10 Ml Flush Syringe IV Not Given BID JORGE Sodium Chloride 10 ml 04/15/21 05:39 Sodium Chloride 0.9% 10 Ml Flush Syringe IV PRN PRN LINE FLUSH Ziprasidone 10 mg 04/15/21 05:33 04/16/21 08:10 Ziprasidone Mesylate 20 Mg Vial IM 10 mg Q2H PRN Administration Agitation
--- NOTE | 2021-04-16 15:49 | Discharge Summary ---
Providers - Providers Date of Admission: 04/15/21 05:39 Attending physician: TEODORA LINDA MD 04/15/21 00:27 Consult to Mental Health [CONS] Stat Reason For Exam: Paranoia 04/15/21 05:39 Consult to Dietitian/Nutrition [CONS] Routine Physician Instructions: Reason For Exam: Reason for Consult: Diet education Consult to Physician [CONS] Routine Comment: Consulting Provider: COY DIAZ Physician Instructions: Reason For Exam: HYPERCALCEMIA Primary care physician: HEALTH CENTER MANAGER Hospitalization Condition: Fair Exam - Constitutional Vitals: Temp Pulse Resp BP Pulse Ox 98.3 F 71 18 131/75 95 04/16/21 05:06 04/16/21 05:06 04/16/21 05:06 04/16/21 05:06 04/16/21 08:26 Plan Care Plan Goals: Please follow-up with outpatient psychiatry. Continue to take your medications as prescribed. Follow up with: PRIMARY CARE, [Primary Care Provider] - 7 Days Prescriptions: QUEtiapine [SEROquel] 300 mg PO QHS 30 Days #90 tablet Divalproex ER [Depakote ER] 500 mg PO BID 30 Days #60 tablet clonazePAM [KlonoPIN] 0.25 mg PO BID 1 Days #4 tablet QUEtiapine [SEROquel] 100 mg PO QAM 30 Days #30 tablet
[2021-04-16] MEDS: QUEtiapine 100 MG TAB PO SCH (21:16)
[2021-04-17] MEDS: HEPARIN 5,000 UNIT/1 ML VIAL SUB-Q SCH ×3 (05:27→21:06)
[2021-04-17] MEDS: INSULIN LISPRO 100 UNIT/ML SUB-Q SCH ×3 (08:00→17:00)
--- NOTE | 2021-04-17 10:11 | Progress Note ---
Subjective - Reason for Consult Consult date: 04/17/21 Reason for consult: psychosis - Chief Complaint Chief complaint: The patient was seen today. She is irritable. She is paranoid and delusional. The patient says she's worked up because some little girl came in. She says "I don't know who that child is. She act as if she has business here." The patient says "I don't know what you are talking about when you ask me am I hearing voices. I don't claim nothing in the past. Mayito is the only friend I have apparently." She denies SI/HI. REVIEW OF SYSTEMS Constitutional: Negative for weight loss ENT: Negative for stridor Respiratory: Negative for cough or hemoptysis All other systems reviewed and are negative MENTAL STATUS EXAMINATION General Appearance and Behavior: Age appropriate, good hygiene, wearing appropriate clothes, good eye contact, cooperative, anxious Cooperation: Participating/engaged Mood: okay Affect and affective range: congruent with mood Thought Process: illogical, disorganized Thought Content: flight of ideas Speech: hyperverbal, nonsensical, pressured Suicidal Ideation: Denies SI Homicidal Ideation: Denies Hallucinations: Denies Delusions: Yes Impulse Control: Impaired Insight and Judgment: Poor insight and judgment, Memory: Limited Attention: Divided attention Orientation: Alert, oriented Assessment (1) Schizophrenia Current Visit: Yes Status: Acute Treatment Plan Increased daytime Seroquel 200mg in addition to nighttime dose Change Geodon from q2h to q4h Medical: Per primary Sitter: Per primary team Disposition: Recommend acute psychiatric inpatient treatment Will follow. Thanks Case staffed with Dr. Mason. Mental Status Exam - Vital signs Last Vital Signs Temp 98.3 F 04/17/21 05:13 Pulse 72 04/17/21 05:13 Resp 18 04/17/21 05:13 BP 146/94 04/17/21 05:13 Pulse Ox 97 04/17/21 05:13
[2021-04-17] MEDS: clonazePAM 0.5 MG TAB PO SCH ×2 (10:39→21:06)
[2021-04-17] MEDS: DIVALPROEX ER 500 MG TAB PO SCH ×2 (10:39→21:06)
[2021-04-17] MEDS: QUEtiapine 100 MG TAB PO SCH ×2 (10:40→21:07)
[2021-04-17] MEDS ORDERED: ZIPRASIDONE MESYLATE 20 MG VIAL IM PRN (11:00)
[2021-04-17] MEDS: diphenhydrAMINE 50 MG/ML VIAL IM PRN (22:48)
[2021-04-17] MEDS: LORazepam 2 MG/ML VIAL IM PRN (22:50)
[2021-04-18] MEDS: INSULIN LISPRO 100 UNIT/ML SUB-Q SCH ×3 (02:22→23:58)
[2021-04-18 07:44] LABS: Blood Urea Nitrogen 12 mg/dL (7-17); Calcium 10.8 mg/dL (8.4-10.2); Hemolysis Index 12
[2021-04-18 07:46] LABS: BUN/Creatinine Ratio 20
--- NOTE | 2021-04-18 08:01 | Progress Note ---
Hospitalist Physical - Constitutional Vitals: Temp Pulse Resp BP Pulse Ox 98.6 F 72 19 117/64 94 04/18/21 05:28 04/18/21 05:28 04/18/21 05:28 04/18/21 05:28 04/18/21 05:28 General appearance: Present: no acute distress, well-nourished Results - Labs CBC & Chem 7: 04/16/21 06:11 04/18/21 07:05 Labs: Laboratory Last Values WBC 4.2 K/mm3 (4.5-11.0) L 04/16/21 06:11 RBC 4.66 M/mm3 (3.65-5.03) 04/16/21 06:11 Hgb 12.3 gm/dl (10.1-14.3) 04/16/21 06:11 Hct 39.2 % (30.3-42.9) 04/16/21 06:11 MCV 84 fl (79-97) 04/16/21 06:11 MCH 27 pg (28-32) L 04/16/21 06:11 MCHC 32 % (30-34) 04/16/21 06:11 RDW 13.9 % (13.2-15.2) 04/16/21 06:11 Plt Count 196 K/mm3 (140-440) 04/16/21 06:11 Lymph % (Auto) 49.3 % (13.4-35.0) H 04/16/21 06:11 [place] % (Auto) 6.8 % (0.0-7.3) 04/16/21 06:11 Eos % (Auto) 1.7 % (0.0-4.3) 04/16/21 06:11 Baso % (Auto) 0.8 % (0.0-1.8) 04/16/21 06:11 Lymph # (Auto) 2.0 K/mm3 (1.2-5.4) 04/16/21 06:11 [place] # (Auto) 0.3 K/mm3 (0.0-0.8) 04/16/21 06:11 Eos # (Auto) 0.1 K/mm3 (0.0-0.4) 04/16/21 06:11 Baso # (Auto) 0.0 K/mm3 (0.0-0.1) 04/16/21 06:11 Seg Neutrophils % 41.4 % (40.0-70.0) 04/16/21 06:11 Seg Neutrophils # 1.7 K/mm3 (1.8-7.7) L 04/16/21 06:11 Sodium 139 mmol/L (137-145) 04/18/21 07:05 Potassium 4.2 mmol/L (3.6-5.0) 04/18/21 07:05 Chloride 106.9 mmol/L (98-107) 04/18/21 07:05 Carbon Dioxide 23 mmol/L (22-30) 04/18/21 07:05 Anion Gap 13 mmol/L 04/18/21 07:05 BUN 12 mg/dL (7-17) 04/18/21 07:05 Creatinine 0.6 mg/dL (0.6-1.2) 04/18/21 07:05 Estimated GFR > 60 ml/min 04/18/21 07:05 BUN/Creatinine Ratio 20 % 04/18/21 07:05 Glucose 201 mg/dL (65-100) H 04/18/21 07:05 POC Glucose 183 mg/dL (70-105) H 04/17/21 21:59 Calcium 10.8 mg/dL (8.4-10.2) H 04/18/21 07:05 PTH Intact 103.5 pg/mL (15-65) H 04/15/21 Unknown Urine Color Yellow (Yellow) 04/15/21 22:40 Urine Turbidity Clear (Clear) 04/15/21 22:40 Urine pH 6.0 (5.0-7.0) 04/15/21 22:40 Ur Specific [place] 1.023 (1.003-1.030) 04/15/21 22:40 Urine Protein <15 mg/dl mg/dL (Negative) 04/15/21 22:40 Urine Glucose (UA) Neg mg/dL (Negative) 04/15/21 22:40 Urine Ketones Neg mg/dL (Negative) 04/15/21 22:40 Urine Blood Neg (Negative) 04/15/21 22:40 Urine Nitrite Neg (Negative) 04/15/21 22:40 Urine Bilirubin Neg (Negative) 04/15/21 22:40 Urine Urobilinogen 4.0 mg/dL (<2.0) 04/15/21 22:40 Ur Leukocyte Esterase Tr (Negative) 04/15/21 22:40 Urine WBC (Auto) 1.0 /HPF (0.0-6.0) 04/15/21 22:40 Urine RBC (Auto) 1.0 /HPF (0.0-6.0) 04/15/21 22:40 U Epithel Cells (Auto) < 1.0 /HPF (0-13.0) 04/15/21 22:40 Salicylates < 0.3 mg/dL (2.8-20.0) L 04/15/21 00:51 Urine Opiates Screen Presumptive negative 04/15/21 22:40 Urine Methadone Screen Presumptive negative 04/15/21 22:40 Acetaminophen 5.0 ug/mL (10.0-30.0) L 04/15/21 00:51 Ur Barbiturates Screen Presumptive negative 04/15/21 22:40 Valproic Acid < 2.8 ug/mL (50-100) L 04/15/21 00:51 Ur Phencyclidine Scrn Presumptive negative 04/15/21 22:40 Ur Amphetamines Screen Presumptive negative 04/15/21 22:40 U Benzodiazepines Scrn Presumptive negative 04/15/21 22:40 Urine Cocaine Screen Presumptive negative 04/15/21 22:40 U Marijuana (THC) Screen Presumptive negative 04/15/21 22:40 Drugs of Abuse Note Disclamer 04/15/21 22:40 Immunofix Electrophor see below 04/15/21 Unknown Bello/IV: Voiding Method Toilet Active Medications - Current Medications Current Medications: Generic Name Dose Route Start Last Admin Trade Name Freq PRN Reason Stop Dose Admin Acetaminophen 650 mg 04/15/21 05:39 Acetaminophen 325 Mg Tab PO Q4H PRN Pain MILD(1-3)/Fever >100.5/JAQUEZ Dextrose 0 ml 04/15/21 06:15 Dextrose 10% *Hypoglycemia IV PRN PRN Hypoglycemia Protocol Diphenhydramine HCl 50 mg 04/15/21 05:32 04/17/21 22:48 Diphenhydramine 50 Mg/Ml Vial IM 50 mg Q6H PRN Administration Agitation Divalproex Sodium 500 mg 04/15/21 14:00 04/17/21 21:06 Divalproex Er 500 Mg Tab PO Not Given BID JORGE Heparin Sodium (Porcine) 5,000 unit 04/15/21 06:00 04/17/21 21:06 Heparin 5,000 Unit/1 Ml Vial SUB-Q Not Given Q8HR [facility] Sodium Chloride 1,000 mls @ 150 mls/hr 04/15/21 05:45 04/15/21 10:17 Nacl 0.9% 1000 Ml IV 150 mls/hr DIRECT JORGE Administration Insulin Human Lispro 0 unit 04/15/21 07:30 04/18/21 02:22 Insulin Lispro 100 Unit/Ml SUB-Q Not Given ACHS [facility] Protocol Lorazepam 2 mg 04/15/21 05:32 04/17/21 22:50 Lorazepam 2 Mg/Ml Vial IM 2 mg Q8H PRN Administration Agitation Magnesium Hydroxide 30 ml 04/15/21 05:39 Magnesium Hydroxide (Mom) Oral Liqd Udc PO Q4H PRN Constipation Morphine Sulfate 2 mg 04/15/21 05:39 Morphine 2 Mg/1 Ml Inj IV Q4H PRN Pain, Moderate (4-6) Morphine Sulfate 4 mg 04/15/21 05:39 Morphine 4 Mg/1 Ml Inj IV Q4H PRN Pain , Severe (7-10) Ondansetron HCl 4 mg 04/15/21 05:39 Ondansetron 4 Mg/2 Ml Inj IV Q8H PRN Nausea And Vomiting Quetiapine Fumarate 300 mg 04/15/21 22:00 04/17/21 21:07 Quetiapine 100 Mg Tab PO Not Given QHS [facility] Quetiapine Fumarate 200 mg 04/17/21 11:00 04/17/21 10:40 Quetiapine 100 Mg Tab PO Not Given QAM [facility] Sodium Chloride 10 ml 04/15/21 10:00 04/17/21 21:07 Sodium Chloride 0.9% 10 Ml Flush Syringe IV Not Given BID [facility] Sodium Chloride 10 ml 04/15/21 05:39 Sodium Chloride 0.9% 10 Ml Flush Syringe IV PRN PRN LINE FLUSH Nutrition/Malnutrition Assess - Dietary Evaluation Nutrition/Malnutrition Findings: Nutrition Notes Start: 04/15/21 15:08 Freq: Status: Active Protocol: Document 04/15/21 15:08 MATTY (Rec: 04/15/21 15:18 MATTY [id number]) Nutrition Notes Need for Assessment generated from: MD Order,Education Initial or Follow up Brief Note Current Diagnosis Diabetes,Hypertension Other Pertinent Diagnosis Hypercalcemia, Paranoia, Schizophrenia, Depression. Current Diet Regular Diet (since L 04/15). Labs/Tests 04/15: Glu 186, Ca 11.9. Pertinent Medications 04/15: Insulin, others nutritionally unremarkable. Height 5 ft 7 in Weight 113.398 kg [place] Body Weight (kg) 61.36 BMI 39.1 Intake Prior to Admission Good Weight change and time frame Pt denies having loss body weight [employer] TE[employer]. Weight Status Obese Subjective/Other Information RD consult for Nutrition Education. No reports available on Pt's PO intake of meals at the time . Pt still on critical conditions, not a candidate for Nutrition Education at the time, will assess feasibility on F/U. Percent of energy/protein needs met: Prescribed Regular Diet provides for energy/protein needs (2,289 Kcal/89 g) during LOS. Nutrition Intervention Follow-Up By: 04/22/21 Additional Comments Nutrition education will be provided on F/U, if feasible. Continue monitoring food tolerance, %PO intake of meals , and BM.
[2021-04-18] MEDS: DIVALPROEX ER 500 MG TAB PO SCH ×2 (10:28→23:58)
[2021-04-18] MEDS: QUEtiapine 100 MG TAB PO SCH ×2 (10:29→23:58)
--- NOTE | 2021-04-18 11:25 | Progress Note ---
Assessment and Plan Impression: * Hypercalcemia, asymptomatic - resolved * r/o Primary hyperparathyroidism * Paranoia * Type II diabetes mellitus * Hypertension Plan * Note increase in PTH in setting of hypercalcemia, will order parathyroid scan * Continue conservative management of hypercalcemia * Psychiatric management/work up per primary team/psychiatry * AM labs Subjective Date of service: 04/18/21 Objective - Vital Signs Vital signs: Vital Signs - 12hr 04/17/21 04/18/21 04/18/21 23:59 05:28 09:00 Temperature 98.2 F 98.6 F Pulse Rate 75 72 Respiratory 20 19 Rate Blood Pressure 117/64 Blood Pressure 126/77 [Left] O2 Sat by Pulse 96 94 98 Oximetry - Lab 04/16/21 06:11 04/18/21 07:05 Most recent lab results Calcium 10.8 mg/dL (8.4-10.2) H 04/18/21 07:05 Medications & Allergies - Medications Allergies/Adverse Reactions: Allergies haloperidol [From Haldol] Allergy (Verified 04/14/21 22:41) Unknown Home Medications: Home Medications Medication Instructions Recorded Confirmed Last Taken Type metFORMIN [Glucophage] 500 mg PO BIDDIAB #60 tablet 07/22/20 09/02/20 Unknown Rx Glimepiride [Amaryl] 2 mg PO QDDIAB tablet 09/11/20 Unknown Rx Lispro Insulin [HumaLOG] 0 unit SUB-Q ACHS units 09/11/20 Unknown Rx traZODone [Desyrel] 50 mg PO QHS 30 Days #30 tablet 09/11/20 Unknown Rx Divalproex ER [Depakote ER] 500 mg PO BID 30 Days #60 tablet 04/16/21 Unknown Rx QUEtiapine [SEROquel] 100 mg PO QAM 30 Days #30 tablet 04/16/21 Unknown Rx QUEtiapine [SEROquel] 300 mg PO QHS 30 Days #90 tablet 04/16/21 Unknown Rx clonazePAM [KlonoPIN] 0.25 mg PO BID 1 Days #4 tablet 04/16/21 Unknown Rx Active Medications: Generic Name Dose Route Start Last Admin Trade Name Freq PRN Reason Stop Dose Admin Acetaminophen 650 mg 04/15/21 05:39 Acetaminophen 325 Mg Tab PO Q4H PRN Pain MILD(1-3)/Fever >100.5/JAQUEZ Dextrose 0 ml 04/15/21 06:15 Dextrose 10% *Hypoglycemia IV PRN PRN Hypoglycemia Protocol Diphenhydramine HCl 50 mg 04/15/21 05:32 04/17/21 22:48 Diphenhydramine 50 Mg/Ml Vial IM 50 mg Q6H PRN Administration Agitation Divalproex Sodium 500 mg 04/15/21 14:00 04/18/21 10:28 Divalproex Er 500 Mg Tab PO Not Given BID [facility] Heparin Sodium (Porcine) 5,000 unit 04/15/21 06:00 04/17/21 21:06 Heparin 5,000 Unit/1 Ml Vial SUB-Q Not Given Q8HR [facility] Sodium Chloride 1,000 mls @ 150 mls/hr 04/15/21 05:45 04/15/21 10:17 Nacl 0.9% 1000 Ml IV 150 mls/hr DIRECT JORGE Administration Insulin Human Lispro 0 unit 04/15/21 07:30 04/18/21 08:28 Insulin Lispro 100 Unit/Ml SUB-Q Not Given ACHS [facility] Protocol Lorazepam 2 mg 04/15/21 05:32 04/17/21 22:50 Lorazepam 2 Mg/Ml Vial IM 2 mg Q8H PRN Administration Agitation Magnesium Hydroxide 30 ml 04/15/21 05:39 Magnesium Hydroxide (Mom) Oral Liqd Udc PO Q4H PRN Constipation Morphine Sulfate 2 mg 04/15/21 05:39 Morphine 2 Mg/1 Ml Inj IV Q4H PRN Pain, Moderate (4-6) Morphine Sulfate 4 mg 04/15/21 05:39 Morphine 4 Mg/1 Ml Inj IV Q4H PRN Pain , Severe (7-10) Ondansetron HCl 4 mg 04/15/21 05:39 Ondansetron 4 Mg/2 Ml Inj IV Q8H PRN Nausea And Vomiting Quetiapine Fumarate 300 mg 04/15/21 22:00 04/17/21 21:07 Quetiapine 100 Mg Tab PO Not Given QHS [facility] Quetiapine Fumarate 200 mg 04/17/21 11:00 04/18/21 10:29 Quetiapine 100 Mg Tab PO Not Given QAM [facility] Sodium Chloride 10 ml 04/15/21 10:00 04/18/21 10:29 Sodium Chloride 0.9% 10 Ml Flush Syringe IV Not Given BID JORGE Sodium Chloride 10 ml 04/15/21 05:39 Sodium Chloride 0.9% 10 Ml Flush Syringe IV PRN PRN LINE FLUSH
--- NOTE | 2021-04-18 12:06 | Consultation ---
History of Present Illness - Reason for Consult Consult date: 04/18/21 Reason for consult: schizophrenia - Chief Complaint Chief complaint: The patient was seen today. She continues to be paranoid, pressured speech and hyperverbal. She reports noncompliant with psychotropics for about 2 years mainly because of side effects " Depakote makes me sleepy, Klonopin and Geodon could worsen my health. " She denies any current syucudal ideation and denies hallucinations. REVIEW OF SYSTEMS Constitutional: Negative for weight loss ENT: Negative for stridor Respiratory: Negative for cough or hemoptysis All other systems reviewed and are negative MENTAL STATUS EXAMINATION General Appearance and Behavior: Age appropriate, good hygiene, wearing appropriate clothes, good eye contact, cooperative, anxious Cooperation: Participating/engaged Mood: okay Affect and affective range: congruent with mood Thought Process: illogical, disorganized Thought Content: flight of ideas Speech: hyperverbal, nonsensical, pressured Suicidal Ideation: Denies SI Homicidal Ideation: Denies Hallucinations: Denies Delusions: Yes Impulse Control: Impaired Insight and Judgment: Poor insight and judgment, Memory: Limited Attention: Divided attention Orientation: Alert, oriented Assessment (1) Schizophrenia Current Visit: Yes Status: Acute Treatment Plan Increased daytime Seroquel 200mg in addition to nighttime dose Change Geodon from q2h to q4h Medical: Per primary Sitter: Per primary team Disposition: Recommend acute psychiatric inpatient treatment Will follow. Thanks Case staffed with Dr. Mason. Medications and Allergies Allergies Allergy/AdvReac Type Severity Reaction Status Date / Time haloperidol [From Haldol] Allergy Unknown Verified 04/14/21 22:41 Home Medications Medication Instructions Recorded Confirmed Last Taken Type metFORMIN [Glucophage] 500 mg PO BIDDIAB #60 tablet 07/22/20 09/02/20 Unknown Rx Glimepiride [Amaryl] 2 mg PO QDDIAB tablet 09/11/20 Unknown Rx Lispro Insulin [HumaLOG] 0 unit SUB-Q ACHS units 09/11/20 Unknown Rx traZODone [Desyrel] 50 mg PO QHS 30 Days #30 tablet 09/11/20 Unknown Rx Divalproex ER [Depakote ER] 500 mg PO BID 30 Days #60 tablet 04/16/21 Unknown Rx QUEtiapine [SEROquel] 100 mg PO QAM 30 Days #30 tablet 04/16/21 Unknown Rx QUEtiapine [SEROquel] 300 mg PO QHS 30 Days #90 tablet 04/16/21 Unknown Rx clonazePAM [KlonoPIN] 0.25 mg PO BID 1 Days #4 tablet 04/16/21 Unknown Rx Active Meds: Active Medications Acetaminophen (Acetaminophen 325 Mg Tab) 650 mg PO Q4H PRN PRN Reason: Pain MILD(1-3)/Fever >100.5/JAQUEZ Dextrose (Dextrose 10% *Hypoglycemia) 0 ml IV PRN PRN; Protocol PRN Reason: Hypoglycemia Diphenhydramine HCl (Diphenhydramine 50 Mg/Ml Vial) 50 mg IM Q6H PRN PRN Reason: Agitation Last Admin: 04/17/21 22:48 Dose: 50 mg Divalproex Sodium (Divalproex Er 500 Mg Tab) 500 mg PO BID [facility] Last Admin: 04/18/21 10:28 Dose: Not Given Heparin Sodium (Porcine) (Heparin 5,000 Unit/1 Ml Vial) 5,000 unit SUB-Q Q8HR [facility] Last Admin: 04/17/21 21:06 Dose: Not Given Sodium Chloride (Nacl 0.9% 1000 Ml) 1,000 mls @ 150 mls/hr IV DIRECT [facility] Last Admin: 04/15/21 10:17 Dose: 150 mls/hr Insulin Human Lispro (Insulin Lispro 100 Unit/Ml) 0 unit SUB-Q ACHS [facility]; Protocol Last Admin: 04/18/21 08:28 Dose: Not Given Lorazepam (Lorazepam 2 Mg/Ml Vial) 2 mg IM Q8H PRN PRN Reason: Agitation Last Admin: 04/17/21 22:50 Dose: 2 mg Magnesium Hydroxide (Magnesium Hydroxide (Mom) Oral Liqd Udc) 30 ml PO Q4H PRN PRN Reason: Constipation Morphine Sulfate (Morphine 2 Mg/1 Ml Inj) 2 mg IV Q4H PRN PRN Reason: Pain, Moderate (4-6) Morphine Sulfate (Morphine 4 Mg/1 Ml Inj) 4 mg IV Q4H PRN PRN Reason: Pain , Severe (7-10) Ondansetron HCl (Ondansetron 4 Mg/2 Ml Inj) 4 mg IV Q8H PRN PRN Reason: Nausea And Vomiting Quetiapine Fumarate (Quetiapine 100 Mg Tab) 300 mg PO QHS [facility] Last Admin: 04/17/21 21:07 Dose: Not Given Quetiapine Fumarate (Quetiapine 100 Mg Tab) 200 mg PO QAM [facility] Last Admin: 04/18/21 10:29 Dose: Not Given Sodium Chloride (Sodium Chloride 0.9% 10 Ml Flush Syringe) 10 ml IV BID [facility] Last Admin: 04/18/21 10:29 Dose: Not Given Sodium Chloride (Sodium Chloride 0.9% 10 Ml Flush Syringe) 10 ml IV PRN PRN PRN Reason: LINE FLUSH Mental Status Exam - Vital signs Last Vital Signs Temp 98.6 F 04/18/21 05:28 Pulse 72 04/18/21 05:28 Resp 19 04/18/21 05:28 BP 117/64 04/18/21 05:28 Pulse Ox 98 04/18/21 09:00 Results Result Diagrams: 04/16/21 06:11 04/18/21 07:05 Abnormal lab results 04/17/21 04/17/21 04/17/21 Range/Units 12:15 18:03 21:59 Glucose (65-100) mg/dL POC Glucose 205 H 161 H 183 H (70-105) mg/dL Calcium (8.4-10.2) mg/dL 04/18/21 04/18/21 Range/Units 07:05 11:34 Glucose 201 H (65-100) mg/dL POC Glucose 206 H (70-105) mg/dL Calcium 10.8 H (8.4-10.2) mg/dL All other labs normal.
[2021-04-18] MEDS: diphenhydrAMINE 50 MG/ML VIAL IM PRN (23:21)
[2021-04-18] MEDS: LORazepam 2 MG/ML VIAL IM PRN (23:22)
[2021-04-18] MEDS: HEPARIN 5,000 UNIT/1 ML VIAL SUB-Q SCH (23:58)
[2021-04-19] MEDS: DIVALPROEX ER 500 MG TAB PO SCH ×2 (10:08→23:10)
[2021-04-19] MEDS: INSULIN LISPRO 100 UNIT/ML SUB-Q SCH ×2 (10:08→23:10)
[2021-04-19] MEDS: QUEtiapine 100 MG TAB PO SCH ×2 (10:09→23:10)
--- NOTE | 2021-04-19 14:35 | Progress Note ---
Subjective - Reason for Consult Consult date: 04/19/21 Reason for consult: Paranoia - Chief Complaint Chief complaint: The patient was seen today. She is calm and less talkative. The patient states that she is doing well. She reports sleep and appetite as good. She denies any current suicidal/homicidal ideation and denies hallucinations. REVIEW OF SYSTEMS Constitutional: Negative for weight loss ENT: Negative for stridor Respiratory: Negative for cough or hemoptysis All other systems reviewed and are negative MENTAL STATUS EXAMINATION General Appearance and Behavior: Age appropriate, good hygiene, wearing appropriate clothes, good eye contact, cooperative, anxious Cooperation: Participating/engaged Mood: okay Affect and affective range: congruent with mood Thought Process: Goal directed Thought Content: Reality oriented Speech: Normal Suicidal Ideation: Denies Homicidal Ideation: Denies Hallucinations: Denies Delusions: Denies Impulse Control: Impaired Insight and Judgment: Limited insight and judgment, Memory: Limited Attention: Divided attention Orientation: Alert, oriented Assessment (1) Schizophrenia Current Visit: Yes Status: Acute Dc 1013 Treatment Plan Sitter: Per primary team Disposition: Do not recommend acute psychiatric inpatient treatment. Nutrition Teacher will provide patient with psychiatric out patient resources Will sign off. Thanks Case staffed with Dr. Mason. Mental Status Exam - Vital signs Last Vital Signs Temp 98.6 F 04/18/21 05:28 Pulse 72 04/18/21 05:28 Resp 19 04/18/21 05:28 BP 117/64 04/18/21 05:28 Pulse Ox 98 04/18/21 21:00
--- NOTE | 2021-04-19 16:21 | Progress Note ---
Assessment and Plan Impression: * Hypercalcemia, asymptomatic - resolved * r/o Primary hyperparathyroidism * Paranoia * Type II diabetes mellitus * Hypertension Plan * Parathyroid scan ordered yesterday - patient refused study * Patient is refusing medications and labs * Continue conservative management of hypercalcemia * Psychiatric management/work up per primary team/psychiatry * Will follow peripherally. Not much to add until underlying psychiatric illness, which remains a barrier to her medical care, is managed/resolved. Subjective Date of service: 04/19/21 Interval history: Chart, vitals, labs reviewed. Patient remains on cell phone during visit. Holds up finger signalling for me to wait. Objective - General Appearance General appearance: well-developed, well-nourished EENT: ATNC Respiratory: Present: Other (unable to examine) Cardiology: other (unable to examine) Gastrointestinal: other (unable to examine) Integumentary: no rash - Lab 04/16/21 06:11 04/18/21 07:05 Most recent lab results Calcium 10.8 mg/dL (8.4-10.2) H 04/18/21 07:05 Medications & Allergies - Medications Allergies/Adverse Reactions: Allergies haloperidol [From Haldol] Allergy (Verified 04/14/21 22:41) Unknown Home Medications: Home Medications Medication Instructions Recorded Confirmed Last Taken Type metFORMIN [Glucophage] 500 mg PO BIDDIAB #60 tablet 07/22/20 09/02/20 Unknown Rx Glimepiride [Amaryl] 2 mg PO QDDIAB tablet 09/11/20 Unknown Rx Lispro Insulin [HumaLOG] 0 unit SUB-Q ACHS units 09/11/20 Unknown Rx traZODone [Desyrel] 50 mg PO QHS 30 Days #30 tablet 09/11/20 Unknown Rx Divalproex ER [Depakote ER] 500 mg PO BID 30 Days #60 tablet 04/16/21 Unknown Rx QUEtiapine [SEROquel] 100 mg PO QAM 30 Days #30 tablet 04/16/21 Unknown Rx QUEtiapine [SEROquel] 300 mg PO QHS 30 Days #90 tablet 04/16/21 Unknown Rx clonazePAM [KlonoPIN] 0.25 mg PO BID 1 Days #4 tablet 04/16/21 Unknown Rx Active Medications: Generic Name Dose Route Start Last Admin Trade Name Freq PRN Reason Stop Dose Admin Acetaminophen 650 mg 04/15/21 05:39 Acetaminophen 325 Mg Tab PO Q4H PRN Pain MILD(1-3)/Fever >100.5/JAQUEZ Dextrose 0 ml 04/15/21 06:15 Dextrose 10% *Hypoglycemia IV PRN PRN Hypoglycemia Protocol Diphenhydramine HCl 50 mg 04/15/21 05:32 04/18/21 23:21 Diphenhydramine 50 Mg/Ml Vial IM 50 mg Q6H PRN Administration Agitation Divalproex Sodium 500 mg 04/15/21 14:00 04/19/21 10:08 Divalproex Er 500 Mg Tab PO Not Given BID [facility] Heparin Sodium (Porcine) 5,000 unit 04/15/21 06:00 04/18/21 23:58 Heparin 5,000 Unit/1 Ml Vial SUB-Q Not Given Q8HR [facility] Sodium Chloride 1,000 mls @ 150 mls/hr 04/15/21 05:45 04/15/21 10:17 Nacl 0.9% 1000 Ml IV 150 mls/hr DIRECT JORGE Administration Insulin Human Lispro 0 unit 04/15/21 07:30 04/19/21 10:08 Insulin Lispro 100 Unit/Ml SUB-Q Not Given ACHS [facility] Protocol Lorazepam 2 mg 04/15/21 05:32 04/18/21 23:22 Lorazepam 2 Mg/Ml Vial IM 2 mg Q8H PRN Administration Agitation Magnesium Hydroxide 30 ml 04/15/21 05:39 Magnesium Hydroxide (Mom) Oral Liqd Udc PO Q4H PRN Constipation Morphine Sulfate 2 mg 04/15/21 05:39 Morphine 2 Mg/1 Ml Inj IV Q4H PRN Pain, Moderate (4-6) Morphine Sulfate 4 mg 04/15/21 05:39 Morphine 4 Mg/1 Ml Inj IV Q4H PRN Pain , Severe (7-10) Ondansetron HCl 4 mg 04/15/21 05:39 Ondansetron 4 Mg/2 Ml Inj IV Q8H PRN Nausea And Vomiting Quetiapine Fumarate 300 mg 04/15/21 22:00 04/18/21 23:58 Quetiapine 100 Mg Tab PO Not Given QHS [facility] Quetiapine Fumarate 200 mg 04/17/21 11:00 04/19/21 10:09 Quetiapine 100 Mg Tab PO Not Given QAM [facility] Sodium Chloride 10 ml 04/15/21 10:00 04/19/21 10:09 Sodium Chloride 0.9% 10 Ml Flush Syringe IV Not Given BID JORGE Sodium Chloride 10 ml 04/15/21 05:39 Sodium Chloride 0.9% 10 Ml Flush Syringe IV PRN PRN LINE FLUSH
[2021-04-19] MEDS: HEPARIN 5,000 UNIT/1 ML VIAL SUB-Q SCH (23:10)
[2021-04-20] MEDS: INSULIN LISPRO 100 UNIT/ML SUB-Q SCH ×3 (08:43→16:40)
[2021-04-20] MEDS: QUEtiapine 100 MG TAB PO SCH (09:42)
[2021-04-20] MEDS: DIVALPROEX ER 500 MG TAB PO SCH (09:42)
[2021-04-20] MEDS: HEPARIN 5,000 UNIT/1 ML VIAL SUB-Q SCH ×2 (09:43→14:15)
[2021-04-21] MEDS: HEPARIN 5,000 UNIT/1 ML VIAL SUB-Q SCH (00:10)
[2021-04-21] MEDS: DIVALPROEX ER 500 MG TAB PO SCH ×2 (00:11→10:27)
[2021-04-21] MEDS: QUEtiapine 100 MG TAB PO SCH ×2 (00:11→10:27)
[2021-04-21] MEDS: INSULIN LISPRO 100 UNIT/ML SUB-Q SCH ×2 (00:11→10:27)
[2021-04-21 00:38] VITALS: BP 140/96
== END 2021-04-21 12:10 | disposition home or self-care (01) ==
LOC: ED 22:12 → INTOOBSV 04-15 05:39 → 3A 04-15 05:39
PROVIDERS: ADMIT Internal Medicine Geriatric Medicine; ATTEND Student in an Organized Health Care Education/Training Program
DX: F22 Delusional disorders (principal); Z20.822 Contact with and (suspected) exposure to COVID-19; I10 Essential (primary) hypertension; E11.9 Type 2 diabetes mellitus without complications; E83.52 Hypercalcemia; F41.9 Anxiety disorder, unspecified; F32.9 Major depressive disorder, single episode, unspecified; F20.9 Schizophrenia, unspecified; Z79.84 Long term (current) use of oral hypoglycemic drugs; Z79.4 Long term (current) use of insulin; Z79.899 Other long term (current) drug therapy; Z98.890 Other specified postprocedural states
CPT/HCPCS: 36415; 80048; 80164; 80307; 81001; 82164; 82330; 82962; 83970; 85025; 86334; 93005; 93010; 96360; 96361; 96372; 99285; G0378; J1200; J1644; J2060; J3486; J7030; U0003; 80320; Q0162; Q9967; G0480; J1815

== ENCOUNTER 2021-04-21 14:56 | Emergency (ER) | payer MEDICARE ==
[2021-04-21] MEDS ORDERED: ZIPRASIDONE MESYLATE 20 MG VIAL IM STA (17:22)
--- NOTE | 2021-04-21 17:29 | Emergency Department Report ---
ED Psych HPI - General Chief Complaint: Psych Stated Complaint: psych Time Seen by Provider: 04/21/21 16:25 Source: patient, EMS, old records reviewed Mode of arrival: Ambulatory - History of Present Illness Initial Comments: Chief complaint: Abnormal behavior HPI: This is a 50-year-old female with history of schizophrenia, hypercalcemia, hypertension, diabetes mellitus who presents with abnormal behavior. Patient would not cooperate with history taking. She has pressured speech. She is speaking to persons who are not visible. She is agitated. Is facing the treatment area. MD Complaint: altered mental status -: Gradual, unknown Associated Psychiatric Symptoms: racing thoughts, auditory hallucinations History of same: Yes Quality: constant Improves With: none Worsens With: none Context: other (Recently discharged from this hospital ) Treatments Prior to Arrival: none - Related Data Previous Rx's Medication Instructions Recorded Last Taken Type metFORMIN [Glucophage] 500 mg PO BIDDIAB #60 tablet 07/22/20 Unknown Rx Glimepiride [Amaryl] 2 mg PO QDDIAB tablet 09/11/20 Unknown Rx Lispro Insulin [HumaLOG] 0 unit SUB-Q ACHS units 09/11/20 Unknown Rx traZODone [Desyrel] 50 mg PO QHS 30 Days #30 tablet 09/11/20 Unknown Rx Divalproex ER [Depakote ER] 500 mg PO BID 30 Days #60 tablet 04/16/21 Unknown Rx QUEtiapine [SEROquel] 100 mg PO QAM 30 Days #30 tablet 04/16/21 Unknown Rx QUEtiapine [SEROquel] 300 mg PO QHS 30 Days #90 tablet 04/16/21 Unknown Rx clonazePAM [KlonoPIN] 0.25 mg PO BID 1 Days #4 tablet 04/16/21 Unknown Rx Allergies Allergy/AdvReac Type Severity Reaction Status Date / Time haloperidol [From Haldol] Allergy Unknown Verified 04/21/21 15:06 ED Review of Systems ROS: Stated complaint: psych Other details as noted in HPI Comment: Unobtainable due to pts medical conditions (Patient would not cooperate with history taking, altered mental status acute psychosis) ED Past Medical Hx - Past Medical History Previous Medical History?: Yes Hx Hypertension: Yes Hx Diabetes: Yes Hx Psychiatric Treatment: Yes (depression, anxiety) - Surgical History Past Surgical History?: No Additional Surgical History: "I don't remember", pt stated - Social History Smoking Status: Never Smoker Substance Use Type: None - Medications Home Medications: Home Medications Medication Instructions Recorded Confirmed Last Taken Type metFORMIN [Glucophage] 500 mg PO BIDDIAB #60 tablet 07/22/20 04/21/21 Unknown Rx Glimepiride [Amaryl] 2 mg PO QDDIAB tablet 09/11/20 04/21/21 Unknown Rx Lispro Insulin [HumaLOG] 0 unit SUB-Q ACHS units 09/11/20 04/21/21 Unknown Rx traZODone [Desyrel] 50 mg PO QHS 30 Days #30 tablet 09/11/20 04/21/21 Unknown Rx Divalproex ER [Depakote ER] 500 mg PO BID 30 Days #60 tablet 04/16/21 04/21/21 Unknown Rx QUEtiapine [SEROquel] 100 mg PO QAM 30 Days #30 tablet 04/16/21 04/21/21 Unknown Rx QUEtiapine [SEROquel] 300 mg PO QHS 30 Days #90 tablet 04/16/21 04/21/21 Unknown Rx clonazePAM [KlonoPIN] 0.25 mg PO BID 1 Days #4 tablet 04/16/21 04/21/21 Unknown Rx ED Physical Exam - General Limitations: No Limitations General appearance: alert, in no apparent distress, other (pacing treatment area, agitated, pressured speech, will not allow lung/heart auscultation) - Head Head exam: Present: atraumatic, normocephalic - Eye Eye exam: Present: normal appearance - ENT ENT exam: Present: mucous membranes moist - Neck Neck exam: Present: normal inspection - Respiratory Respiratory exam: Absent: respiratory distress - GI/Abdominal GI/Abdominal exam: Present: soft, distended - Extremities Exam Extremities exam: Present: normal inspection - Neurological Exam Neurological exam: Present: alert, altered - Psychiatric Psychiatric exam: Present: agitated - Skin Skin exam: Present: warm, dry, intact, normal color, other (Pressured continuous speech with flight of ideas disorganized thought process). Absent: rash ED Course Vital Signs 04/21/21 15:05 Pulse Rate 115 H Respiratory 18 Rate Blood Pressure 169/94 [Right] O2 Sat by Pulse 98 Oximetry ED Medical Decision Making - Medical Decision Making Acute psychosis with history of schizophrenia. Patient required chemical restraint with Geodon upon arrival. She is medically clear for psychiatric care. 1013 form completed. ED hold order in place. Awaiting treatment recommendations by psychiatry team. Patient would not allow lab draw. I have asked my colleague to follow-up results. Critical care attestation.: If time is entered above; I have spent that time in minutes in the direct care of this critically ill patient, excluding procedure time. ED Disposition Clinical Impression: Acute psychosis, Schizophrenia Disposition: 30 STILL A PATIENT Is pt being admited?: No Does the pt Need Aspirin: No Condition: Stable
[2021-04-21 18:45] LABS: Basophils % (Auto) 0.8 % (0.0-1.8); Eosinophils % (Auto) 0.4 % (0.0-4.3); Hemoglobin 13.6 gm/dl (10.1-14.3); Lymphocytes % (Auto) 34.4 % (13.4-35.0); Mean Corpuscular HGB Conc 33 % (30-34); Mean Corpuscular Volume 83 fl (79-97); Monocytes # (Auto) 0.3 K/mm3 (0.0-0.8); Monocytes % (Auto) 5.8 % (0.0-7.3); Platelet Count 235 K/mm3 (140-440); Red Blood Count 4.93 M/mm3 (3.65-5.03); Red Cell Distribution Width 14.5 % (13.2-15.2)
[2021-04-21 19:05] LABS: Alanine Aminotransferase 51 units/L (7-56); Albumin 4.4 g/dL (3.9-5); Blood Urea Nitrogen 15 mg/dL (7-17); Calcium 11.5 mg/dL (8.4-10.2); Hemolysis Index 7
[2021-04-21 19:12] LABS: BUN/Creatinine Ratio 25
[2021-04-22 04:03] LABS: Amphetamine Screen,Urine PRESUMPTIVE NEGATIVE; Benzodiazepines Screen,Urine PRESUMPTIVE NEGATIVE; Cannabinoid Screen,Urine PRESUMPTIVE NEGATIVE; Cocaine Screen,Urine PRESUMPTIVE NEGATIVE; Methadone Screen,Urine PRESUMPTIVE NEGATIVE; Opiate Screen,Urine PRESUMPTIVE NEGATIVE
[2021-04-22 04:16] LABS: Bilirubin,Urine NEG (Negative); Blood,Urine NEG (Negative); Color,Urine Yellow (Yellow); Mucus,Urine FEW /HPF; Protein,Urine <15 mg/dL mg/dL (Negative); Urobilinogen,Urine < 2.0 mg/dL (<2.0)
--- NOTE | 2021-04-22 12:12 | Consultation ---
History of Present Illness - Reason for Consult Consult date: 04/22/21 Reason for consult: mental health evaluation - History of Present Psychiatric Illness The patient is a 50 year old female with history of bipolar. The patient was seen this morning. She presents with rapid, pressured speech, and flight of ideas. The patient was recently discharged, she is noncompliant with psychotropic meds. She continues to present with manic symptoms. The patient denies any current suicidal/homicidal ideation. PAST PSYCHIATRIC HISTORY: PAST MEDICAL HISTORY: None reported or document Family Psychiatric History: None reported or documented SOCIAL HISTORY REVIEW OF SYSTEMS MENTAL STATUS EXAMINATION Assessment and Plan (1) Bipolar Current Visit: Yes Status: Acute 1013 Treatment Plan Continue home meds. The patient to comply with previously prescribed medications Risks, benefits and alternatives of medications discussed with the patient, questions answered and consent obtained from patient. PSYCHOTHERAPY: Supportive psychotherapy provided MEDICAL: Per primary team DELIRIUM PRECAUTIONS: Please re-orient patient frequently, keep lights on during the day, and minimize benzodiazepines and opiates as these medications could worsen patient's confusion. CELERY PACKER: Defer to primary DISPOSITION:Recommend acute inpatient psychiatric hospitalization at this time. FOLLOW-UP: Will follow. Thank you for the consult. Please contact with any questions and/or concerns. Medications and Allergies Medications and Allergies Allergies Allergy/AdvReac Type Severity Reaction Status Date / Time haloperidol [From Haldol] Allergy Unknown Verified 04/21/21 15:06 Home Medications Medication Instructions Recorded Confirmed Last Taken Type metFORMIN [Glucophage] 500 mg PO BIDDIAB #60 tablet 07/22/20 04/21/21 Unknown Rx Glimepiride [Amaryl] 2 mg PO QDDIAB tablet 09/11/20 04/21/21 Unknown Rx Lispro Insulin [HumaLOG] 0 unit SUB-Q ACHS units 09/11/20 04/21/21 Unknown Rx traZODone [Desyrel] 50 mg PO QHS 30 Days #30 tablet 09/11/20 04/21/21 Unknown Rx Divalproex ER [Depakote ER] 500 mg PO BID 30 Days #60 tablet 04/16/21 04/21/21 Unknown Rx QUEtiapine [SEROquel] 100 mg PO QAM 30 Days #30 tablet 04/16/21 04/21/21 Unknown Rx QUEtiapine [SEROquel] 300 mg PO QHS 30 Days #90 tablet 04/16/21 04/21/21 Unknown Rx clonazePAM [KlonoPIN] 0.25 mg PO BID 1 Days #4 tablet 04/16/21 04/21/21 Unknown Rx Mental Status Exam - Vital signs Last Vital Signs Temp 98.5 F 04/22/21 11:02 Pulse 75 04/22/21 11:02 Resp 18 04/22/21 11:02 BP 125/68 04/22/21 11:02 Pulse Ox 99 04/22/21 11:02 Results Result Diagrams: 04/21/21 18:11 04/21/21 18:11 Abnormal lab results 04/21/21 04/21/21 04/21/21 Range/Units 18:11 18:11 18:11 Carbon Dioxide 19 L (22-30) mmol/L Glucose 251 H (65-100) mg/dL Calcium 11.5 H (8.4-10.2) mg/dL Urine WBC (Auto) (0.0-6.0) /HPF Salicylates < 0.3 L (2.8-20.0) mg/dL Acetaminophen 5.0 L (10.0-30.0) ug/mL 04/22/21 Range/Units 03:28 Carbon Dioxide (22-30) mmol/L Glucose (65-100) mg/dL Calcium (8.4-10.2) mg/dL Urine WBC (Auto) 11.0 H (0.0-6.0) /HPF Salicylates (2.8-20.0) mg/dL Acetaminophen (10.0-30.0) ug/mL All other labs normal.
--- NOTE | 2021-04-22 13:00 | Event Note ---
Date: 04/22/21 S: Patient talking to self. No other events reported overnight O: Vital Signs - 8 hr 04/22/21 04/22/21 08:27 11:02 Temperature 98.5 F Pulse Rate 75 Respiratory 18 Rate Blood Pressure 125/68 [Right] O2 Sat by Pulse 97 99 Oximetry A: Schizophrenia P: Awaiting psych evaluation
[2021-04-22] MEDS ORDERED: metFORMIN 500 MG TAB PO SCH (17:00)
[2021-04-22 20:19] VITALS: BP 127/82
[2021-04-22] MEDS ORDERED: traZODone 50 MG TAB PO SCH (22:00)
[2021-04-22] MEDS ORDERED: QUEtiapine 100 MG TAB PO SCH (22:00)
[2021-04-22] MEDS ORDERED: clonazePAM 0.5 MG TAB PO SCH (22:00)
[2021-04-22] MEDS ORDERED: INSULIN LISPRO 100 UNIT/ML SUB-Q SCH (22:00)
[2021-04-22] MEDS ORDERED: DIVALPROEX ER 500 MG TAB PO SCH (22:00)
[2021-04-23] MEDS ORDERED: GLIMEPIRIDE 2 MG TAB PO SCH (08:00)
[2021-04-23] MEDS ORDERED: QUEtiapine 100 MG TAB PO SCH (10:00)
== END 2021-04-22 23:21 | disposition still patient (30) ==
LOC: ED 14:56
DX: F23 Brief psychotic disorder (principal); Z20.822 Contact with and (suspected) exposure to COVID-19; I10 Essential (primary) hypertension; E11.8 Type 2 diabetes mellitus with unspecified complications; Z88.8 Allergy status to other drugs, medicaments and biological substances
CPT/HCPCS: 36415; 80053; 80164; 80307; 81001; 82962; 85025; 87086; 96372; 99285; J3486; U0003; 80320; G0480

== ENCOUNTER 2021-05-31 09:58 | Emergency (ER) | payer MEDICARE ==
[2021-05-31] MEDS ORDERED: cloNIDine 0.2 MG TAB PO ONE (10:32)
[2021-05-31] MEDS ORDERED: INSULIN REGULAR, HUMAN 100 UNITS/1 ML SUB-Q ONE (10:45)
--- NOTE | 2021-05-31 11:13 | Emergency Department Report ---
ED General Adult HPI - General Chief complaint: Pain General Stated complaint: LEG PAIN Time Seen by Provider: 05/31/21 10:31 Source: patient, EMS Mode of arrival: Ambulatory Limitations: No Limitations - History of Present Illness Initial comments: 50-year-old female with a past medical history of diabetes, hypertension, schizophrenia, and anxiety presents to the hospital with complaints of elevated blood pressure and extremity pain. Patient is homeless and [place] [facility] [facility] [place]. The police assessment the called EMS. Upon arrival patient was found to be hypertensive with complaint of leg pain. Upon my evaluation patient complains of bilateral forearm and bilateral calf pain that have been ongoing x1 week. Patient has been carrying her large bags full of items around since she is homeless. She is not currently taking any medications for her mental health or medical conditions. She denies tax auditor y or visual hallucinations, suicidal, or homicidal ideation. She also denies chest pain, focal weakness focal numbness but does complain of a mild headache Severity scale (0 -10): 0 - Related Data Previous Rx's Medication Instructions Recorded Last Taken Type Glimepiride [Amaryl] 2 mg PO QDDIAB tablet 09/11/20 Unknown Rx Lispro Insulin [HumaLOG] 0 unit SUB-Q ACHS units 09/11/20 Unknown Rx traZODone [Desyrel] 50 mg PO QHS 30 Days #30 tablet 09/11/20 Unknown Rx Divalproex ER [Depakote ER] 500 mg PO BID 30 Days #60 tablet 04/16/21 Unknown Rx QUEtiapine [SEROquel] 100 mg PO QAM 30 Days #30 tablet 04/16/21 Unknown Rx QUEtiapine [SEROquel] 300 mg PO QHS 30 Days #90 tablet 04/16/21 Unknown Rx clonazePAM [KlonoPIN] 0.25 mg PO BID 1 Days #4 tablet 04/16/21 Unknown Rx metFORMIN [Glucophage] 500 mg PO BIDDIAB #60 tablet 05/31/21 Unknown Rx Allergies Allergy/AdvReac Type Severity Reaction Status Date / Time haloperidol [From Haldol] Allergy Unknown Verified 05/31/21 13:00 ED Review of Systems ROS: Stated complaint: LEG PAIN Other details as noted in HPI Comment: All other systems reviewed and negative ED Past Medical Hx - Past Medical History Hx Hypertension: Yes Hx Diabetes: Yes Hx Psychiatric Treatment: Yes (depression, anxiety, schizophrenia) - Surgical History Past Surgical History?: No Additional Surgical History: "I don't remember", pt stated - Social History Smoking Status: Never Smoker Substance Use Type: None - Medications Home Medications: Home Medications Medication Instructions Recorded Confirmed Last Taken Type Glimepiride [Amaryl] 2 mg PO QDDIAB tablet 09/11/20 04/21/21 Unknown Rx Lispro Insulin [HumaLOG] 0 unit SUB-Q ACHS units 09/11/20 04/21/21 Unknown Rx traZODone [Desyrel] 50 mg PO QHS 30 Days #30 tablet 09/11/20 04/21/21 Unknown Rx Divalproex ER [Depakote ER] 500 mg PO BID 30 Days #60 tablet 04/16/21 04/21/21 Unknown Rx QUEtiapine [SEROquel] 100 mg PO QAM 30 Days #30 tablet 04/16/21 04/21/21 Unknown Rx QUEtiapine [SEROquel] 300 mg PO QHS 30 Days #90 tablet 04/16/21 04/21/21 Unknown Rx clonazePAM [KlonoPIN] 0.25 mg PO BID 1 Days #4 tablet 04/16/21 04/21/21 Unknown Rx metFORMIN [Glucophage] 500 mg PO BIDDIAB #60 tablet 05/31/21 Unknown Rx ED Physical Exam - General Limitations: No Limitations - Other Other exam information: General: No acute distress Head: Atraumatic Eyes: normal appearance ENT: Moist mucous membranes Neck: Normal appearance, no midline tenderness Chest: Clear to auscultation bilaterally CV: Regular rate and rhythm Abdomen: Soft, normal bowel sounds, nontender, nondistended, no rebound or guarding Back: Normal inspection, nontender Extremity: Normal inspection, full range of motion, nontender, no edema, warmth, or erythema Neuro: Alert O x 3, no facial asymmetry, speech clear, no gross motor sensory deficit Psych: Appropriate behavior Skin: No rash ED Course Vital Signs 05/31/21 05/31/21 05/31/21 10:03 10:47 10:57 Temperature 98.3 F Pulse Rate 60 56 L Respiratory 16 16 Rate Blood Pressure 201/111 124/86 [Left] Blood Pressure [Right] O2 Sat by Pulse 100 99 Oximetry 05/31/21 05/31/21 11:16 12:56 Temperature Pulse Rate 85 Respiratory Rate Blood Pressure [Left] Blood Pressure 133/87 131/69 [Right] O2 Sat by Pulse Oximetry - Reevaluation(s) Reevaluation #1: 05/31/21 14:31 glucose 266 after subcutaneous insulin and IVF. labs unremarkable other than hyperglcycemia ED Medical Decision Making - Lab Data Result diagrams: 05/31/21 11:08 05/31/21 11:08 Lab Results 05/31/21 05/31/21 05/31/21 Range/Units 11:08 11:08 11:08 WBC 5.8 (4.5-11.0) K/mm3 RBC 4.50 (3.65-5.03) M/mm3 Hgb 12.7 (10.1-14.3) gm/dl Hct 37.9 (30.3-42.9) % MCV 84 (79-97) fl MCH 28 (28-32) pg MCHC 33 (30-34) % RDW 13.9 (13.2-15.2) % Plt Count 193 (140-440) K/mm3 Lymph % (Auto) 32.2 (13.4-35.0) % Hardeman % (Auto) 8.8 H (0.0-7.3) % Eos % (Auto) 1.6 (0.0-4.3) % Baso % (Auto) 1.2 (0.0-1.8) % Lymph # (Auto) 1.9 (1.2-5.4) K/mm3 Hardeman # (Auto) 0.5 (0.0-0.8) K/mm3 Eos # (Auto) 0.1 (0.0-0.4) K/mm3 Baso # (Auto) 0.1 (0.0-0.1) K/mm3 Seg Neutrophils % 56.2 (40.0-70.0) % Seg Neutrophils # 3.3 (1.8-7.7) K/mm3 D-Dimer 143.69 (0-234) ng/mlDDU Sodium 140 (137-145) mmol/L Potassium 4.0 (3.6-5.0) mmol/L Chloride 103.5 (98-107) mmol/L Carbon Dioxide 24 (22-30) mmol/L Anion Gap 17 mmol/L BUN 12 (7-17) mg/dL Creatinine 0.6 (0.6-1.2) mg/dL Estimated GFR > 60 ml/min BUN/Creatinine Ratio 20 % Glucose 319 H (65-100) mg/dL Calcium 11.8 H (8.4-10.2) mg/dL - Medical Decision Making 50-year-old female presents to the hospital as a EMS was notified by police. Patient complains of muscle skeletal pain likely secondary to carrying her bags. Initial elevated blood pressure spontaneous improved with repeat measurements and patient did not receive any BP medication in the ED. Labs include CBC, BMP, and D-dimer all negative. Patient did receive subcutaneous insulin for mild hyperglycemia. Critical Care Time: No Critical care attestation.: If time is entered above; I have spent that time in minutes in the direct care of this critically ill patient, excluding procedure time. ED Disposition Clinical Impression: Elevated blood pressure reading, Diabetes, Noncompliance with medication regimen, Schizophrenia, Homeless Disposition: 01 HOME / SELF CARE / HOMELESS Is pt being admited?: No Does the pt Need Aspirin: No Condition: Stable Instructions: Diabetes Mellitus Type 2 in Adults (ED), Type 2 Diabetes Nicole armstrong, Diagnosis, Adult, [id number], Preventing Hypertension Additional Instructions: Take the medication as prescribed. Follow-up with your doctor or doctor/clinic provided for further treatment and reevaluation of your blood pressure and diabetes medication.. Return if symptoms worsen as indicated by your discharge instructions. Prescriptions: metFORMIN [Glucophage] 500 mg PO BIDDIAB #60 tablet Referrals: PRIMARY CAREMD [Primary Care Provider] - 3-5 Days [facility] [Provider Group] - 3-5 Days [facility] [Outside] - 3-5 Days Time of Disposition: 14:35
[2021-05-31 11:33] LABS: Basophils # (Auto) 0.1 K/mm3 (0.0-0.1); Basophils % (Auto) 1.2 % (0.0-1.8); Eosinophils # (Auto) 0.1 K/mm3 (0.0-0.4); Eosinophils % (Auto) 1.6 % (0.0-4.3); Hematocrit 37.9 % (30.3-42.9); Hemoglobin 12.7 gm/dl (10.1-14.3); Lymphocytes # (Auto) 1.9 K/mm3 (1.2-5.4); Lymphocytes % (Auto) 32.2 % (13.4-35.0); Mean Corpuscular HGB Conc 33 % (30-34); Mean Corpuscular Volume 84 fl (79-97); Monocytes # (Auto) 0.5 K/mm3 (0.0-0.8); Monocytes % (Auto) 8.8 % (0.0-7.3); Platelet Count 193 K/mm3 (140-440); Red Cell Distribution Width 13.9 % (13.2-15.2)
[2021-05-31 11:55] LABS: Blood Urea Nitrogen 12 mg/dL (7-17); Calcium 11.8 mg/dL (8.4-10.2); Hemolysis Index 15
[2021-05-31 11:58] LABS: BUN/Creatinine Ratio 20
[2021-05-31] MEDS ORDERED: SODIUM CHLORIDE 0.9% 1000 ML 1,000 ML ONE (12:48)
[2021-05-31 12:57] VITALS: BP 131/69
[2021-05-31] MEDS ORDERED: SODIUM CHLORIDE 0.9% 1000 ML 1,000 ML IV ONE (12:58)
== END 2021-05-31 16:17 | disposition home or self-care (01) ==
LOC: ED 09:58
DX: I10 Essential (primary) hypertension (principal); E11.9 Type 2 diabetes mellitus without complications; F20.9 Schizophrenia, unspecified; Z91.14 Patient's other noncompliance with medication regimen; Z59.00 Homelessness unspecified; Z91.09 Other allergy status, other than to drugs and biological substances
CPT/HCPCS: 36415; 80048; 82962; 85025; 85379; 96360; 96372; 99284; J7030; Q0162; Q9967; J1815